=== PATIENT | female | born 1955 | race Caucasian/White ===

== ENCOUNTER → 2016-10-14 | Outpatient (CLI) | payer OTHER ==
[~2016-10-14] MED LIST: CEPH500C PO
== END | disposition home or self-care (01) ==
LOC: C.CPL 16:28
PROVIDERS: ATTEND Orthopaedic Surgery
DX: Z01.810 Encounter for preprocedural cardiovascular examination (principal)

== ENCOUNTER 2017-08-16 11:05 | Emergency (ER) | payer OTHER ==
[~2017-08-16] VITALS: Ht 162.6 cm; Wt 86.9 kg
[2017-08-16 11:09] VITALS: Ht 162.6 cm; Wt 86.9 kg
[2017-08-16] MEDS ORDERED: ASPIRIN 81 MG CHEW PO STA (11:14)
[2017-08-16 11:23] VITALS: O2SAT 95
--- NOTE | 2017-08-16 11:33 | EMERGENCY ROOM VISIT NOTE ---
History Report prepared by Kendal: Teresa Cody Under the Supervision of: Dr. Zhang Ram D.O. First contact with patient: 11:12 Chief Complaint: SHORTNESS OF BREATH Stated Complaint: EKG SIGNS OF A HEART ATTACK-DR. ESPINOSA SENT TO ER History of Present Illness The patient is a 62 year old female who presents to the Emergency Room with complaints of constant shortness of breath for the past week. Pt stated that she had CP 7 days ago with difficulty swallowing. She describes her pain as feeling like "someone was sitting on my chest." She went to bed and woke up the next morning still experiencing pain. Her pain resolved by dinnertime. Since then she has been experiencing shortness of breath that is worsened with exertion. She went to see her PCP today for these symptoms. She had an ECG in the office that was concerning and required for further follow-up. Her PCP, Dr. Espinosa, sent her to the ED for further evaluation. She was not given any medications [employer]. Patient denies any current chest pain. She also denies nausea, vomiting, abdominal pain, and any pain or swelling in her legs. She has been having normal BMs. Pt denies PMHx of CT. She has never had a stress test or previous cardiac catheterization. Pt has FHx of CT (father at 70 y/o), but no family members have sudden cardiac . Source of History: patient Onset: 1 week ago Position: chest (respiratory) Quality: other (shortness of breath) Timing: constant Modifying Factors (Worsening): exertion Associated Symptoms: No nausea, No vomiting, No abdominal pain Review of Systems See HPI for pertinent positives & negatives. A total of 10 systems reviewed and were otherwise negative. Past Medical & Surgical Medical Problems: (1) Contusion of foot (2) Diverticulitis Family History Heart disease Social History Smoking Status: Never Smoker Smokeless Tobacco Use: No Alcohol Use: none Current/Historical Medications No Active Prescriptions or Reported Meds Allergies Coded Allergies: BEE STING (Unverified Allergy, Mild, ANAPHLYAXIS, 08/16/17) Peppermint Oil (Unverified Allergy, Unknown, 08/16/17) Physical Exam Vital Signs Date Time Temp Pulse Resp B/P (MAP) Pulse Ox O2 Delivery O2 Flow Rate FiO2 08/16/17 14:35 36.5 62 18 127/83 99 08/16/17 14:27 62 18 127/83 99 Room Air 08/16/17 12:54 62 18 130/83 99 Room Air 08/16/17 12:40 65 22 95 08/16/17 12:35 65 19 97 08/16/17 12:31 146/58 08/16/17 12:28 63 18 129/54 96 Room Air 08/16/17 12:05 69 16 96 08/16/17 12:01 129/54 08/16/17 11:51 64 18 129/45 97 Room Air 08/16/17 11:48 129/45 08/16/17 11:35 70 13 97 08/16/17 11:29 68 08/16/17 11:23 95 Room Air 08/16/17 11:23 95 Room Air 08/16/17 11:23 95 Room Air 08/16/17 11:09 36.5 70 18 166/77 94 Room Air Physical Exam GENERAL: Patient is awake, alert, and in no acute distress. Patient is resting comfortably and showing no signs of anxiety EYES: The conjunctivae are clear. The pupils are round and reactive. EARS, NOSE, MOUTH AND THROAT: The nose is without any evidence of any deformity. Mucous membranes are moist tongue is midline NECK: The neck is nontender and supple. RESPIRATORY: Normal respiratory effort is noted there is no evidence of wheezing rhonchi or rales CARDIOVASCULAR: Regular rate and rhythm noted there no murmurs rubs or gallops normal S1 normal S2 GASTROINTESTINAL: The abdomen is soft. Bowel sounds are present in all quadrants. Abdomen is nontender MUSCULOSKELETAL/EXTREMITIES: There is no evidence of gross deformity full range of motion is noted in the hips and shoulders SKIN: There is no obvious evidence of any rash. There are no petechiae, pallor or cyanosis noted. NEUROLOGIC: Patient is awake alert and oriented x3 Medical Decision & Procedures ER Provider Diagnostic Interpretation: Radiology results as stated below per my review and radiologist interpretation: CHEST ONE VIEW PORTABLE CLINICAL HISTORY: Respiratory distress COMPARISON STUDY: 01/15/2013 FINDINGS: The cardiac and mediastinal contours are normal. There is no evidence of focal pulmonary consolidation. There is no evidence of failure. No pleural effusions are visualized.[ IMPRESSION: No active disease in the chest. Electronically signed by: Kenan Ji M.D. 08/16/2017 11:48 AM Dictated Date/Time: 08/16/2017 11:48 AM Laboratory Results 08/16/17 11:28 Red Blood Count 4.53, Mean Corpuscular Volume 92.9, Mean Corpuscular Hemoglobin 31.1, Mean Corpuscular Hemoglobin Concent 33.5, Mean Platelet Volume 9.8, Neutrophils (%) (Auto) 65.8, Lymphocytes (%) (Auto) 27.4, Monocytes (%) (Auto) 5.2, Eosinophils (%) (Auto) 1.2, Basophils (%) (Auto) 0.2, Neutrophils # (Auto) 5.43, Lymphocytes # (Auto) 2.27, Monocytes # (Auto) 0.43, Eosinophils # (Auto) 0.10, Basophils # (Auto) 0.02 08/16/17 11:28 Test 08/16/17 11:28 08/16/17 11:33 08/16/17 11:50 White Blood Count 8.27 K/uL (4.8-10.8) Red Blood Count 4.53 M/uL (4.2-5.4) Hemoglobin 14.1 g/dL (12.0-16.0) Hematocrit 42.1 % (37-47) Mean Corpuscular Volume 92.9 fL (80-100) Mean Corpuscular Hemoglobin 31.1 pg (25-34) Mean Corpuscular Hemoglobin Concent 33.5 g/dl (32-36) Platelet Count 261 K/uL (130-400) Mean Platelet Volume 9.8 fL (7.4-10.4) Neutrophils (%) (Auto) 65.8 % Lymphocytes (%) (Auto) 27.4 % Monocytes (%) (Auto) 5.2 % Eosinophils (%) (Auto) 1.2 % Basophils (%) (Auto) 0.2 % Neutrophils # (Auto) 5.43 K/uL (1.4-6.5) Lymphocytes # (Auto) 2.27 K/uL (1.2-3.4) Monocytes # (Auto) 0.43 K/uL (0.11-0.59) Eosinophils # (Auto) 0.10 K/uL (0-0.5) Basophils # (Auto) 0.02 K/uL (0-0.2) RDW Standard Deviation 44.6 fL (36.4-46.3) RDW Coefficient of Variation 13.1 % (11.5-14.5) Immature Granulocyte % (Auto) 0.2 % Immature Granulocyte # (Auto) 0.02 K/uL (0.00-0.02) Prothrombin Time 10.3 SECONDS (9.0-12.0) Prothromb Time International Ratio 1.0 (0.9-1.1) Activated Partial Thromboplast Time 26.3 SECONDS (21.0-31.0) Partial Thromboplastin Ratio 1.0 Anion Gap 7.0 mmol/L (3-11) Est Creatinine Clear Calc Drug Dose 56.2 ml/min Estimated GFR () 62.8 Estimated GFR (Non- 54.2 BUN/Creatinine Ratio 9.9 (10-20) Calcium Level 9.1 mg/dl (8.5-10.1) Total Bilirubin 0.5 mg/dl (0.2-1) Aspartate Amino Transf (AST/SGOT) 43 U/L (15-37) Alanine Aminotransferase (ALT/SGPT) 52 U/L (12-78) Alkaline Phosphatase 83 U/L (45-117) Total Creatine Kinase 91 U/L (26-192) Creatine Kinase MB 1.3 ng/ml (0.5-3.6) Creatine Kinase MB Ratio 1.4 (0-3.0) Troponin I < 0.015 ng/ml (0-0.045) Total Protein 7.8 gm/dl (6.4-8.2) Albumin 3.8 gm/dl (3.4-5.0) Globulin 4.0 gm/dl (2.5-4.0) Albumin/Globulin Ratio 1.0 (0.9-2) Bedside Troponin I < 0.030 ng/ml (0-0.045) Urine Color YELLOW Urine Appearance CLEAR (CLEAR) Urine pH 5.5 (4.5-7.5) Urine Specific [place] 1.025 (1.000-1.030) Urine Protein NEG (NEG) Urine Glucose (UA) NEG (NEG) Urine Ketones NEG (NEG) Urine Occult Blood NEG (NEG) Urine Nitrite NEG (NEG) Urine Bilirubin NEG (NEG) Urine Urobilinogen NEG (NEG) Urine Leukocyte Esterase NEG (NEG) Laboratory results per my review. Medications Administered Medications (Trade) Dose Ordered Sig/Theresa Route Start Time Stop Time Status Last Admin Dose Admin Aspirin (Aspirin Chew) 324 mg NOW STAT PO 08/16/17 11:14 08/16/17 11:15 DC 08/16/17 11:29 324 MG ECG Indication: SOB/dyspnea Rate (beats per minute): 65 Rhythm: normal sinus Findings: T-wave inversion (lateral and apical), other (no PVCs) Comparison ECG Date: 10/14/16 Change: no significant change ED Course 1112: The patient was evaluated in room C5. A complete history and physical examination were performed. 1114: Aspirin 324 mg PO 1246: I spoke with Dr. Alvarez of cardiology regarding the patient's case. He will take the patient for a stress test today. 1249: I updated the patient and she is in agreement with the treatment plan. 1423: I spoke with Dr. Alvarez again. The patient's stress test was negative. He felt that she could be discharged with out patient followup. 1426: I reassessed the patient at this time. She is feeling better and resting comfortably. I discussed the results and treatment plan with the patient. I answered all pertaining questions that she had. She expressed understanding and verbalized agreement. The patient will be discharged home. Medical Decision Differential diagnosis: Etiologies such as cardiac ischemia, aortic dissection, pulmonary embolism, pneumonia, pneumothorax, musculoskeletal, infections, pericarditis, myocarditis , esophageal rupture, gastrointestinal, as well as others were entertained. Nursing notes reviewed. The patient's EKG which was sent from her primary care physician's office was also reviewed. The patient is a 62-year-old female who presented to emergency department for an evaluation of chest pain. The patient had an episode of chest pain. Days ago which resolved spontaneously. She follow-up with her primary care physician today and was sent to the emergency department for an abnormal EKG. The patient' s EKG from the office as well as today in the emergency department appears very similar to a previous EKG that was in our system. The patient did not have an elevation in her cardiac biomarkers. The patient did not have any chest pain or discomfort at this time. I discussed her case with the on-call [facility] sports teacher. The patient had a stress test while she was in the emergency Department which did not reveal any signs of ischemia. I discussed the patient' s laboratory and radiographic studies with her. I discussed the limitations of the emergency department workup for chest pain including a stress test. She was encouraged to follow-up with her primary care physician as soon as possible and rest. Otherwise she was encouraged to return to the emergency department immediately if symptoms change worsen or the need arises. Medication Reconcilliation Current Medication List: was personally reviewed by me Blood Pressure Screening Patient's blood pressure: Normal blood pressure Consults Time Called: 1243 Consulting Physician: Dr. Alvarez Returned Call: [address] Alvarez of cardiology regarding the patient's case. He will take the patient for a stress test today. Additional Consults: Time Called: 1423 Consulted Physician: Dr. Alvarez Returned Call: 1423 Additional Comments: I spoke with Dr. Alvarez again. The patient's stress test was negative. He felt that she could be discharged with out patient followup. Impression Primary Impression: Atypical chest pain Scribe Attestation The scribe's documentation has been prepared under my direction and personally reviewed by me in its entirety. I confirm that the note above accurately reflects all work, treatment, procedures, and medical decision making performed by me. Departure Information Dispostion Home / Self-Care Prescriptions No Active Prescriptions or Reported Meds Referrals Kenneth Espinosa III, M.D. (PCP) Forms HOME CARE DOCUMENTATION FORM, IMPORTANT VISIT INFORMATION, Work Instructions Patient Instructions ED Chest Pain Atypical Unkn Cause, My [facility] Additional Instructions Call your family to schedule a follow-up appointment. Rest and avoid any strenuous activity. Return to the emergency department immediately if symptoms change worsen or the need arises.
[2017-08-16 11:38] LABS: BASO % 0.2 %; BASO ABS # 0.02 K/uL (0-0.2); COMPLETE YES; EOS % 1.2 %; HEMATOCRIT 42.1 % (37-47); IG% 0.2 %; LYMPH % 27.4 %; LYMPH ABS # 2.27 K/uL (1.2-3.4); MEAN CELL VOLUME 92.9 fL (80-100); MEAN CORPUSCULAR HEMOGLOBIN 31.1 pg (25-34); MEAN CORPUSCULAR HGB CONC 33.5 g/dl (32-36); MEAN PLATELET VOLUME 9.8 fL (7.4-10.4); MONO % 5.2 %; NEUT % 65.8 %; PLATELET COUNT 261 K/uL (130-400); RED BLOOD COUNT 4.53 M/uL (4.2-5.4); WHITE BLOOD COUNT 8.27 K/uL (4.8-10.8)
--- NOTE | 2017-08-16 11:49 | DIAGNOSTIC IMAGING REPORT ---
CHEST ONE VIEW PORTABLE CLINICAL HISTORY: Respiratory distress COMPARISON STUDY: 01/15/2013 FINDINGS: The cardiac and mediastinal contours are normal. There is no evidence of focal pulmonary consolidation. There is no evidence of failure. No pleural effusions are visualized.[ IMPRESSION: No active disease in the chest. Electronically signed by: Kenan Ji M.D. 08/16/2017 11:48 AM Dictated Date/Time: 08/16/2017 11:48 AM
[2017-08-16 11:50] LABS: PROTHROMBIN TIME (PATIENT) 10.3 SECONDS (9.0-12.0)
[2017-08-16 11:56] LABS: ALT/SGPT 52 U/L (12-78); BLOOD UREA NITROGEN 11 mg/dl (7-18); BUN/CREATININE RATIO 9.9 (10-20); CALCIUM 9.1 mg/dl (8.5-10.1); CARBON DIOXIDE 29 mmol/L (21-32); CHLORIDE 103 mmol/L (98-107); CREATININE 1.08 mg/dl (0.60-1.20); GLUCOSE 105 mg/dl (70-99); SODIUM 139 mmol/L (136-145)
[2017-08-16 12:00] LABS: MANUAL MICROSCOPIC REQUIRED? NO; URINE APPEARANCE CLEAR (CLEAR); URINE BILIRUBIN NEG (NEG); URINE COLOR YELLOW; URINE NITRITE NEG (NEG); URINE PH 5.5 (4.5-7.5); URINE SPECIFIC GRAVITY 1.025 (1.000-1.030); UROBILINOGEN NEG (NEG)
[2017-08-16 12:02] LABS: ALKALINE PHOSPHATASE 83 U/L (45-117); AST/SGOT 43 U/L (15-37); CKMB/CK RATIO 1.4 (0-3.0)
[2017-08-16 12:04] LABS: REVIEW REQ? NO
[2017-08-16 14:35] VITALS: BP 127/83; PULSE 62; TEMP 36.5; O2SAT 99
--- NOTE | 2017-08-16 14:44 | EXERCISE STRESS ECHO ---
*NOTICE TO RECEIVING REPUBLICAN AGENCY This information is strictly Confidential and protected under [place] law. [place] law prohibits you from making any further disclosure of this information unless further disclosure is expressly permitted by the written consent of the person to whom it pertains or is authorized by law. A general authorization for the release of medical or other information is not sufficient for this purpose. Hospital accepts no responsibility if the information is made available to any other person, INCLUDING THE PATIENT. Interpretation Summary * Name: LIT RAWLS Study Date: 08/16/2017 12:52 PM BP: 150/77 mmHg * Patient [facility]: [facility] HR: 59 * : 1955 (M/d/yyyy) Gender: Female Height: 64 in * Age: 62 yrs Ethnicity: [place] Weight: 191 lb * Ordering Physician: Zhang Ram * Referring Physician: Kenneth Castano * Performed By: Yodit Bruce RDCS * * Reason For Study: CHEST PAIN * BSA: 1.9 m2 * STRESS STUDY: Normal exercise stress echocardiogram. No echocardiographic or ECG evidence of myocardial ischemia having achieved heart rate adequate for diagnostic purposes. * -- Conclusions -- * STRESS STUDY: Normal exercise stress echocardiogram. No echocardiographic or ECG evidence of myocardial ischemia having achieved heart rate adequate for diagnostic purposes. Procedure Details * ECHOEX, CPT #39220 * A contrast injection of Definity was performed to improve assessment of LV function. * Contrast was injected into an intravenous site in the right arm. * One vial of Definity ultrasound contrast was diluted in normal saline to a total volume of 10 ml. A total of '4' ml of solution was administered during imaging. * Lot # [id number] of Definity utilized for procedure. * The attending nurse who injected the contrast agent was JOSÉ ANTONIO BARTLETT RN. * Expiration date SEP 12. Left Ventricle * The left ventricle is normal in size. * There is normal left ventricular wall thickness. * Ejection Fraction = 65-70%. * Resting wall motion: Normal. Stress wall motion: Appropriate increase in Left ventricular systolic function and decrease in cavity size. No stress induced segmental wall motion abnormalities. Right Ventricle * The right ventricle is normal size. * The right ventricular systolic function is normal. Atria * The left atrial size is normal. * Right atrial size is normal. * The interatrial septum is intact with no evidence for an atrial septal defect. Mitral Valve * The mitral valve is grossly normal. * Significant mitral regurgitation is absent. Tricuspid Valve * The tricuspid valve is not well visualized, but is grossly normal. * Significant tricuspid regurgitation is absent. Aortic Valve * The aortic valve is trileaflet. * No hemodynamically significant valvular aortic stenosis. * There is no significant aortic regurgitation. Pulmonic Valve * The pulmonic valve is not well visualized. Great Vessels * The aortic root and proximal ascending aorta are normal sized. Pericardium * There is no pericardial effusion. Stress Parameters * Normal baseline electrocardiogram. * The stress ECG response was normal * Stress ECG: No ST changes. No arrhythmias. * The stress portion of this study was personally supervised by the undersigned interpreting physician. * Rest heart rate was '59' BPM. * Rest blood pressure was '150/77' * Maximum heart rate achieved was 144 bpm. * Maximum heart rate was 92 % of maximum age-predicted heart rate. * Maximum blood pressure was '179/47' * Total exercise time was '4:11' * Maximum exercise MET level achieved was '6.00' METS * Maximum treadmill speed was '2.50' miles per hour. * Maximum treadmill elevation was '12'% grade. * Exercise was terminated due to 'ACHIEVING TARGET HR' Right Ventricle * The right ventricular wall motion is normal. MMode 2D Measurements and Calculations IVSd 0.95 cm IVSs 1.5 cm LVIDd 4.1 cm LVIDs 2.8 cm LVPWd 1.3 cm LVPWs 1.8 cm IVS/LVPW 0.72 FS 33.0 % EDV(Teich) 74.3 ml ESV(Teich) 28.3 ml EF(Teich) 62.0 % EDV(cubed) 69.1 ml ESV(cubed) 20.8 ml EF(cubed) 69.9 % % IVS thick 55.6 % % LVPW thick 34.7 % LV mass(C)d 157.7 grams LV mass(C)dI 82.2 grams/m\S\2 LV mass(C)s 162.6 grams LV mass(C)sI 84.8 grams/m\S\2 SV(Teich) 46.1 ml SI(Teich) 24.0 ml/m\S\2 SV(cubed) 48.3 ml SI(cubed) 25.2 ml/m\S\2 Ao root diam 2.4 cm Ao root area 4.4 cm\S\2 LA dimension 3.6 cm LA/Ao 1.5 LVAd ap4 23.1 cm\S\2 LVLd ap4 8.0 cm EDV(MOD-sp4) 56.9 ml EDV(sp4-el) 56.5 ml LVAs ap4 11.4 cm\S\2 LVLs ap4 6.4 cm ESV(MOD-sp4) 19.1 ml ESV(sp4-el) 17.1 ml EF(MOD-sp4) 66.4 % EF(sp4-el) 69.7 % LVAd ap2 18.1 cm\S\2 LVLd ap2 7.2 cm EDV(MOD-sp2) 37.1 ml EDV(sp2-el) 38.4 ml LVAs ap2 10.1 cm\S\2 LVLs ap2 6.5 cm ESV(MOD-sp2) 14.2 ml ESV(sp2-el) 13.4 ml EF(MOD-sp2) 61.6 % EF(sp2-el) 65.1 % LVLd %diff -10.61 % EDV(MOD-bp) 47.4 ml LVLs %diff 1.5 % ESV(MOD-bp) 16.5 ml EF(MOD-bp) 65.2 % SV(MOD-sp4) 37.8 ml SI(MOD-sp4) 19.7 ml/m\S\2 SV(MOD-sp2) 22.9 ml SI(MOD-sp2) 11.9 ml/m\S\2 SV(MOD-bp) 30.9 ml SI(MOD-bp) 16.1 ml/m\S\2 SV(sp4-el) 39.4 ml SI(sp4-el) 20.5 ml/m\S\2 SV(sp2-el) 25.0 ml SI(sp2-el) 13.0 ml/m\S\2 Doppler Measurements and Calculations MV E max chris 63.7 cm/sec MV A max chris 70.5 cm/sec MV E/A 0.90 MV dec time 0.21 sec Ao V2 max 119.8 cm/sec Ao max PG 5.7 mmHg Ao max PG (full) 2.7 mmHg LV V1 max PG 3.0 mmHg LV V1 max 86.7 cm/sec
== END 2017-08-16 14:37 | disposition home or self-care (01) ==
LOC: C.EDB 11:07 → C.EDC 14:37
DX: R07.89 Other chest pain (principal); K57.92 Diverticulitis of intestine, part unspecified, without perforation or abscess without bleeding; Z87.828 Personal history of other (healed) physical injury and trauma; Z91.018 Allergy to other foods; Z91.030 Bee allergy status; Z82.49 Family history of ischemic heart disease and other diseases of the circulatory system

== ENCOUNTER 2017-09-15 11:45 | Emergency (ER) | payer OTHER ==
[~2017-09-15] VITALS: Ht 157.5 cm; Wt 87.2 kg
[2017-09-15 11:50] VITALS: Ht 157.5 cm; Wt 87.2 kg
[2017-09-15] MEDS ORDERED: SODIUM CHLORIDE 0.9% 500ML 500 ML IV STA (12:09)
[2017-09-15] MEDS ORDERED: OPTIRAY 320 IV PRN (12:15)
[2017-09-15 12:55] LABS: BASO % 0.2 %; BASO ABS # 0.02 K/uL (0-0.2); COMPLETE YES; EOS % 0.7 %; HEMATOCRIT 38.9 % (37-47); IG% 0.2 %; LYMPH % 19.5 %; LYMPH ABS # 2.35 K/uL (1.2-3.4); MEAN CELL VOLUME 92.8 fL (80-100); MEAN CORPUSCULAR HEMOGLOBIN 31.3 pg (25-34); MEAN CORPUSCULAR HGB CONC 33.7 g/dl (32-36); MEAN PLATELET VOLUME 9.8 fL (7.4-10.4); MONO % 5.1 %; NEUT % 74.3 %; PLATELET COUNT 239 K/uL (130-400); RED BLOOD COUNT 4.19 M/uL (4.2-5.4); WHITE BLOOD COUNT 12.05 K/uL (4.8-10.8)
[2017-09-15 12:58] LABS: URINE APPEARANCE CLEAR (CLEAR); URINE BILIRUBIN NEG (NEG); URINE COLOR YELLOW; URINE EPITHELIAL CELL AUTO >30 /lpf (0-5); URINE NITRITE NEG (NEG); URINE SPECIFIC GRAVITY 1.019 (1.000-1.030); UROBILINOGEN NEG (NEG); ZZUR CULT IF INDIC CLEAN CATCH NO
[2017-09-15 13:03] LABS: MANUAL MICROSCOPIC REQUIRED? NO; REVIEW REQ? NO
[2017-09-15 13:14] LABS: BUN/CREATININE RATIO 15.3 (10-20); CALCIUM 8.6 mg/dl (8.5-10.1); CREATININE 0.95 mg/dl (0.60-1.20); POTASSIUM 3.7 mmol/L (3.5-5.1)
[2017-09-15] MEDS ORDERED: ONDANSETRON INJ 2 MG/ML 2 ML VIAL IV STA (13:51)
[2017-09-15] MEDS ORDERED: MoRPHine SULFATE 4 MG/ML 1 ML CARP\\VIAL IV STA (13:51)
--- NOTE | 2017-09-15 14:10 | DIAGNOSTIC IMAGING REPORT ---
CT ABD/PELVIS IV CONTRAST ONLY CLINICAL HISTORY: Left lower quadrant abdominal pain COMPARISON STUDY: January 2007 TECHNIQUE: Following the IV administration of 93 mL of Optiray-320, CT scan of the abdomen and pelvis was performed from the lung bases to the proximal femurs. Images are reviewed in the axial, sagittal, and coronal planes. IV contrast was administered without complication. A dose lowering technique was utilized adhering to the principles of ALARA. CT DOSE: 700.20 mGy.cm FINDINGS: Lower chest: There is mild bibasilar dependent atelectasis. Liver: There is hepatic steatosis. No focal masses are visualized. Gallbladder: Unremarkable. Spleen: The spleen is lobulated and mildly enlarged measuring 13.4 cm. Pancreas: Unremarkable. Adrenal glands: Unremarkable. Kidneys: There is symmetric renal cortical enhancement. The kidneys are normal in size without hydronephrosis. Bowel: There are no transition zones indicate bowel obstruction. There is a focal area of colonic wall thickening with infiltration of the pericolonic fat at the mid descending colonic level. The findings are indicative of acute diverticulitis. There is no evidence of acute appendicitis. Peritoneum: There is no intraperitoneal free air or abdominal ascites. Vasculature: There is no evidence of abdominal aortic aneurysm. 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 Adenopathy: None. Pelvic viscera: The uterus appears surgically absent. Skeletal structures: No destructive osseous lesions are seen. IMPRESSION: 1. Acute diverticulitis of the mid descending colon. No evidence of peridiverticular abscess 2. Mild splenomegaly Electronically signed by: Kenan Ji M.D. 09/15/2017 2:08 PM Dictated Date/Time: 09/15/2017 2:04 PM
[2017-09-15] MEDS ORDERED: METRONIDAZOLE 500MG / 100ML NSS IV STA (14:39)
[2017-09-15] MEDS ORDERED: CIPROFLOXACIN 500 MG TAB PO STA (14:39)
[2017-09-15] MEDS ORDERED: METR500T PO (14:43)
[2017-09-15] MEDS ORDERED: CIPR-255 PO (14:43)
[2017-09-15] MEDS ORDERED: OXYC1TAB3 PO (14:45)
[2017-09-15 15:22] VITALS: BP 127/62; PULSE 75; TEMP 37; O2SAT 94
--- NOTE | 2017-09-15 16:12 | EMERGENCY ROOM VISIT NOTE ---
History Report prepared by Scribe: Daina Espinoza Under the Supervision of: Dr. Kendell Alegre D.O. First contact with patient: 12:04 Chief Complaint: FLANK PAIN Stated Complaint: PAIN ON L SIDE History of Present Illness The patient is a 62 year old female who presents to the Emergency Room with complaints of persistent left sided flank pain since last night. She rates her discomfort as a 7/10. She denies any nausea, vomiting, diarrhea, melena or hematochezia. Holding pressure on her flank area helps to relieve her pain. She still has both her appendix and gallbladder. Her last BM was yesterday and normal. The patient denies any headache, change in vision, fevers, cough, chest pain, shortness of breath, pain with urination. She admits to a history of diverticulitis but states the pain she is experiencing now does not feel similar. Source of History: patient Onset: last night Position: back (left sided flank) Symptom Intensity: 7/10 Timing: other (persistent) Modifying Factors (Relieving): other (pressure) Associated Symptoms: No fevers, No headache, No cough, No chest pain, No SOB , No nausea, No vomiting, No melena, No hematochezia, No diarrhea, No urinary symptoms Review of Systems See HPI for pertinent positives & negatives. A total of 10 systems reviewed and were otherwise negative. Past Medical & Surgical Medical Problems: (1) Contusion of foot (2) Diverticulitis Family History Heart disease Social History Smoking Status: Never Smoker Alcohol Use: none Drug Use: none Marital Status: Housing Status: lives with family Occupation Status: retired Current/Historical Medications Scheduled Ciprofloxacin Hcl (Cipro), 500 MG PO BID Metronidazole (Flagyl), 500 MG PO TID Scheduled PRN Oxycodone Immediate Rel Tab (Roxicodone Ir), 5 MG PO Q6H PRN for Pain Allergies Coded Allergies: BEE STING (Unverified Allergy, Mild, ANAPHLYAXIS, 09/15/17) Peppermint Oil (Unverified Allergy, Unknown, 09/15/17) Physical Exam Vital Signs Date Time Temp Pulse Resp B/P (MAP) Pulse Ox O2 Delivery O2 Flow Rate FiO2 09/15/17 15:22 37.0 75 16 127/62 94 Room Air 09/15/17 14:33 81 18 115/45 95 Room Air 09/15/17 13:48 78 18 139/64 98 Room Air 09/15/17 11:50 36.8 89 20 147/68 94 Room Air Physical Exam GENERAL: Sitting up in bed, alert, holding left flank, in minimal distress EYE EXAM: normal conjunctiva. OROPHARYNX: no exudate, no erythema, lips, buccal mucosa, and tongue normal and mucous membranes are moist NECK: supple, no nuchal rigidity, no adenopathy, non-tender LUNGS: Clear to auscultation. Normal chest wall mechanics HEART: no murmurs, S1 normal and S2 normal ABDOMEN: abdomen soft, tender to palpation in LLQ, normo-active bowel sounds, no masses, no rebound or guarding. BACK: Back is symmetrical on inspection and there is no deformity, no midline tenderness, no CVA tenderness. SKIN: no rashes and no bruising UPPER EXTREMITIES: upper extremities are grossly normal. LOWER EXTREMITIES: No pitting edema. NEURO EXAM: Normal sensorium, cranial nerves II-XII grossly intact, normal speech, no gross weakness of arms, no gross weakness of legs. Gross sensation intact. Medical Decision & Procedures ER Provider Diagnostic Interpretation: Radiology results as stated below per my review and the radiologist's interpretation: CT ABD/PELVIS IV CONTRAST ONLY CLINICAL HISTORY: Left lower quadrant abdominal pain COMPARISON STUDY: January 2007 TECHNIQUE: Following the IV administration of 93 mL of Optiray-320, CT scan of the abdomen and pelvis was performed from the lung bases to the proximal femurs. Images are reviewed in the axial, sagittal, and coronal planes. IV contrast was administered without complication. A dose lowering technique was utilized adhering to the principles of ALARA. CT DOSE: 700.20 mGy.cm FINDINGS: Lower chest: There is mild bibasilar dependent atelectasis. Liver: There is hepatic steatosis. No focal masses are visualized. Gallbladder: Unremarkable. Spleen: The spleen is lobulated and mildly enlarged measuring 13.4 cm. Pancreas: Unremarkable. Adrenal glands: Unremarkable. Kidneys: There is symmetric renal cortical enhancement. The kidneys are normal in size without hydronephrosis. Bowel: There are no transition zones indicate bowel obstruction. There is a focal area of colonic wall thickening with infiltration of the pericolonic fat at the mid descending colonic level. The findings are indicative of acute diverticulitis. There is no evidence of acute appendicitis. Peritoneum: There is no intraperitoneal free air or abdominal ascites. Vasculature: There is no evidence of abdominal aortic aneurysm. 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 Adenopathy: None. Pelvic viscera: The uterus appears surgically absent. Skeletal structures: No destructive osseous lesions are seen. IMPRESSION: 1. Acute diverticulitis of the mid descending colon. No evidence of peridiverticular abscess 2. Mild splenomegaly Electronically signed by: Kenan Ji M.D. 09/15/2017 2:08 PM Laboratory Results 09/15/17 12:35 Red Blood Count 4.19, Mean Corpuscular Volume 92.8, Mean Corpuscular Hemoglobin 31.3, Mean Corpuscular Hemoglobin Concent 33.7, Mean Platelet Volume 9.8, Neutrophils (%) (Auto) 74.3, Lymphocytes (%) (Auto) 19.5, Monocytes (%) (Auto) 5.1, Eosinophils (%) (Auto) 0.7, Basophils (%) (Auto) 0.2, Neutrophils # (Auto) 8.94, Lymphocytes # (Auto) 2.35, Monocytes # (Auto) 0.62, Eosinophils # (Auto) 0.09, Basophils # (Auto) 0.02 09/15/17 12:35 Test 09/15/17 12:35 White Blood Count 12.05 K/uL (4.8-10.8) Red Blood Count 4.19 M/uL (4.2-5.4) Hemoglobin 13.1 g/dL (12.0-16.0) Hematocrit 38.9 % (37-47) Mean Corpuscular Volume 92.8 fL (80-100) Mean Corpuscular Hemoglobin 31.3 pg (25-34) Mean Corpuscular Hemoglobin Concent 33.7 g/dl (32-36) Platelet Count 239 K/uL (130-400) Mean Platelet Volume 9.8 fL (7.4-10.4) Neutrophils (%) (Auto) 74.3 % Lymphocytes (%) (Auto) 19.5 % Monocytes (%) (Auto) 5.1 % Eosinophils (%) (Auto) 0.7 % Basophils (%) (Auto) 0.2 % Neutrophils # (Auto) 8.94 K/uL (1.4-6.5) Lymphocytes # (Auto) 2.35 K/uL (1.2-3.4) Monocytes # (Auto) 0.62 K/uL (0.11-0.59) Eosinophils # (Auto) 0.09 K/uL (0-0.5) Basophils # (Auto) 0.02 K/uL (0-0.2) RDW Standard Deviation 45.0 fL (36.4-46.3) RDW Coefficient of Variation 13.4 % (11.5-14.5) Immature Granulocyte % (Auto) 0.2 % Immature Granulocyte # (Auto) 0.03 K/uL (0.00-0.02) Urine Color YELLOW Urine Appearance CLEAR (CLEAR) Urine pH 5.0 (4.5-7.5) Urine Specific Neche 1.019 (1.000-1.030) Urine Protein NEG (NEG) Urine Glucose (UA) NEG (NEG) Urine Ketones NEG (NEG) Urine Occult Blood NEG (NEG) Urine Nitrite NEG (NEG) Urine Bilirubin NEG (NEG) Urine Urobilinogen NEG (NEG) Urine Leukocyte Esterase NEG (NEG) Urine WBC (Auto) 1-5 /hpf (0-5) Urine RBC (Auto) 0-4 /hpf (0-4) Urine Hyaline Casts (Auto) 1-5 /lpf (0-5) Urine Epithelial Cells (Auto) >30 /lpf (0-5) Urine Bacteria (Auto) NEG (NEG) Anion Gap 7.0 mmol/L (3-11) Est Creatinine Clear Calc Drug Dose 61.3 ml/min Estimated GFR () 73.4 Estimated GFR (Non- 63.3 BUN/Creatinine Ratio 15.3 (10-20) Calcium Level 8.6 mg/dl (8.5-10.1) Total Bilirubin 0.8 mg/dl (0.2-1) Direct Bilirubin 0.1 mg/dl (0-0.2) Aspartate Amino Transf (AST/SGOT) 51 U/L (15-37) Alanine Aminotransferase (ALT/SGPT) 45 U/L (12-78) Alkaline Phosphatase 76 U/L (45-117) Total Protein 7.3 gm/dl (6.4-8.2) Albumin 3.5 gm/dl (3.4-5.0) Lipase 198 U/L (73-393) Laboratory results per my review. Medications Administered Medications (Trade) Dose Ordered Sig/Theresa Route Start Time Stop Time Status Last Admin Dose Admin Sodium Chloride 500 ml @ 999 mls/hr Q31M STAT IV 09/15/17 12:09 09/15/17 12:39 DC 09/15/17 12:09 999 MLS/HR Ondansetron HCl (Zofran Inj) 4 mg NOW STAT IV 09/15/17 13:51 09/15/17 13:52 DC 09/15/17 13:59 4 MG Morphine Sulfate (MoRPHine SULFATE INJ) 4 mg NOW STAT IV 09/15/17 13:51 09/15/17 13:52 DC 09/15/17 14:00 4 MG Metronidazole (Flagyl / Nss) 500 mg NOW STAT IV 09/15/17 14:39 09/15/17 14:40 DC 09/15/17 14:56 500 MG Ciprofloxacin (Cipro Tab) 500 mg NOW STAT PO 09/15/17 14:39 09/15/17 14:40 DC 09/15/17 14:56 500 MG ED Course ED COURSE: Vital signs were reviewed and showed the patient is hypertensive. The patients medical record was reviewed The above diagnostic studies were performed and reviewed. ED treatments and interventions as stated above. 1205: The patient was evaluated in room B2. A complete history and physical examination was performed. 1209: NSS 500 ml @ 999 mls/hr IV. 1351: Morphine Sulfate 4 mg IV, Zofran 4 mg IV. 1435: Upon reevaluation, the patient is resting comfortably and feeling well. I discussed my findings with the patient and she understands and agrees with the treatment plan. 1439: Cipro 500 mg PO, Flagyl 500 mg IV. Based on the patients age, coexisting illnesses, exam and lab findings the decision to treat as an outpatient was made. The patient remained stable while under my care. The patient appeared well at the time of discharge. Medical Decision Differential diagnoses includes but is not limited to gastritis, peptic ulcer disease, GERD, gallbladder disease, pancreatitis, small bowel obstruction, acute coronary syndrome, pericarditis, ischemic bowel, irritable bowel disease, irritable bowel syndrome, appendicitis, diverticulitis, malignancy, hernia, urinary tract infection, torsion, /ectopic , perforation, trauma, infectious. Patient is a 62-year-old female who presents to ER for left flank pain. On exam she is tender to palpation in the left lower quadrant. History of diverticulitis. CBC shows a mild leukocytosis. BMP all LFTs, bilirubin and lipase is unremarkable. UA was negative. Vitals were stable. Patient was given IV morphine. CT shows acute diverticulitis without perforation or abscess. Patient was given Flagyl IV and Cipro orally. Following this she was discharged with OxyIR following review of PDMP to follow-up with PCP. Discussed with Pt concerning signs and symptoms to watch out for. Pt was instructed to follow up with their PCP and discussed with the patient their option to return to the ED at anytime for persistent or worsening symptoms. The appropriate anticipatory guidance and out-patient management, including indications for return to the emergency department, were explained at length to the patient and understood. [place] Drug Monitoring Program Search Results: patient reviewed within database, no issues identified Medication Reconcilliation Current Medication List: was personally reviewed by me Blood Pressure Screening Patient's blood pressure: Elevated blood pressure Blood pressure disposition: Elevated BP felt to be situational Impression Primary Impression: Diverticulitis Scribe Attestation The scribe's documentation has been prepared under my direction and personally reviewed by me in its entirety. I confirm that the note above accurately reflects all work, treatment, procedures, and medical decision making performed by me. Departure Information Dispostion Home / Self-Care Prescriptions Oxycodone Immediate Rel Tab (ROXICODONE IR) 5 Mg Tab 5 MG PO Q6H Y for Pain, #10 TAB Prov: Kendell Alegre, DO 09/15/17 Ciprofloxacin Hcl (CIPRO) 500 Mg Tab 500 MG PO BID, #20 TAB Prov: Kendell Alegre, DO 09/15/17 Metronidazole (FLAGYL) 500 Mg Tab 500 MG PO TID, #10 TAB Prov: Kendell Alegre, DO 09/15/17 Referrals Kenneth Castano III, M.D. (PCP) Patient Instructions Diverticulitis Spike, [facility] Additional Instructions Please follow up with your primary care doctor or if you are a student, [facility] with in the next 24 hours. Any worsening of your symptoms, please return to the ED immediately. This includes any fevers greater than 100.4, worsening pain, chest pain, shortness breath, persistent nausea, vomiting, unable to eat or drink, or any other concerning signs or symptoms from your standpoint. You were given medications during this visit that will inhibit your ability to drive, operate machinery and work. Please do NOT drive, operate machinery or work for the next 12hrs. You were also given a prescription for a narcotic. While taking this medication you should also not drive, operate machinery and or work. Please take antibiotics as prescribed.
[2017-09-17] MEDS ORDERED: OXYC1TAB3 PO (02:14)
== END 2017-09-15 15:29 | disposition home or self-care (01) ==
LOC: C.EDB 11:46
DX: K57.92 Diverticulitis of intestine, part unspecified, without perforation or abscess without bleeding (principal); Z82.49 Family history of ischemic heart disease and other diseases of the circulatory system

== ENCOUNTER 2017-09-17 00:39 | Observation (INO) | payer OTHER ==
[~2017-09-17] VITALS: Ht 157.5 cm; Wt 84.0 kg
[~2017-09-17 00:39] MED LIST changes: -CEPH500C PO; +CIPR-255 PO; +METR500T PO; +OXYC-737 PO
[2017-09-17] MEDS ORDERED: MoRPHine SULFATE 4 MG/ML 1 ML CARP\\VIAL IV STA (01:01)
[2017-09-17] MEDS ORDERED: METRONIDAZOLE 500MG / 100ML NSS IV STA (01:01)
[2017-09-17] MEDS ORDERED: CIPROFLOXACIN 400MG / 200ML D5W IV STA (01:01)
[2017-09-17] MEDS ORDERED: SODIUM CHLORIDE 0.9% 500ML 500 ML IV STA (01:01)
[2017-09-17] MEDS ORDERED: ONDANSETRON INJ 2 MG/ML 2 ML VIAL IV STA ×2 (01:01→02:39)
[2017-09-17 01:17] LABS: BASO % 0.3 %; BASO ABS # 0.03 K/uL (0-0.2); EOS % 1.8 %; EOS ABS # 0.17 K/uL (0-0.5); HEMATOCRIT 38.8 % (37-47); IG# 0.02 K/uL (0.00-0.02); LYMPH % 24.5 %; LYMPH ABS # 2.29 K/uL (1.2-3.4); MEAN CORPUSCULAR HEMOGLOBIN 31.2 pg (25-34); MEAN CORPUSCULAR HGB CONC 33.5 g/dl (32-36); MEAN PLATELET VOLUME 9.7 fL (7.4-10.4); MONO % 6.2 %; MONO ABS # 0.58 K/uL (0.11-0.59); NEUT ABS # 6.27 K/uL (1.4-6.5); PLATELET COUNT 255 K/uL (130-400); RED CELL DISTRIBUTION WIDTH CV 13.2 % (11.5-14.5); RED CELL DISTRIBUTION WIDTH SD 44.7 fL (36.4-46.3); WHITE BLOOD COUNT 9.36 K/uL (4.8-10.8)
[2017-09-17 01:40] LABS: ALBUMIN 3.1 gm/dl (3.4-5.0); ALT/SGPT 50 U/L (12-78); AST/SGOT 70 U/L (15-37); BLOOD UREA NITROGEN 18 mg/dl (7-18); CALCIUM 8.5 mg/dl (8.5-10.1); CARBON DIOXIDE 27 mmol/L (21-32); CREATININE 1.12 mg/dl (0.60-1.20); GLUCOSE 118 mg/dl (70-99); LIPASE 192 U/L (73-393); POTASSIUM 3.8 mmol/L (3.5-5.1); SODIUM 138 mmol/L (136-145)
[2017-09-17 01:42] LABS: ALKALINE PHOSPHATASE 79 U/L (45-117); TOTAL PROTEIN 7.1 gm/dl (6.4-8.2)
[2017-09-17] MEDS ORDERED: CIPR-255 PO (02:12)
[2017-09-17] MEDS ORDERED: OXYC-90 PO (02:14)
[2017-09-17] MEDS ORDERED: METR-163 PO (02:15)
--- NOTE | 2017-09-17 03:37 | History and Physical ---
History & Physical Date & Time of Service: Sep 17, 2017 at 03:37 . Chief Complaint: nausea, vomiting, abdominal pain . Primary Care Physician: Kenneth Castano III, M.D. History of Present Illness Source: patient, clinic records, hospital records 62 YO female followed by Dr. Castano. Enjoys relatively good health except for few problems as noted below. History of diverticulosis demonstrated on colonoscopy in 2012. Presented to ED 09/15/[address] demonstrated acute diverticulitis of the mid descending colon. Discharged to home on oral ciprofloxacin and metronidazole. Returned to ED tonight with nausea and vomiting. No hematemesis. Abdominal pain somewhat worse, now involving low mid abdomen as well as left- side. Rates pain as moderately severe. No fever. No diarrhea or hematochezia. Feels bloated. . Past Medical/Surgical History Chronic and Resolved Medical Problems: (1) Diverticulosis of colon Status: Chronic (2) Iron disorder Permanent Comment: elevated Fe & ferritin; genetic testing for hemochromatosis negative 08/09/17 Status: Chronic (3) Normal stress echocardiography Permanent Comment: 08/16/17 Status: Resolved Surgical Problems: (1) Status post hysterectomy Status: Chronic (2) Status post tonsillectomy Status: Chronic Family History FATHER Heart disease MOTHER Diabetes mellitus SISTER Breast cancer Social History Smoking Status: Never Smoker Alcohol Use: none Drug Use: none Occupational Status: retired Multi-Drug Resistant Organisms History of MDRO: No Allergies Coded Allergies: BEE STING (Unverified Allergy, Mild, ANAPHLYAXIS, 09/15/17) Peppermint Oil (Unverified Allergy, Unknown, 09/15/17) Home Medications Scheduled Ciprofloxacin Hcl (Cipro), 500 MG PO BID Metronidazole (Flagyl), 500 MG PO TID Scheduled PRN Oxycodone Ir (Roxicodone Ir), 5 MG PO Q6H PRN for Pain Review of Systems Constitutional: + weight loss, No fever Eyes: No worsening of vision, No diplopia ENT: No nasal symptoms, No sore throat Respiratory: No cough, No shortness of breath Cardiovascular: No chest pain, No edema, No palpitations Abdomen: + problem reported (per HPI) Musculoskeletal: No joint pain Genitourinary - Female: No dysuria, No hematuria Endocrine: No excessive thirst, No excessive urination Hematologic / Lymphatic: No abnormal bleeding/bruising Integumentary: + rash (psoriasis), No new/changing skin lesions Physical Exam Vital Signs Date Time Temp Pulse Resp B/P (MAP) Pulse Ox O2 Delivery O2 Flow Rate FiO2 09/17/17 02:44 64 13 94 09/17/17 02:31 114/49 09/17/17 02:29 66 14 94 09/17/17 02:14 69 15 91 09/17/17 02:01 121/55 09/17/17 01:59 67 12 91 09/17/17 01:44 68 12 89 09/17/17 01:39 70 12 94 09/17/17 01:31 124/46 09/17/17 01:24 69 23 94 09/17/17 01:14 130/61 09/17/17 01:09 70 14 94 Room Air 09/17/17 00:58 73 09/17/17 00:48 36.3 75 20 137/62 92 Room Air General Appearance: + mild distress Head: normocephalic, atraumatic Eyes: normal inspection, PERRL, EOMI, sclerae normal ENT: hearing grossly normal, pharynx normal Neck: supple, no adenopathy, thyroid normal, no JVD, trachea midline Respiratory/Chest: lungs clear Cardiovascular: regular rate, rhythm, no edema, no gallop, no JVD, no murmur Abdomen/GI: + pertinent finding (quiet bowel sounds, moderately distended, soft , moderate left-sided and suprapubic tenderness without rebound or guarding; no palpable masses) Extremities/Musculoskelatal: normal inspection, no calf tenderness, normal capillary refill, no pedal edema 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 (PERRL, EOMI, no facial palsy), no motor/sensory deficits (grossly intact), alert, normal mood/affect, oriented x 3 Skin: normal color, warm/dry Lymphatic: no adenopathy (cervical) Diagnostics Laboratory Results Results Past 24 Hours Test 09/17/17 01:05 Range/Units White Blood Count 9.36 4.8-10.8 K/uL Red Blood Count 4.17 4.2-5.4 M/uL Hemoglobin 13.0 12.0-16.0 g/dL Hematocrit 38.8 37-47 % Mean Corpuscular Volume 93.0 80-100 fL Mean Corpuscular Hemoglobin 31.2 25-34 pg Mean Corpuscular Hemoglobin Concent 33.5 32-36 g/dl Platelet Count 255 130-400 K/uL Mean Platelet Volume 9.7 7.4-10.4 fL Neutrophils (%) (Auto) 67.0 % Lymphocytes (%) (Auto) 24.5 % Monocytes (%) (Auto) 6.2 % Eosinophils (%) (Auto) 1.8 % Basophils (%) (Auto) 0.3 % Neutrophils # (Auto) 6.27 1.4-6.5 K/uL Lymphocytes # (Auto) 2.29 1.2-3.4 K/uL Monocytes # (Auto) 0.58 0.11-0.59 K/uL Eosinophils # (Auto) 0.17 0-0.5 K/uL Basophils # (Auto) 0.03 0-0.2 K/uL RDW Standard Deviation 44.7 36.4-46.3 fL RDW Coefficient of Variation 13.2 11.5-14.5 % Immature Granulocyte % (Auto) 0.2 % Immature Granulocyte # (Auto) 0.02 0.00-0.02 K/uL Sodium Level 138 136-145 mmol/L Potassium Level 3.8 3.5-5.1 mmol/L Chloride Level 103 98-107 mmol/L Carbon Dioxide Level 27 21-32 mmol/L Anion Gap 8.0 3-11 mmol/L Blood Urea Nitrogen 18 7-18 mg/dl Creatinine 1.12 0.60-1.20 mg/dl Est Creatinine Clear Calc Drug Dose 51.0 ml/min Estimated GFR () 60.1 Estimated GFR (Non- 51.9 BUN/Creatinine Ratio 15.9 10-20 Random Glucose 118 70-99 mg/dl Calcium Level 8.5 8.5-10.1 mg/dl Total Bilirubin 0.4 0.2-1 mg/dl Direct Bilirubin < 0.1 0-0.2 mg/dl Aspartate Amino Transf (AST/SGOT) 70 15-37 U/L Alanine Aminotransferase (ALT/SGPT) 50 12-78 U/L Alkaline Phosphatase 79 45-117 U/L Total Protein 7.1 6.4-8.2 gm/dl Albumin 3.1 3.4-5.0 gm/dl Lipase 192 73-393 U/L Diagnostic Radiology ABDOMEN AND PELVIS CT WITH IV CONTRAST FINDINGS: The lung bases are clear. Hepatic steatosis. Small diverticulum at the second portion of the duodenum. The spleen, adrenal glands, kidneys, and pancreas enhance normally. The gallbladder is mildly distended, unchanged. Focal thickening within a descending colon diverticulum best seen on image 45 with mild pericolonic fat stranding. Findings are consistent with acute diverticulitis. No perforation or abscess identified at this time. The bladder is unremarkable. Hysterectomy. No evidence for bowel obstruction. No retroperitoneal lymphadenopathy. IMPRESSION: Slight improvement in the diverticulitis of the descending colon. No perforation or abscess. Electronically signed by: Bladimir Beckett M.D. 09/17/2017 6:52 AM Dictated Date/Time: 09/17/2017 6:48 AM . Impression Assessment and Plan ACUTE DIVERTICULITIS Initially diagnosed 09/15 and prescribed oral therapy with ciprofloxacin and metronidazole. Returns to ED with nausea, vomiting, worsening pain. Afebrile. WBC improved. CT improved. Suspect that N/V secondary to metronidazole. Bowl rest. IV fluids. Change antibiotic therapy to ampicillin / sulbactam with transition to oral therapy with amoxicillin / clavulanic acid when GI symptoms improve. VTE PROPHYLAXIS Low-moderate risk. SQ enoxaparin. Ambulate. DISPOSITION Observation status on Med-Surg Unit. Expected discharge to home. Family Medicine follow-up with Dr. Castano. . VTE Prophylaxis Given or contraindicated: Unfractionated heparin SQ
[2017-09-17] MEDS ORDERED: ONDANSETRON INJ 2 MG/ML 2 ML VIAL IV PRN (03:45)
[2017-09-17] MEDS ORDERED: ACETAMINOPHEN IV 100 ML IV PRN (03:45)
--- NOTE | 2017-09-17 03:45 | EMERGENCY ROOM VISIT NOTE ---
History First contact with patient: 00:54 Chief Complaint: VOMITING Stated Complaint: VOMITING;DOC SENT TO ER Nursing Triage Summary: Pt dx with diverticulities, was seen in ED 09/15, put on abx. Pt had emesis about 1/2 hour ago, associated nausea. Also has sharp LLQ abd pain. History of Present Illness The patient is a 62 year old female who presents to the Emergency Room with complaints of nausea, vomiting, left lower quadrant pain for the past few days is diagnosis of diverticulitis 2 days ago placed on antibiotics. Patient states she has been getting progressively more sick tonight with nausea and vomiting and is unable to keep her antibiotics down. Pain currently 5 out of 10. Palpation makes it worse and nothing makes it better. It does not radiate. Patient denies chest pain, dyspnea, fever, chills, back pain, diarrhea. Review of Systems See HPI for pertinent positives & negatives. A total of 10 systems reviewed and were otherwise negative. Past Medical/Surgical History Medical Problems: (1) Contusion of foot (2) Diverticulitis Family History Heart disease Social History Smoking Status: Never Smoker Alcohol Use: none Drug Use: none Marital Status: Housing Status: lives with family Occupation Status: retired Current/Historical Medications Scheduled Ciprofloxacin Hcl (Cipro), 500 MG PO BID Metronidazole (Flagyl), 500 MG PO TID Scheduled PRN Oxycodone Ir (Roxicodone Ir), 5 MG PO Q6H PRN for Pain Physical Exam Vital Signs Date Time Temp Pulse Resp B/P (MAP) Pulse Ox O2 Delivery O2 Flow Rate FiO2 09/17/17 02:44 64 13 94 09/17/17 02:31 114/49 09/17/17 02:29 66 14 94 09/17/17 02:14 69 15 91 09/17/17 02:01 121/55 09/17/17 01:59 67 12 91 09/17/17 01:44 68 12 89 09/17/17 01:39 70 12 94 09/17/17 01:31 124/46 09/17/17 01:24 69 23 94 09/17/17 01:14 130/61 09/17/17 01:09 70 14 94 Room Air 09/17/17 00:58 73 09/17/17 00:48 36.3 75 20 137/62 92 Room Air Physical Exam VITALS: Vitals are noted on the nurse's note and reviewed by myself. Vital signs stable. GENERAL: Pleasant female, in no acute distress, nondiaphoretic, well-developed well-nourished. SKIN: Capillary reflex less than 2 seconds. HEENT: Normocephalic. PERRLA. EOMI. Nares patent. Mucous membranes moist. Neck is supple without nuchal rigidity. HEART: Regular rate and rhythm without murmurs gallops or rubs. LUNGS: Clear to auscultation bilaterally without wheezes, rales or rhonchi. No retractions or accessory muscle use. ABDOMEN: Positive bowel sounds x 4. Normal tympanic percussion. Soft, tender to palpation left lower quadrant, no CVA tenderness, without masses or organomegaly. Segovia sign negative. No guarding or rebound tenderness. MUSCULOSKELETAL: No gross musculoskeletal defects. NEURO: Patient was alert and oriented to person place and time. Normal sensation to light and sharp touch. No focal neurological deficits. Medical Decision & Procedures Laboratory Results 09/17/17 01:05 Red Blood Count 4.17, Mean Corpuscular Volume 93.0, Mean Corpuscular Hemoglobin 31.2, Mean Corpuscular Hemoglobin Concent 33.5, Mean Platelet Volume 9.7, Neutrophils (%) (Auto) 67.0, Lymphocytes (%) (Auto) 24.5, Monocytes (%) (Auto) 6.2, Eosinophils (%) (Auto) 1.8, Basophils (%) (Auto) 0.3, Neutrophils # (Auto) 6.27, Lymphocytes # (Auto) 2.29, Monocytes # (Auto) 0.58, Eosinophils # (Auto) 0.17, Basophils # (Auto) 0.03 09/17/17 01:05 Test 09/17/17 01:05 White Blood Count 9.36 K/uL (4.8-10.8) Red Blood Count 4.17 M/uL (4.2-5.4) Hemoglobin 13.0 g/dL (12.0-16.0) Hematocrit 38.8 % (37-47) Mean Corpuscular Volume 93.0 fL (80-100) Mean Corpuscular Hemoglobin 31.2 pg (25-34) Mean Corpuscular Hemoglobin Concent 33.5 g/dl (32-36) Platelet Count 255 K/uL (130-400) Mean Platelet Volume 9.7 fL (7.4-10.4) Neutrophils (%) (Auto) 67.0 % Lymphocytes (%) (Auto) 24.5 % Monocytes (%) (Auto) 6.2 % Eosinophils (%) (Auto) 1.8 % Basophils (%) (Auto) 0.3 % Neutrophils # (Auto) 6.27 K/uL (1.4-6.5) Lymphocytes # (Auto) 2.29 K/uL (1.2-3.4) Monocytes # (Auto) 0.58 K/uL (0.11-0.59) Eosinophils # (Auto) 0.17 K/uL (0-0.5) Basophils # (Auto) 0.03 K/uL (0-0.2) RDW Standard Deviation 44.7 fL (36.4-46.3) RDW Coefficient of Variation 13.2 % (11.5-14.5) Immature Granulocyte % (Auto) 0.2 % Immature Granulocyte # (Auto) 0.02 K/uL (0.00-0.02) Anion Gap 8.0 mmol/L (3-11) Est Creatinine Clear Calc Drug Dose 51.0 ml/min Estimated GFR () 60.1 Estimated GFR (Non- 51.9 BUN/Creatinine Ratio 15.9 (10-20) Calcium Level 8.5 mg/dl (8.5-10.1) Total Bilirubin 0.4 mg/dl (0.2-1) Direct Bilirubin < 0.1 mg/dl (0-0.2) Aspartate Amino Transf (AST/SGOT) 70 U/L (15-37) Alanine Aminotransferase (ALT/SGPT) 50 U/L (12-78) Alkaline Phosphatase 79 U/L (45-117) Total Protein 7.1 gm/dl (6.4-8.2) Albumin 3.1 gm/dl (3.4-5.0) Lipase 192 U/L (73-393) Medications Administered Medications (Trade) Dose Ordered Sig/Theresa Route Start Time Stop Time Status Last Admin Dose Admin Metronidazole (Flagyl / Nss) 500 mg NOW STAT IV 09/17/17 01:01 09/17/17 01:03 DC 09/17/17 01:23 500 MG Ciprofloxacin/ Dextrose (Cipro / D5W) 400 mg NOW STAT IV 09/17/17 01:01 09/17/17 01:03 DC 09/17/17 01:52 400 MG Sodium Chloride 500 ml @ 999 mls/hr Q31M STAT IV 09/17/17 01:01 09/17/17 01:31 DC 09/17/17 01:22 999 MLS/HR Morphine Sulfate (MoRPHine SULFATE INJ) 4 mg NOW STAT IV 09/17/17 01:01 09/17/17 01:03 DC 09/17/17 01:23 4 MG Ondansetron HCl (Zofran Inj) 4 mg NOW STAT IV 09/17/17 01:01 09/17/17 01:03 DC 09/17/17 01:22 4 MG Ondansetron HCl (Zofran Inj) 4 mg NOW STAT IV 09/17/17 02:39 09/17/17 02:40 DC 09/17/17 02:39 4 MG ED Course Prior records/ancillary studies reviewed. Triage Nursing notes reviewed. Additional history obtained from family The patient's history was concerning for abdominal pain. Differential diagnosis: Etiologies such as appendicitis, diverticulitis, PUD, biliary pathology, UTI, pancreatitis, obstruction, mesenteric ischemia, aortic pathology, infections, inflammatory bowel disease, renal colic, as well as others were entertained. Physical examination findings: As above. ER treatment provided: Flagyl, Cipro, IV fluids, Zofran. On reassessment the patient felt better. Diagnostics interpreted by me: The labs revealed no leukocytosis. Stable H&H Imaging studies: CT ABD/PELVIS IV CONTRAST ONLY CLINICAL HISTORY: Left lower quadrant abdominal pain COMPARISON STUDY: January 2007 TECHNIQUE: Following the IV administration of 93 mL of Optiray-320, CT scan of the abdomen and pelvis was performed from the lung bases to the proximal femurs. Images are reviewed in the axial, sagittal, and coronal planes. IV contrast was administered without complication. A dose lowering technique was utilized adhering to the principles of ALARA. CT DOSE: 700.20 mGy.cm FINDINGS: Lower chest: There is mild bibasilar dependent atelectasis. Liver: There is hepatic steatosis. No focal masses are visualized. Gallbladder: Unremarkable. Spleen: The spleen is lobulated and mildly enlarged measuring 13.4 cm. Pancreas: Unremarkable. Adrenal glands: Unremarkable. Kidneys: There is symmetric renal cortical enhancement. The kidneys are normal in size without hydronephrosis. Bowel: There are no transition zones indicate bowel obstruction. There is a focal area of colonic wall thickening with infiltration of the pericolonic fat at the mid descending colonic level. The findings are indicative of acute diverticulitis. There is no evidence of acute appendicitis. Peritoneum: There is no intraperitoneal free air or abdominal ascites. Vasculature: There is no evidence of abdominal aortic aneurysm. 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 Adenopathy: None. Pelvic viscera: The uterus appears surgically absent. Skeletal structures: No destructive osseous lesions are seen. IMPRESSION: 1. Acute diverticulitis of the mid descending colon. No evidence of peridiverticular abscess 2. Mild splenomegaly Electronically signed by: Kenan Ji M.D. Consultation: A consultation was placed with the hospitalist, Dr. Julien. The case was discussed and diagnostics were reviewed. The patient was evaluated in the ER for further treatment. Exam and history seem consistent diverticulitis who failed outpatient. Patient has been vomiting and feels more nauseous. She states the pain is about the same. No fevers. Patient was informed to go the ER she starts vomiting with family care doctor. Patient's white count is improved. She does not have acute abdomen on exam. By the evaluation outlined above emergent etiologies such as appendicitis, PUD , biliary pathology, UTI, pancreatitis, obstruction, mesenteric ischemia, aortic pathology, inflammatory bowel disease, renal colic, as well as others were deemed relatively unlikely. The pt informed about the findings as listed above. All questions were answered and pleased with the treatment. Case reviewed with my attending Medical Decision As above Medication Reconcilliation Current Medication List: was personally reviewed by me Blood Pressure Screening Patient's blood pressure: Normal blood pressure Impression Primary Impression: Diverticulitis Departure Information Dispostion Being Evaluated By Hospitalist Condition FAIR Referrals Kenneth Castano III, M.D. (PCP) Patient Instructions My [facility]
[2017-09-17] MEDS ORDERED: OPTIRAY 320 IV PRN (04:30)
[2017-09-17 04:50] VITALS: BP 118/73; PULSE 73; TEMP 36.7; O2SAT 91; Ht 157.5 cm; Wt 84.0 kg
--- NOTE | 2017-09-17 05:25 | NUR ---
D5/LR @150ML/HR STARTED AT THIS TIME PER ORDERS.
[2017-09-17] MEDS ORDERED: IV FLUIDS COMPLETED PRN (05:30)
[2017-09-17] MEDS: D5W AND LACTATED RINGERS 1,000 ML IV SCH ×3 (05:39→20:41)
[2017-09-17] MEDS: AMPICILLIN/SULBACTAM SOD INJ 3,000 MG in SODIUM CHLORIDE 0.9% 100ML 100 ML IV SCH ×4 (06:14→23:56)
--- NOTE | 2017-09-17 06:16 | NUR ---
OBS: abx started at this time, no new needs identified.
[2017-09-17 06:46] LABS: INR 0.9 (0.9-1.1); PTT PATIENT 29.9 SECONDS (21.0-31.0)
[2017-09-17 06:52] LABS: CREATININE 1.08 mg/dl (0.60-1.20); POTASSIUM 4.2 mmol/L (3.5-5.1)
--- NOTE | 2017-09-17 06:53 | DIAGNOSTIC IMAGING REPORT ---
ABDOMEN AND PELVIS CT WITH IV CONTRAST CT DOSE: 734.44 mGy.cm HISTORY: Left lower quadrant abdominal pain. diverticulitis; no oral contrast due to N/V TECHNIQUE: Multiaxial CT images of the abdomen and pelvis were performed following the use of intravenous contrast. A dose lowering technique was utilized adhering to the principles of ALARA. COMPARISON STUDY: Abdomen and pelvis CT 09/15/2017. FINDINGS: The lung bases are clear. Hepatic steatosis. Small diverticulum at the second portion of the duodenum. The spleen, adrenal glands, kidneys, and pancreas enhance normally. The gallbladder is mildly distended, unchanged. Focal thickening within a descending colon diverticulum best seen on image 45 with mild pericolonic fat stranding. Findings are consistent with acute diverticulitis. No perforation or abscess identified at this time. The bladder is unremarkable. Hysterectomy. No evidence for bowel obstruction. No retroperitoneal lymphadenopathy. IMPRESSION: Slight improvement in the diverticulitis of the descending colon. No perforation or abscess. Electronically signed by: Bladimir Beckett M.D. 09/17/2017 6:52 AM Dictated Date/Time: 09/17/2017 6:48 AM
[2017-09-17 07:34] VITALS: BP 118/57; PULSE 62; TEMP 36.7; O2SAT 92
[2017-09-17 07:45] VITALS: O2SAT 92
[2017-09-17] MEDS: ENOXAPARIN 40 MG/0.4 ML SYR SQ SCH (08:51)
--- NOTE | 2017-09-17 09:33 | NUR ---
OBS & The patient has demonstrated progress toward goals and readiness for discharge as demonstrated by:A/O x4. Lungs clear on RA. Triflow 1749. IVF infusing into Left wrist intact and patent. Hyper bowel sounds x4 quadrants, denies flatus. C/O tenderness in the LLQ, abd slightly distended but states it is much better then what it was yesterday. C/O nausea, refusing zofran at this time states that she just thinks she needs sleep. + radial/+pedal pulses. OOB with min assist to void in the BR, voiding an phoebe colored urine. Denies any N/T. No edema noted. Decreased appetite noted only bites of breakfast. Denies pain. Will cont to monitor. Discharge uncertain at this time
--- NOTE | 2017-09-17 10:24 | Progress Note ---
Subjective Date of Service: Sep 17, 2017. Subjective Pt evaluation today including: conversation w/ patient, physical exam, lab review, review of studies, review of inpatient medication list Saw/examined the patient in room 382 still feels nauseous with breakfast - she tried some jello and clear liquids Denies abdominal pain; no fevers/chills Problem List Medical Problems: (1) Diverticulitis Status: Chronic Review of Systems Constitutional: No fever, No chills Respiratory: No shortness of breath Cardiac: No chest pain Abdomen: + nausea, + vomiting, No pain, No diarrhea, No constipation, No GI bleeding Heme: No abnormal bleeding/bruising Medications Current Inpatient Medications Medications (Trade) Dose Ordered Sig/Theresa Route Start Time Stop Time Status Last Admin Dose Admin Enoxaparin Sodium (Lovenox Inj) 40 mg DAILY SQ 09/17/17 09:00 10/17/17 08:59 Ondansetron HCl (Zofran Inj) 4 mg Q6H PRN IV 09/17/17 03:45 10/17/17 03:44 Dextrose/Lactated Ringer's 1,000 ml @ 150 mls/hr Q6H40M IV 09/17/17 05:45 10/17/17 05:44 09/17/17 05:39 150 MLS/HR Acetaminophen 100 ml @ 400 mls/hr Q8H PRN IV 09/17/17 03:45 10/17/17 03:44 Ampicillin Sodium/ Sulbactam Sodium 3000 mg/Sodium Chloride 108 ml @ 200 mls/hr Q6H IV 09/17/17 06:00 09/27/17 05:59 09/17/17 06:14 200 MLS/HR Ioversol (Optiray 320) 100 ml UD PRN IV 09/17/17 04:30 09/21/17 04:29 Miscellaneous (Iv Fluids Completed) 1 ea PRN PRN N/A 09/17/17 05:30 09/17/18 05:29 Objective Vital Signs Date Time Temp Pulse Resp B/P (MAP) Pulse Ox O2 Delivery O2 Flow Rate FiO2 09/17/17 07:45 92 Room Air 09/17/17 07:34 36.7 62 16 118/57 (77) 92 Room Air 09/17/17 04:50 36.7 73 18 118/73 91 Room Air 09/17/17 04:24 67 13 89 09/17/17 04:09 68 12 96 09/17/17 04:01 140/70 09/17/17 03:54 70 19 97 09/17/17 03:39 69 13 94 09/17/17 03:34 68 14 93 09/17/17 03:31 129/65 09/17/17 03:19 69 15 93 09/17/17 03:04 69 13 94 09/17/17 03:01 121/61 09/17/17 02:49 67 15 96 09/17/17 02:44 64 13 94 09/17/17 02:31 114/49 09/17/17 02:29 66 14 94 09/17/17 02:14 69 15 91 09/17/17 02:01 121/55 09/17/17 01:59 67 12 91 09/17/17 01:44 68 12 89 09/17/17 01:39 70 12 94 09/17/17 01:31 124/46 09/17/17 01:24 69 23 94 09/17/17 01:14 130/61 09/17/17 01:09 70 14 94 Room Air 09/17/17 00:58 73 09/17/17 00:48 36.3 75 20 137/62 92 Room Air Physical Exam General Appearance: no apparent distress Respiratory/Chest: no respiratory distress, no accessory muscle use Cardiovascular: regular rate, rhythm Abdomen: normal bowel sounds, non tender, soft, no organomegaly Extremities: normal inspection, no pedal edema Laboratory Results Last 24 Hours Test 09/17/17 01:05 09/17/17 06:01 White Blood Count 9.36 K/uL Red Blood Count 4.17 M/uL Hemoglobin 13.0 g/dL Hematocrit 38.8 % Mean Corpuscular Volume 93.0 fL Mean Corpuscular Hemoglobin 31.2 pg Mean Corpuscular Hemoglobin Concent 33.5 g/dl Platelet Count 255 K/uL Mean Platelet Volume 9.7 fL Neutrophils (%) (Auto) 67.0 % Lymphocytes (%) (Auto) 24.5 % Monocytes (%) (Auto) 6.2 % Eosinophils (%) (Auto) 1.8 % Basophils (%) (Auto) 0.3 % Neutrophils # (Auto) 6.27 K/uL Lymphocytes # (Auto) 2.29 K/uL Monocytes # (Auto) 0.58 K/uL Eosinophils # (Auto) 0.17 K/uL Basophils # (Auto) 0.03 K/uL RDW Standard Deviation 44.7 fL RDW Coefficient of Variation 13.2 % Immature Granulocyte % (Auto) 0.2 % Immature Granulocyte # (Auto) 0.02 K/uL Prothrombin Time 9.6 SECONDS Prothromb Time International Ratio 0.9 Activated Partial Thromboplast Time 29.9 SECONDS Partial Thromboplastin Ratio 1.2 Sodium Level 138 mmol/L 135 mmol/L Potassium Level 3.8 mmol/L 4.2 mmol/L Chloride Level 103 mmol/L 102 mmol/L Carbon Dioxide Level 27 mmol/L 27 mmol/L Anion Gap 8.0 mmol/L 6.0 mmol/L Blood Urea Nitrogen 18 mg/dl 16 mg/dl Creatinine 1.12 mg/dl 1.08 mg/dl Est Creatinine Clear Calc Drug Dose 51.0 ml/min 52.9 ml/min Estimated GFR () 60.1 62.8 Estimated GFR (Non- 51.9 54.2 BUN/Creatinine Ratio 15.9 14.8 Random Glucose 118 mg/dl 154 mg/dl Calcium Level 8.5 mg/dl 8.0 mg/dl Total Bilirubin 0.4 mg/dl Direct Bilirubin < 0.1 mg/dl Aspartate Amino Transf (AST/SGOT) 70 U/L Alanine Aminotransferase (ALT/SGPT) 50 U/L Alkaline Phosphatase 79 U/L Total Protein 7.1 gm/dl Albumin 3.1 gm/dl Lipase 192 U/L Assessment and Plan This is a 62 year old female with a PMH of diverticulosis and a Shatzki's ring - presented to the ER on 09/15 with acute diverticulitis - returns with nausea/ vomiting/decreased PO intake Acute Diverticulitis clinically appears improved still has nausea abdominal pain improved no fevers/chills, WBC normalized for now, we can continue clears, IVFs and Unasyn monitor overnight and d/c on Augmentin when she has improved PO intake DVT ppx Lovenox FULL CODE
--- NOTE | 2017-09-17 12:00 | NUR ---
OBS NOTE: Resting in bed at this time with eyes open watching TV. Assessment remains unchanged. IVF infusing into left wrist intact and patent. Tolerating a clear liquid diet. Denies any nausea or pain at this time. OOB with min assist to void in the BR. Will cont to monitor. Discharge uncertain at this time.
[2017-09-17 15:26] VITALS: BP 110/72; PULSE 65; TEMP 36.8; O2SAT 95
--- NOTE | 2017-09-17 16:00 | NUR ---
OBS: A&Ox4, clear on room air, denies pain at this time. IV fluids infusing per order. Pulses palpable, no edema observed. BSx4 quadrants, denies gas, reports a lack of appetite. Voiding in the toilet adequately. OOB x1 assist. Call dong within reach, hourly rounding maintained.
[2017-09-17] MEDS ORDERED: NURSING VERBAL MED ORDER ONE (19:00)
[2017-09-17] MEDS ORDERED: POLYETHYLENE (MIRALAX) 17 GM PACK PO SCH (19:15)
--- NOTE | 2017-09-17 20:00 | NUR ---
OBS: A&Ox4, clear on room air, denies pain at this time. IV fluids infusing per order. Pulses palpable, no edema observed. BSx4 quadrants, passing gas, reports a lack of appetite. She reported not having a BM in a few days. I gave her a dose of Miralax, and relayed that she may not be passing stool if she is not eating any of her meals. Voiding in the toilet adequately. OOB x1 assist. Call dong within reach, hourly rounding maintained.
[2017-09-17 23:14] VITALS: BP 118/49; PULSE 64; TEMP 37; O2SAT 93
--- NOTE | 2017-09-18 00:46 | NUR ---
obs: assessment performed; denies any pain or nausea, iv fluids infusing. no new needs identified.
[2017-09-18] MEDS: D5W AND LACTATED RINGERS 1,000 ML IV SCH ×4 (02:01→21:38)
[2017-09-18 05:41] LABS: HEMATOCRIT 36.7 % (37-47); MEAN CELL VOLUME 95.1 fL (80-100); MEAN CORPUSCULAR HEMOGLOBIN 31.1 pg (25-34); MEAN CORPUSCULAR HGB CONC 32.7 g/dl (32-36); MEAN PLATELET VOLUME 9.6 fL (7.4-10.4); PLATELET COUNT 205 K/uL (130-400); RED CELL DISTRIBUTION WIDTH CV 13.3 % (11.5-14.5); WHITE BLOOD COUNT 6.27 K/uL (4.8-10.8)
[2017-09-18] MEDS: AMPICILLIN/SULBACTAM SOD INJ 3,000 MG in SODIUM CHLORIDE 0.9% 100ML 100 ML IV SCH ×4 (05:53→23:15)
[2017-09-18 06:19] LABS: CALCIUM 8.1 mg/dl (8.5-10.1); CREATININE 1.12 mg/dl (0.60-1.20); POTASSIUM 3.8 mmol/L (3.5-5.1)
--- NOTE | 2017-09-18 06:21 | NUR ---
obs: pain well controlled, no new needs identified.
[2017-09-18 07:09] VITALS: BP 121/73; PULSE 61; TEMP 36.8; O2SAT 96
--- NOTE | 2017-09-18 08:00 | NUR ---
OBS/ID: Pt was admitted for diverticulitis. Pt is alert and oriented x 4. Roomair and tolerating well. Tolerating clear liquid breakfast without any difficulty or nausea. OOB independently. IV fluids as per ordered. No d/c plans at present time. WIll monitor.
[2017-09-18] MEDS: ENOXAPARIN 40 MG/0.4 ML SYR SQ SCH (08:47)
--- NOTE | 2017-09-18 09:34 | Progress Note ---
Subjective Date of Service: Sep 18, 2017. Subjective Pt evaluation today including: conversation w/ patient, physical exam, lab review, review of studies, review of inpatient medication list Saw/examined the patient in room 382 Nausea improving Abdominal pain improving Problem List Medical Problems: (1) Diverticulitis Status: Acute Review of Systems Constitutional: No fever, No chills Respiratory: No shortness of breath Cardiac: No chest pain Abdomen: + nausea, + constipation, No pain, No vomiting, No diarrhea, No GI bleeding Medications Current Inpatient Medications Medications (Trade) Dose Ordered Sig/Theresa Route Start Time Stop Time Status Last Admin Dose Admin Enoxaparin Sodium (Lovenox Inj) 40 mg DAILY SQ 09/17/17 09:00 10/17/17 08:59 Ondansetron HCl (Zofran Inj) 4 mg Q6H PRN IV 09/17/17 03:45 10/17/17 03:44 Dextrose/Lactated Ringer's 1,000 ml @ 150 mls/hr Q6H40M IV 09/17/17 05:45 10/17/17 05:44 09/18/17 08:46 150 MLS/HR Acetaminophen 100 ml @ 400 mls/hr Q8H PRN IV 09/17/17 03:45 10/17/17 03:44 Ampicillin Sodium/ Sulbactam Sodium 3000 mg/Sodium Chloride 108 ml @ 200 mls/hr Q6H IV 09/17/17 06:00 09/27/17 05:59 09/18/17 05:53 200 MLS/HR Ioversol (Optiray 320) 100 ml UD PRN IV 09/17/17 04:30 09/21/17 04:29 Miscellaneous (Iv Fluids Completed) 1 ea PRN PRN N/A 09/17/17 05:30 09/17/18 05:29 Objective Vital Signs Date Time Temp Pulse Resp B/P (MAP) Pulse Ox O2 Delivery O2 Flow Rate FiO2 09/18/17 08:00 Room Air 09/18/17 07:09 36.8 61 16 121/73 (89) 96 Room Air 09/17/17 23:50 Room Air 09/17/17 23:14 37.0 64 16 118/49 (72) 93 Room Air 09/17/17 15:35 Room Air 09/17/17 15:26 36.8 65 18 110/72 (85) 95 Room Air Physical Exam General Appearance: no apparent distress Respiratory/Chest: no respiratory distress, no accessory muscle use Abdomen: normal bowel sounds, non tender, soft Laboratory Results Last 24 Hours Test 09/17/17 10:30 09/18/17 05:24 Urine Color YELLOW Urine Appearance CLEAR Urine pH 7.5 Urine Specific Conner 1.032 Urine Protein NEG Urine Glucose (UA) NEG Urine Ketones NEG Urine Occult Blood NEG Urine Nitrite NEG Urine Bilirubin NEG Urine Urobilinogen NEG Urine Leukocyte Esterase NEG White Blood Count 6.27 K/uL Red Blood Count 3.86 M/uL Hemoglobin 12.0 g/dL Hematocrit 36.7 % Mean Corpuscular Volume 95.1 fL Mean Corpuscular Hemoglobin 31.1 pg Mean Corpuscular Hemoglobin Concent 32.7 g/dl RDW Standard Deviation 46.0 fL RDW Coefficient of Variation 13.3 % Platelet Count 205 K/uL Mean Platelet Volume 9.6 fL Sodium Level 141 mmol/L Potassium Level 3.8 mmol/L Chloride Level 106 mmol/L Carbon Dioxide Level 31 mmol/L Anion Gap 4.0 mmol/L Blood Urea Nitrogen 7 mg/dl Creatinine 1.12 mg/dl Est Creatinine Clear Calc Drug Dose 51.0 ml/min Estimated GFR () 60.1 Estimated GFR (Non- 51.9 BUN/Creatinine Ratio 6.3 Random Glucose 133 mg/dl Calcium Level 8.1 mg/dl Magnesium Level 2.1 mg/dl Assessment and Plan This is a 62 year old female with a PMH of diverticulosis and a Shatzki's ring - presented to the ER on 09/15 with acute diverticulitis - returns with nausea/ vomiting/decreased PO intake Acute Diverticulitis 09/18 she tolerated some of her clears last evening nausea improving, but still present will advance diet slowly as tolerated continue IVFs and Unasyn Zofran PRN 09/17 clinically appears improved still has nausea abdominal pain improved no fevers/chills, WBC normalized for now, we can continue clears, IVFs and Unasyn monitor overnight and d/c on Augmentin when she has improved PO intake DVT ppx Lovenox FULL CODE
--- NOTE | 2017-09-18 12:00 | NUR ---
OBS: Pt resting in bed. Increased diet for lunch - regular tray. Denies pain or nausea. Independent in the room. No d/c date at present time.
--- NOTE | 2017-09-18 12:48 | NUR ---
RD screened pt for diagnosis of diverticulitis. Contacted pt to review Low Fiber MNT for 2-3 weeks following discharge and then High Fiber long-term following Low Fiber diet. Also provided pt with a list of the fiber content of foods. She denied any further questions at this time, provided contact information for additional questions.
[2017-09-18 14:58] VITALS: BP 132/68; PULSE 73; TEMP 36.7; O2SAT 95
--- NOTE | 2017-09-18 16:00 | NUR ---
OBS note: Pt alert and oriented x4. OOB independently. Voiding in the bathroom without difficulty. Loose stool. IVF infusing as per MD order. No nausea. Tolerating a regular diet. Denies pain. Pt will continue to be monitored and assessed this shift.
--- NOTE | 2017-09-18 20:00 | NUR ---
OBS note: Pt alert and oriented x4. OOB independently. Voiding in the bathroom without difficulty.IVF infusing as per MD order, Intermittent IV antibiotics . No nausea. Tolerated a regular diet for dinner. Denies pain. Pt will continue to be monitored and assessed throughout the shift. Possible discharge to home tomorrow.
[2017-09-18 23:30] VITALS: BP 119/70; PULSE 55; TEMP 36.7; O2SAT 96
--- NOTE | 2017-09-19 00:03 | NUR ---
OBS Note: patient resting in bed. alert and oriented x4. no complaints of pain at this time. IVF infusing as ordered. lungs clear on RA, denies cough, shortness of breath or chest pain. positive bowel sounds, passing flatus, denies nausea/vomiting. tolerating regular diet. pulses palpable, denies numbness/tingling. oob with min assist to void. discharge home. call dong in reach. will continue to monitor.
--- NOTE | 2017-09-19 03:50 | NUR ---
OBS Note: patient resting in bed. assessment unchanged. call dong in reach. will continue to monitor.
[2017-09-19] MEDS: D5W AND LACTATED RINGERS 1,000 ML IV SCH (04:09)
[2017-09-19] MEDS: AMPICILLIN/SULBACTAM SOD INJ 3,000 MG in SODIUM CHLORIDE 0.9% 100ML 100 ML IV SCH (05:32)
[2017-09-19 06:43] LABS: CREATININE 1.11 mg/dl (0.60-1.20); POTASSIUM 3.8 mmol/L (3.5-5.1)
[2017-09-19 07:46] VITALS: BP 96/57; PULSE 57; TEMP 36.5; O2SAT 96
[2017-09-19] MEDS: ENOXAPARIN 40 MG/0.4 ML SYR SQ SCH (08:07)
--- NOTE | 2017-09-19 08:46 | Progress Note ---
Subjective Date of Service: Sep 19, 2017. Subjective Pt evaluation today including: conversation w/ patient, physical exam, lab review, review of studies, review of inpatient medication list Saw/examined the patient in room 382 She's doing well, tolerating a regular diet now No nausea/vomiting, no abdominal pain, denies fevers/chills Problem List Medical Problems: (1) Diverticulitis Status: Acute Review of Systems Constitutional: No fever, No chills Abdomen: No pain, No nausea, No vomiting, No diarrhea, No constipation, No GI bleeding Medications Current Inpatient Medications Medications (Trade) Dose Ordered Sig/Theresa Route Start Time Stop Time Status Last Admin Dose Admin Enoxaparin Sodium (Lovenox Inj) 40 mg DAILY SQ 09/17/17 09:00 10/17/17 08:59 Ondansetron HCl (Zofran Inj) 4 mg Q6H PRN IV 09/17/17 03:45 10/17/17 03:44 Dextrose/Lactated Ringer's 1,000 ml @ 150 mls/hr Q6H40M IV 09/17/17 05:45 10/17/17 05:44 09/19/17 04:09 150 MLS/HR Acetaminophen 100 ml @ 400 mls/hr Q8H PRN IV 09/17/17 03:45 10/17/17 03:44 Ampicillin Sodium/ Sulbactam Sodium 3000 mg/Sodium Chloride 108 ml @ 200 mls/hr Q6H IV 09/17/17 06:00 09/27/17 05:59 09/19/17 05:32 200 MLS/HR Ioversol (Optiray 320) 100 ml UD PRN IV 09/17/17 04:30 09/21/17 04:29 Miscellaneous (Iv Fluids Completed) 1 ea PRN PRN N/A 09/17/17 05:30 09/17/18 05:29 Objective Vital Signs Date Time Temp Pulse Resp B/P (MAP) Pulse Ox O2 Delivery O2 Flow Rate FiO2 09/19/17 07:46 36.5 57 19 96/57 (70) 96 Room Air 09/19/17 07:15 Room Air 09/18/17 23:30 36.7 55 16 119/70 (86) 96 Room Air 09/18/17 23:15 Room Air 09/18/17 16:07 Room Air 09/18/17 14:58 36.7 73 16 132/68 (89) 95 Room Air Physical Exam General Appearance: no apparent distress Abdomen: normal bowel sounds, non tender, soft Laboratory Results Last 24 Hours Test 09/19/17 05:40 Sodium Level 140 mmol/L Potassium Level 3.8 mmol/L Chloride Level 107 mmol/L Carbon Dioxide Level 28 mmol/L Anion Gap 5.0 mmol/L Blood Urea Nitrogen 9 mg/dl Creatinine 1.11 mg/dl Est Creatinine Clear Calc Drug Dose 51.5 ml/min Estimated GFR () 60.8 Estimated GFR (Non- 52.4 BUN/Creatinine Ratio 8.1 Random Glucose 125 mg/dl Calcium Level 8.0 mg/dl Assessment and Plan This is a 62 year old female with a PMH of diverticulosis and a Shatzki's ring - presented to the ER on 09/15 with acute diverticulitis - returns with nausea/ vomiting/decreased PO intake Acute Diverticulitis 09/19 doing well, tolerating regular diet will d/c today with Augmentin to total 10 days outpatient PCP f/u September 20 at 10:45AM with Dr. Castano 09/18 she tolerated some of her clears last evening nausea improving, but still present will advance diet slowly as tolerated continue IVFs and Unasyn Zofran PRN 09/17 clinically appears improved still has nausea abdominal pain improved no fevers/chills, WBC normalized for now, we can continue clears, IVFs and Unasyn monitor overnight and d/c on Augmentin when she has improved PO intake DVT ppx Lovenox FULL CODE
[2017-09-19] MEDS ORDERED: AMOX875T PO (08:47)
--- NOTE | 2017-09-19 08:50 | Discharge Instructions ---
Discharge Instructions Date of Service Sep 19, 2017. Admission Reason for Admission: Diverticulitis Discharge Discharge Diagnosis / Problem: Acute Diverticulitis, Nausea/vomiting Discharge Goals Goal(s): Decrease discomfort, Improve function, Diagnostic testing, Therapeutic intervention Activity Recommendations Activity Limitations: resume your previous activity . Instructions / Follow-Up Instructions / Follow-Up Please follow-up with Dr. Castano on September 20 at 10:45AM * Stop taking Cipro and Flagyl - you will now be started on Augmentin ( antibiotic) twice a day for 7 days Current Hospital Diet Patient's current hospital diet: Regular Diet Discharge Diet Recommended Diet: Low Fiber Diet Pending Studies Studies pending at discharge: no Medical Emergencies . Who to Call and When: Medical Emergencies: If at any time you feel your situation is an emergency, please call 911 immediately. . Non-Emergent Contact Non-Emergency issues call your: Primary Care Provider . . "Provider Documentation" section prepared by Rachelle Valdes. . VTE Core Measure Inpt VTE Proph given/why not?: Unfractionated heparin SQ
--- NOTE | 2017-09-19 08:52 | Discharge Summary ---
Discharge Summary Date of Service Sep 19, 2017. Discharge Summary Admission Date: Sep 17, 2017 at 03:41 Discharge Date: Sep 19, 2017 Discharge Disposition: Home Principal Diagnosis: Acute Descending Colon Diverticulitis Medication Reconciliation New Medications: Amoxicillin & Pot Clavulanate (Augmentin 875-125 mg) 1 Tab Tab 1 TAB PO BID for 7 Days, #14 TAB Continued Medications: Oxycodone Ir (Roxicodone Ir) 5 Mg Tab 5 MG PO Q6H PRN for Pain, TAB Discontinued Medications: Ciprofloxacin Hcl (Cipro) 500 Mg Tab 500 MG PO BID for 10 Days, #20 TAB BEGIN 09/15/17 X 10 DAYS. Metronidazole (Flagyl) 500 Mg Tab 500 MG PO TID for 3 Days, #10 TAB BEGIN 09/15/17 X 3 DAYS Admission Information HPI (per Admitting provider): 62 YO female followed by Dr. Castano. Enjoys relatively good health except for few problems as noted below. History of diverticulosis demonstrated on colonoscopy in 2012. Presented to ED 09/15/[address] demonstrated acute diverticulitis of the mid descending colon. Discharged to home on oral ciprofloxacin and metronidazole. Returned to ED tonight with nausea and vomiting. No hematemesis. Abdominal pain somewhat worse, now involving low mid abdomen as well as left- side. Rates pain as moderately severe. No fever. No diarrhea or hematochezia. Feels bloated. . Physical Exam (per Admitting): General Appearance: + mild distress Head: normocephalic, atraumatic Eyes: normal inspection, PERRL, EOMI, sclerae normal ENT: hearing grossly normal, pharynx normal Neck: supple, no adenopathy, thyroid normal, no JVD, trachea midline Respiratory/Chest: lungs clear Cardiovascular: regular rate, rhythm, no edema, no gallop, no JVD, no murmur Abdomen/GI: + pertinent finding (quiet bowel sounds, moderately distended, soft, moderate left-sided and suprapubic tenderness without rebound or guarding ; no palpable masses) Extremities/Musculoskelatal: normal inspection, no calf tenderness, normal capillary refill, no pedal edema 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 Castano 09/18 she tolerated some of her clears last evening nausea improving, but still present will advance diet slowly as tolerated continue IVFs and Unasyn Zofran PRN 09/17 clinically appears improved still has nausea abdominal pain improved no fevers/chills, WBC normalized for now, we can continue clears, IVFs and Unasyn monitor overnight and d/c on Augmentin when she has improved PO intake DVT ppx Lovenox FULL CODE Total time spent on discharge = 20 minutes This includes examination of the patient, discharge planning, medication reconciliation, and communication with other providers. Discharge Instructions Please follow-up with Dr. Castano on September 20 at 10:45AM * Stop taking Cipro and Flagyl - you will now be started on Augmentin ( antibiotic) twice a day for 7 days
[2017-09-19 08:57] VITALS: BP 96/57; PULSE 57; TEMP 36.5; O2SAT 96
== END 2017-09-19 10:06 | disposition home or self-care (01) ==
LOC: C.EDB 00:41 → C.MSN 03:41 → ENRESERV 04:28
PROVIDERS: ADMIT Hospitalist; ATTEND Family Medicine
DX: K57.32 Diverticulitis of large intestine without perforation or abscess without bleeding (principal); K22.2 Esophageal obstruction; Z90.710 Acquired absence of both cervix and uterus; Z82.49 Family history of ischemic heart disease and other diseases of the circulatory system; Z83.3 Family history of diabetes mellitus

== ENCOUNTER 2018-12-04 07:30 | Inpatient (IN) ==
[2018-12-04] MEDS ORDERED: KETOROLAC TROMETHAMINE 15 MG/ML VIAL IV STA (07:47)
[2018-12-04] MEDS ORDERED: ONDANSETRON INJ 2 MG/ML 2 ML VIAL IV STA (07:49)
[2018-12-04] MEDS ORDERED: SODIUM CHLORIDE 0.9% 500 ML IV SCH (08:00)
--- NOTE | 2018-12-04 08:09 | Emergency Department Note ---
Entered by Chaya Levy acting as a scribe for Abel Grijalva DO History of Present Illness General Chief complaint: Abdominal Pain Stated complaint: SICK TO THE STOMACH AND PAIN Time Seen by Provider: 12/04/18 07:42 Source: patient History of Present Illness Provider complaint: abdominal pain Onset (ago): day(s) (last night) Location: abdomen (mid) Severity: similar to prior episodes Pain Consistency: + constant Quality: + sharp Associated symptoms: + other (shivering, headache, lightheadedness, nausea) The patient is a 63 year old female who presents to the Emergency Room with complaints of constant abdominal pain beginning last night. She describes her pain as sharp and notes it is mostly in the mid-abdominal area. The patient states she has been shivering and has a headache. She reports lightheadedness and nausea. The patient notes she had similar pain in the left side of her abdomen in the past, when she had diverticulitis. Home Medications Home Medications Medication Instructions Recorded Confirmed Type No Known Home Medications 08/21/18 12/04/18 History Allergies Allergy/AdvReac Type Severity Reaction Status Date / Time bee venom protein (honey bee) Allergy Mild ANAPHLYAXIS Verified 12/04/18 09:13 peppermint Allergy Unknown Unknown Verified 12/04/18 09:13 Past Med/Surg History Medical History Diverticulitis (Resolved) Diverticulosis of colon (Chronic) Iron disorder (Chronic) "elevated Fe & ferritin; genetic testing for hemochromatosis negative " Psoriasis (Chronic) Surgical History Status post hysterectomy (Resolved) Status post tonsillectomy (Resolved) Family History Father Alzheimer disease Mother Diabetes mellitus, type 2 Other Family history non-contributory Social History Preferred Language: Occitan Beliefs That Will Affect Care: None marital status: / Current Living Situation: Family Current Living Situation Comment: Lives with step son Feels Safe at Home: Yes Smoking Status: Never smoker Hx Alcohol Use: No Hx Substance Use: No Review of Systems See HPI for pertinent positives & negatives. and A total of 10 systems reviewed and were otherwise negative Physical Exam Vital Signs Vital Signs - 24 hr 12/04/18 07:36 12/04/18 09:27 Temperature 37.6 C H Temperature Source Oral Sepsis Recent Fever Within 48 Hours No Sepsis Action Taken by Nursing No Action Required Pulse Rate 103 H Pulse Rate [Finger] 88 Pulse Rhythm [Finger] Regular Pulse Strength [Finger] Normal Respiratory Rate 20 16 Respiratory Effort / Characteristics Non-Labored Spontaneous Non-Labored Spontaneous Respiratory Depth Normal Normal Respiratory Pattern Regular Blood Pressure 102/66 Blood Pressure [Left Arm] 119/54 L Blood Pressure Mean 78 Blood Pressure Mean [Left Arm] 75 Blood Pressure Position Sitting Blood Pressure Position [Left Arm] Lying Pulse Oximetry 98 Oxygen Delivery Method Room Air Room Air CONSTITUTIONAL/VITAL SIGNS: Reviewed / noted above. GENERAL: Non-toxic in appearance. INTEGUMENTARY: Warm, dry, and [place]. HEAD: Normocephalic. EYES: without scleral icterus or trauma. ENT/OROPHARYNX: clear and moist. LYMPHADENOPATHY/NECK: Is supple without lymphadenopathy or meningismus. RESPIRATORY: Lungs clear and equal. CARDIOVASCULAR: Regular rate and rhythm. GI/ABDOMEN: Soft. Diffuse tenderness of lower abdomen. No organomegaly or pulsatile mass. No rebound or guarding. Normal bowel sounds. EXTREMITIES: Warm and well perfused. BACK: No CVA tenderness. NEUROLOGICAL: Intact without focal deficits. PSYCHIATRIC: normal affect. MUSCULOSKELETAL: Normally developed with good muscle tone. Course 0743: Past medical records reviewed. The patient was evaluated in room C3, and a complete history and physical examination were performed. 0956: Upon reevaluation, the patient is resting. I discussed test results. They verbalized agreement with the treatment plan. 0958: Discussed the case with Dr. Broussard, general surgery. He does not rec ommend surgical intervention at this time. 1009: I reviewed the patient's case with L[facility] Woodson [facility]-C[facility] She will evaluate the patient for further management. Consultations Consultation #1: Dr. Broussard, general surgery Time: 09:58 Consultation #2: L[facility] Wood[facility]-C, [facility] Time: 10:09 Administered Medications Piperacillin Sod/Tazobactam Sod (Zosyn) 4.5 gm in 120 mls @ 240 mls/hr IV NOW ONE Stop: 12/04/18 10:16 Last Admin: 12/04/18 10:03 Dose: 240 mls/hr Documented by: [id number] Ioversol (Optiray 320 100ml) 94 ml IV ONCE PRN PRN Reason: Interaction Checking Stop: 12/08/18 08:45 Last Admin: 12/04/18 08:46 Dose: 94 ml Documented by: [id number] Discontinued Medications Sodium Chloride (Nss) 500 mls @ 999 mls/hr IV .Q31M PAT Stop: 12/04/18 08:30 Last Infusion: 12/04/18 08:32 Dose: 0 mls/hr Documented by: [id number] Admin: 12/04/18 08:01 Dose: 999 mls/hr Documented by: [id number] Ketorolac Tromethamine (Toradol) 15 mg IV NOW STA Stop: 12/04/18 07:48 Last Admin: 12/04/18 08:01 Dose: 15 mg Documented by: [id number] Ondansetron HCl (Zofran) 4 mg IV NOW STA Stop: 12/04/18 07:50 Last Admin: 12/04/18 08:01 Dose: 4 mg Documented by: [id number] Medical Decision Making Differential Diagnosis Differential considered: pancreatitis, hepatitis, or acute cholecystitis, AAA, UTI, pyelonephritis, kidney stones, appendicitis, diverticulitis, shingles, bowel obstruction mesenteric ischemia, intussusception,hernia, ovarian torsion, ruptured ovarian cyst, ectopic , . Medical Records Attestation: I reviewed the patient's medical records. Home Medications Current Medication List: was personally reviewed by me Laboratory Data Attestation: I reviewed the patient's lab results. Result diagrams: 12/04/18 08:00 12/04/18 08:00 Lab Results 12/04/18 12/04/18 12/04/18 Range/Units 08:00 08:00 09:30 WBC 18.34 H (4.8-10.8) K/uL RBC 4.52 (4.2-5.4) M/uL Hgb 13.7 (12.0-16.0) g/dL Hct 40.8 (37-47) % MCV 90.3 (80-100) fL MCH 30.3 (25-34) pg MCHC 33.6 (32-36) g/dL RDW Std Deviation 46.0 (36.4-46.3) fL RDW Coeff of Destiny 13.9 (11.5-14.5) % Plt Count 237 (130-400) K/uL MPV 10.2 (7.4-10.4) fL Immature Gran % (Auto) 0.3 % Neut % (Auto) 85.7 % Lymph % (Auto) 6.9 % [place] % (Auto) 6.8 % Eos % (Auto) 0.2 % Baso % (Auto) 0.1 % Immature Gran # (Auto) 0.05 H (0.00-0.02) K/uL Neut # (Auto) 15.73 H (1.4-6.5) K/uL Lymph # (Auto) 1.27 (1.2-3.4) K/uL [place] # (Auto) 1.24 H (0.11-0.59) K/uL Eos # (Auto) 0.04 (0-0.5) K/uL Baso # (Auto) 0.01 (0-0.2) K/uL Sodium 138 (136-145) mmol/L Potassium 3.7 (3.5-5.1) mmol/L Chloride 104 (98-107) mmol/L Carbon Dioxide 25 (21-32) mmol/L Anion Gap 9.0 (3-11) BUN 14 (7-18) mg/dl Creatinine 1.03 (0.6-1.2) mg/dl Est Cr Clr Drug Dosing 55.7 ml/min Est GFR ( Amer) 66.1 Est GFR (Non-Af Amer) 57.0 BUN/Creatinine Ratio 13.5 (10-20) Glucose 147 H (70-99) mg/dl Calcium 8.7 (8.5-10.1) mg/dl Total Bilirubin 0.7 (0.2-1) mg/dl AST 22 (15-37) U/L ALT 25 (12-78) U/L Alkaline Phosphatase 85 (45-117) U/L Total Protein 7.4 (6.4-8.2) gm/dl Albumin 3.3 L (3.4-5.0) gm/dl Globulin 4.1 H (2.5-4.0) gm/dl Albumin/Globulin Ratio 0.8 L (0.9-2) Lipase 126 (73-393) U/L Specimen Hemolysis Urine Color Yellow Urine Appearance Clear (Clear) Urine pH 5.5 (4.5-7.5) Ur Specific [place] 1.010 (1.000-1.030) Urine Protein Negative (Negative) Urine Glucose (UA) Negative (Negative) Urine Ketones Negative (Negative) Urine Blood Negative (Negative) Urine Nitrite Negative (Negative) Urine Bilirubin Negative (Negative) Urine Urobilinogen Negative (Negative) Ur Leukocyte Esterase Negative (Negative) Imaging Data Radiologist's Impression: Radiology results as stated below per my review and the radiologist's interpretation: CT abd pelvis IV con only CLINICAL HISTORY: Left lower quadrant abdominal pain COMPARISON STUDY: January 2007 TECHNIQUE: The patient was scanned in a dynamic helical fashion during intravenous administration of 94 cc of Optiray 320. A dose lowering technique was utilized adhering to the principles of ALARA. CT DOSE: 1154.34 mGycm FINDINGS: Lower chest: There are mild dependent atelectatic changes. Liver: The contrast-enhanced liver is normal in size, contour, and attenuation. There is no intrahepatic biliary ductal dilatation. The hepatic veins and portal veins are patent. Gallbladder: Unremarkable. Spleen: The spleen remains lobulated and mildly enlarged measuring 13 cm. Pancreas: Unremarkable. Adrenal glands: Unremarkable. Kidneys: There is symmetric renal cortical enhancement. The kidneys are normal in size without hydronephrosis. Bowel: There are no transition zones indicate bowel obstruction. There is no evidence of acute appendicitis. There is sigmoid wall thickening. There is mild infiltration of the perisigmoid fat. There is a 5.3 cm perisigmoid air-fluid collection likely representing a peridiverticular abscess. Peritoneum: There is no intraperitoneal free air or abdominal ascites. There is a tiny fat-containing umbilical hernia Vasculature: The abdominal aorta is normal in course and caliber. Adenopathy: None. Pelvic viscera: The uterus appears surgically absent Skeletal structures: No destructive osseous lesions are seen. IMPRESSION: 1. No evidence of bowel obstruction. No evidence of free air 2. Sigmoid diverticulitis with a 5.3 cm peridiverticular abscess 3. Mild splenomegaly similar to the preceding study Electronically signed by: Kenan Ji M.D. 12/04/2018 8:58 AM Blood Pressure Blood Pressure Findings: Normal blood pressure Blood Pressure Disposition: did not require urgent referral MDM Narrative This is a 63-year-old female who presents to the ED with a chief complaint of lower abdominal pain. She states that the majority of the pain is in the suprapubic area. She states that she initially was not feeling well on Tuesday but felt fine on Tuesday. Starting last night, she developed some sharp lower abdominal cramps as well as some chills. She states that she had some nausea, a little lightheadedness and headache. Currently her discomfort is primarily in the suprapubic area. On her exam she has tenderness in the entire lower abdomen but nothing above the umbilicus. She did not want narcotic pain medication as this causes her constipation. The patient is afebrile. White blood cell count was 18.3. Complete metabolic panel was unremarkable. A CT scan reveals acute sigmoid diverticulitis with a 5.3 cm peridiverticular abscess. Urine did not show infection. The patient was treated with IV Zosyn. I spoke with Dr. Luis Alfredo son who recommended medical admission and medical management at this point. I spoke with the hospitalist, who will see the patient for further inpatient evaluation and treatment. She was also treated with IV Toradol, IV fluids and IV Zofran. Impression & Plan Diverticulitis of large intestine with abscess : Diverticulitis of large intestine with abscess Qualifiers: Diverticulitis bleeding: without bleeding Qualified Code(s): K57.20 - Divert iculitis of large intestine with perforation and abscess without bleeding The scribe's documentation has been prepared under my direction and personally reviewed by me in its entirety. I confirm that the note above accurately reflects all work, treatment, procedures, and medical decision making performed by me.
[2018-12-04 08:10] LABS: Basophils # (auto) 0.01 K/uL (0-0.2); Basophils % (auto) 0.1 %; Eosinophils # (auto) 0.04 K/uL (0-0.5); Eosinophils % (auto) 0.2 %; Hematocrit (blood only) 40.8 % (37-47); Hemoglobin 13.7 g/dL (12.0-16.0); Immature Granulocytes # (auto) 0.05 K/uL (0.00-0.02); Immature Granulocytes % (auto) 0.3 %; Lymphocytes # (auto) 1.27 K/uL (1.2-3.4); Lymphocytes % (auto) 6.9 %; Mean Corpuscular Hgb Conc 33.6 g/dL (32-36); Mean Corpuscular Volume 90.3 fL (80-100); Mean Platelet Volume 10.2 fL (7.4-10.4); Monocytes # (auto) 1.24 K/uL (0.11-0.59); Monocytes % (auto) 6.8 %; Neutrophils # (auto) 15.73 K/uL (1.4-6.5); Neutrophils % (auto) 85.7 %; Platelet Count 237 K/uL (130-400); RDW Coefficient of Variation 13.9 % (11.5-14.5); Red Blood Count 4.52 M/uL (4.2-5.4); White Blood Count 18.34 K/uL (4.8-10.8)
[2018-12-04 08:29] LABS: Albumin Level 3.3 gm/dl (3.4-5.0); BUN Creatinine Ratio 13.5 (10-20); Calcium 8.7 mg/dl (8.5-10.1); Creatinine Clr Calc Pharmacy 55.7 ml/min; Est GFR (African American) 66.1; Potassium 3.7 mmol/L (3.5-5.1)
[2018-12-04 08:35] LABS: Albumin Globulin Ratio 0.8 (0.9-2); Bilirubin,Total 0.7 mg/dl (0.2-1); Globulin 4.1 gm/dl (2.5-4.0); Total Protein 7.4 gm/dl (6.4-8.2)
[2018-12-04] MEDS ORDERED: IOVERSOL 100ml IV PRN (08:46)
--- NOTE | 2018-12-04 09:00 | CT Scan Report ---
CT abd pelvis IV con only CLINICAL HISTORY: Left lower quadrant abdominal pain COMPARISON STUDY: January 2007 TECHNIQUE: The patient was scanned in a dynamic helical fashion during intravenous administration of 94 cc of Optiray 320. A dose lowering technique was utilized adhering to the principles of ALARA. CT DOSE: 1154.34 mGycm FINDINGS: Lower chest: There are mild dependent atelectatic changes. Liver: The contrast-enhanced liver is normal in size, contour, and attenuation. There is no intrahepa tic biliary ductal dilatation. The hepatic veins and portal veins are patent. Gallbladder: Unremarkable. Spleen: The spleen remains lobulated and mildly enlarged measuring 13 cm. Pancreas: Unremarkable. Adrenal glands: Unremarkable. Kidneys: There is symmetric renal cortical enhancement. The kidneys are normal in size without hydron ephrosis. Bowel: There are no transition zones indicate bowel obstruction. There is no evidence of acute append icitis. There is sigmoid wall thickening. There is mild infiltration of the perisigmoid fat. There is a 5.3 cm perisigmoid air-fluid collection likely representing a peridiverticular abscess. Peritoneum: There is no intraperitoneal free air or abdominal ascites. There is a tiny fat-containing umbilical hernia Vasculature: The abdominal aorta is normal in course and caliber. Adenopathy: None. Pelvic viscera: The uterus appears surgically absent Skeletal structures: No destructive osseous lesions are seen. IMPRESSION: 1. No evidence of bowel obstruction. No evidence of free air 2. Sigmoid diverticulitis with a 5.3 cm peridiverticular abscess 3. Mild splenomegaly similar to the preceding study Electronically signed by: Kenan iJ M.D. 12/04/2018 8:58 AM
[2018-12-04] MEDS ORDERED: PIPERACILLIN/TAZOBACTAM 4.5 GM/120 ML BAG IV ONE (09:47)
[2018-12-04] MEDS ORDERED: PIPERACILL/TAZOBAC CONSULT ACTIVE PRN (09:47)
[2018-12-04 09:53] LABS: Appearance Urine Clear (Clear); Bilirubin Urine Negative (Negative); Blood Urine Negative (Negative); Color Urine Yellow; Glucose Urine UA Negative (Negative); Ketones Urine Negative (Negative); Leukocyte Esterase Urine Negative (Negative); Nitrite Urine Negative (Negative); Protein Urine Negative (Negative); Urobilinogen Urine Negative (Negative); pH Urine 5.5 (4.5-7.5)
--- NOTE | 2018-12-04 11:05 | History & Physical Report ---
Date of Service December 04, 2018 Assessment & Plan (1) Diverticulitis of large intestine with abscess: Per ED, case reviewed with surgeon conditioner tender who recommended medical management. Leukocytosis secondary to this diagnosis. - Consult surgery to follow - Blood cultures x2, lactate, procalcitonin - Continue Zosyn started in ED - Bowel rest - NPO except sips/ice chips - IVF therapy - Labs in AM - Morphine prn for pain, Zofran prn for nausea - Check stool for C. diff since patient had diarrhea yesterday - If acute worsening of symptoms, may need to consider transfer for IR drainage of abscess Case reviewed with attending physician, Dr. Ambrose. Plan of care discussed and as outlined above. Janki Woodson PA-c Present on Admission?: Yes History of Present Illness Primary Care Provider: PCP - Kenneth Castano 63 y/o female with a PMH of diverticulosis, GERD and Schatzki ring who presented to the ED today with lower abdominal pain. Pt reports she woke up two days ago with generalized abdominal pain, nausea, vomiting and lightheadedness. Tried to drink a cup of tea but vomited. Rested most of the day and felt better by evening - was able to tolerate hot tea with crackers with peanut butter. Yesterday, woke up soaked in sweat but then went back to bed and woke up feeling fine. Was in usual state of health yesterday and ate normal diet. Woke up early this morning with lower abdominal pain (worse in LLQ), nausea, rigors, NAYAK and lightheadedness so came to ED for evaluation. Has not taken anything for pain. Did not eat anything this morning. Yesterday, she had a small amount of diarrhea but no BM today. No melena or hematochezia. Baseline bowel pattern is formed BM daily in AM without straining. No documented fevers. Last colonoscopy 03/07/13 - diverticulosis in sigmoid and descending colon but o/w normal. EGD done at same time revealed moderate Schatzki ring that was dilated and cut. There is a question of diverticulitis on her chart from 1999 but pt reports she has never had pain like this before. She did have a questionable diverticular bleed two years ago. Allergies Allergy/AdvReac Type Severity Reaction Status Date / Time bee venom protein (honey bee) Allergy Mild ANAPHLYAXIS Verified 12/04/18 09:13 peppermint Allergy Unknown Unknown Verified 12/04/18 09:13 Home Medications Home Medications Medication Instructions Recorded Confirmed Type No Known Home Medications 08/21/18 12/04/18 History Past Med/Surg History Medical History Diverticulitis of large intestine with abscess (Acute) Diverticulitis (Resolved) Diverticulosis of colon (Chronic) Iron disorder (Chronic) "elevated Fe & ferritin; genetic testing for hemochromatosis negative 08/09/17" Psoriasis (Chronic) Surgical History Status post hysterectomy (Resolved) Status post tonsillectomy (Resolved) Status post right shoulder hemiarthroplasty 07/2018 due to fracture Biceps tenodesis done at same time Family History Father Alzheimer disease Mother Diabetes mellitus, type 2 Other Family history non-contributory Social History Communication Ability: Effective Nuclear Medicine Technician Required: No Beliefs That Will Affect Care: None marital status: / Current Living Situation: Family Current Living Situation Comment: lives with son Other Information That Helps Us Care for You: No Feels Safe at Home: Yes Smoking Status: Never smoker Hx Alcohol Use: No Hx Substance Use: No Review of Systems All systems reviewed & are unremarkable except as noted in HPI & below Constitutional: + chills, + sweats, + fatigue and + anorexia; no fever, no malaise and no weight loss Eyes: no diplopia, not seeing flashes and no worsening vision Ear, Nose, Mouth, Throat: no nasal congestion, no nasal discharge, no sinus pain/pressure, no sore throat and no dysphagia Respiratory: no cough, no dyspnea, no hemoptysis and no wheezing Cardiovascular: no chest pain, no dyspnea on exertion, no palpitations, no syncope and no edema Gastrointestinal: as per Subjective / HPI Genitourinary (Female): + dysuria (x1 this morning); no difficulty urinating, no urinary frequency, no urinary urgency, no decreased urination and no hematuria Musculoskeletal: + joint pain (chronic right shoulder since fracture and subsequent surgery in Jul 2018); no back pain, no myalgia and no muscle weakness Integumentary: no rash, no non-healing lesions and no skin ulcer Neurologic: no falls, no localized weakness, no numbness, no paresthesia and no syncope Endocrine: no polydipsia, no polyphagia and no polyuria Hematologic / Lymphatic: no easy bleeding and no unexplained weight loss Physical Exam Vital Signs (Past 24 Hours): Last Vital Signs Temp 37.6 C H 12/04/18 07:36 Pulse 88 12/04/18 09:27 Resp 16 12/04/18 09:27 BP 119/54 L 12/04/18 09:27 Pulse Ox 98 12/04/18 09:27 Constitutional: WD/WN, vitals as above Eyes: PERRL, conjunctivae normal, anicteric sclerae ENMT: external ear and nose normal, oropharynx normal Neck: trachea midline Respiratory: no respiratory distress and no labored breathing Auscultation: lungs clear to auscultation bilaterally; no rales, no rhonchi and no wheezes Cardiovascular: Rate/Rhythm: regular rate and regular rhythm Heart Sounds: no gallop, no murmur and no cardiac rub Vessels: no JVD and no carotid bruit Extremities: normal capillary refill; no calf tenderness and no edema Gastrointestinal (Abdomen): Inspection/Auscultation: normal bowel sounds; abdomen not distended Percussion/Palpation: + abdomen tender (to percussion and palpation in LLQ ), + guarding (voluntary guarding in LLQ), abdomen soft and + tympanic to percussion Moderate LLQ tenderness to light palpation, mild tenderness in LUQ and suprapubic area to light palpation. Musculoskeletal: no cyanosis or clubbing, extremities motor strength 5/5 Skin: no rashes, warm and dry normal turgor Neurologic: moves all extremities Cranial Nerves: tongue midline and able to elevate shoulders bilaterally Psychiatric: A+Ox3, euthymic affect Results & Data Laboratory Results Laboratory Results - last 24 hr 12/04/18 12/04/18 12/04/18 08:00 08:00 09:30 WBC 18.34 H RBC 4.52 Hgb 13.7 Hct 40.8 MCV 90.3 MCH 30.3 MCHC 33.6 RDW Std Deviation 46.0 RDW Coeff of Destiny 13.9 Plt Count 237 MPV 10.2 Immature Gran % (Auto) 0.3 Neut % (Auto) 85.7 Lymph % (Auto) 6.9 [place] % (Auto) 6.8 Eos % (Auto) 0.2 Baso % (Auto) 0.1 Immature Gran # (Auto) 0.05 H Neut # (Auto) 15.73 H Lymph # (Auto) 1.27 [place] # (Auto) 1.24 H Eos # (Auto) 0.04 Baso # (Auto) 0.01 Sodium 138 Potassium 3.7 Chloride 104 Carbon Dioxide 25 Anion Gap 9.0 BUN 14 Creatinine 1.03 Est Cr Clr Drug Dosing 55.7 Est GFR ( Amer) 66.1 Est GFR (Non-Af Amer) 57.0 BUN/Creatinine Ratio 13.5 Glucose 147 H Calcium 8.7 Total Bilirubin 0.7 AST 22 ALT 25 Alkaline Phosphatase 85 Total Protein 7.4 Albumin 3.3 L Globulin 4.1 H Albumin/Globulin Ratio 0.8 L Lipase 126 Specimen Hemolysis Urine Color Yellow Urine Appearance Clear Urine pH 5.5 Ur Specific [place] 1.010 Urine Protein Negative Urine Glucose (UA) Negative Urine Ketones Negative Urine Blood Negative Urine Nitrite Negative Urine Bilirubin Negative Urine Urobilinogen Negative Ur Leukocyte Esterase Negative Diagnostic Findings CT Abdomen/Pelvis 12/04/18 - IMPRESSION: 1. No evidence of bowel obstruction. No evidence of free air 2. Sigmoid diverticulitis with a 5.3 cm peridiverticular abscess 3. Mild splenomegaly similar to the preceding study Medications Administered Ioversol (Optiray 320 100ml) 94 ml IV ONCE PRN PRN Reason: Interaction Checking Stop: 12/08/18 08:45 Last Admin: 12/04/18 08:46 Dose: 94 ml Documented by: [id number] Discontinued Medications Sodium Chloride (Nss) 500 mls @ 999 mls/hr IV .Q31M PAT Stop: 12/04/18 08:30 Last Infusion: 12/04/18 08:32 Dose: 0 mls/hr Documented by: [id number] Admin: 12/04/18 08:01 Dose: 999 mls/hr Documented by: [id number] Piperacillin Sod/Tazobactam Sod (Zosyn) 4.5 gm in 120 mls @ 240 mls/hr IV NOW ONE Stop: 12/04/18 10:16 Last Infusion: 12/04/18 10:33 Dose: 0 mls/hr Documented by: [id number] Admin: 12/04/18 10:03 Dose: 240 mls/hr Documented by: [id number] Ketorolac Tromethamine (Toradol) 15 mg IV NOW STA Stop: 12/04/18 07:48 Last Admin: 12/04/18 08:01 Dose: 15 mg Documented by: [id number] Ondansetron HCl (Zofran) 4 mg IV NOW STA Stop: 12/04/18 07:50 Last Admin: 12/04/18 08:01 Dose: 4 mg Documented by: [id number] Supervising Physician Co-Signing Physician Notes I saw this patient with the physician machine assistant, I participated in the history, physical, review of systems, and physical exam. I reviewed the medications with the patient and the physician machine assistant and helped reconcile the medications. I helped take a detailed family and social history as well. I formulated the assessment and plan personally with the physician machine assistant and went over it wit h the patient. ROS-No Headache, No Visual Changes,+Nausea, +Vomiting, No Fever, No Chills, No Neck Pain or Stiffness, No Chest Pain, No Palpitations, No SOB, No APONTE, No Cough , No Sputum, No Wheezing, +Abdominal Pain, No Diarrhea, No Hematemesis, No Hemoptysis, No Unexpected Weight Loss, No Flank pain, No Melena, No Hematochezia, No Frequency, No Urgency, No Burning, No Hematuria, No Rashes, No Diaphoresis. Appetite is Normal Physical Exam Gen-AAO x 3, NAD, Afebrile, Obese Head-NCAT, EOMI, PERRLA, Anicteric Sclera, No Posterior Pharyngeal Erythema Neck-Supple, No JVD, No Thyromegaly, No Masses, No LAD, No Bruits Lungs-Clear to Auscultation Bilaterally, No Rales, No Rhonchi, No Wheezing, No Crepitus Chest-No S4, +S1, +S2, No S3, No Murmurs, No Rubs, No Gallops, No Ectopy Abdomen-Soft, Bowel Sounds Present, Left Side Tender, Non Distended, No Hepatomegaly, No Splenomegaly, No Palpable Masses, No Rebound, No Rigidity, No Guarding Musculoskeletal-Full Range of Motion Bilaterally, No CVAT Extremities-No Cyanosis, No Clubbing, No Edema Nuero-Cranial Nerves II-XII grossly intact, Motor WNL, DTRs WNL, Strength WNL, Non Focal Psych-Normal Mood (1) Diverticulitis of large intestine with abscess Diverticulitis bleeding: without bleeding Qualified Code(s): K57.20 - Diverticulitis of large intestine with perforation and abscess without bleeding
[2018-12-04] MEDS ORDERED: MoRPHine SULFATE 2 MG/ML CARP IV PRN (12:00)
[2018-12-04] MEDS ORDERED: ONDANSETRON INJ 2 MG/ML 2 ML VIAL IV PRN (12:00)
[2018-12-04] MEDS: D5W AND NSS 1,000 ML IV SCH ×2 (12:41→20:40)
--- NOTE | 2018-12-04 13:37 | Surgery Consultation ---
Date of Consultation December 04, 2018 Assessment & Plan (1) Diverticulitis of large intestine with abscess: 63 year-old female who presented to emergency room with complaint of abdominal pain that started Tuesday morning with associated nausea, anorexia, and sweats. Prior history of diverticulitis 2 years ago with rectal bleeding. Never had this type of pain before. CT scan showing signs of complicated sigmoid diverticulitis with 5.3 cm peridiverticular abscess. No evidence of pneumoperitoneum. labs show leukocytosis of 18K. lactic acid 1.5. Abdomen is soft, no peritonitis, tender in the LLQ and suprapubic. Plan: Abscess barely meeting criteria for drainage via IR approach. Would recommend to continue conservative management with IV fluids, strict NPO, IV braod spectrum Abx, IV morphine prn pain, IV Zofran prn nausea. Discussed with patient that if she does not clinically approve may require drainage via IR approach which would require transfer. Continue medical management Repeat am labs will follow along Dr. Broussard has seen and examined patient, agrees with above. Supervising Physician Co-Signing Physician Notes I interviewed and examined this patient and reviewed her laboratories and radiologic studies and I agree with the above note. She has acute diverticulitis with a possible perforation that is walled off with an abscess. I agree with conservative measures but keeping her n.p.o. with broad-spectrum antibiotics for now. If this area of abscess seems to be increasing instead of decreasing and she is not improving from a symptom standpoint I would recommend interventional radiology for drainage and placement of a catheter. History of Present Illness Reason for Consultation: Diverticulitis with abscess Requesting Physician: Marilyn Ambrose Attending Physician: Marilyn Ambrose MD History of Present Illness Jazmine is a pleasant 63 year-old female who presented to emergency department with complaint of abdominal pain, nausea, anorexia, and sweats that began Tuesday. States she woke up Tuesday with pain and some nausea. Was not able to keep anything down until Tuesday night. States Tuesday she felt much better was able to eat two meals without any pain or nausea/vomiting. States she then had sweats Tuesday night and when she woke up she again felt abdominal pain in the lower abdomen and left side with dizziness and nausea. Never had this type of pain before but did have an episode of diverticulitis a few years ago in which she had rectal bleeding. States that cleared up and never had any further troubles. Denies of any fever, chills, chest pain, shortness of breath, diarrhea, constipation, blood in stools, black/tarry stools. Er work-up included labs which showed leukocytosis of 18K. CT scan of abdomen and pelvis showing sigmoid diverticulitis with peridiverticular abscess measuring 5.3 cm. Allergies Allergy/AdvReac Type Severity Reaction Status Date / Time bee venom protein (honey bee) Allergy Mild ANAPHLYAXIS Verified 12/04/18 09:13 peppermint Allergy Unknown Unknown Verified 12/04/18 09:13 Home Medications Home Medications Medication Instructions Recorded Confirmed Type No Known Home Medications 08/21/18 12/04/18 History Patient History Medical History Diverticulitis of large intestine with abscess (Acute) Diverticulitis (Resolved) Diverticulosis of colon (Chronic) Iron disorder (Chronic) "elevated Fe & ferritin; genetic testing for hemochromatosis negative 08/09/17" Psoriasis (Chronic) Surgical History Status post hysterectomy (Resolved) Status post tonsillectomy (Resolved) Status post right shoulder hemiarthroplasty 07/2018 due to fracture Biceps tenodesis done at same time Family History Father Alzheimer disease Mother Diabetes mellitus, type 2 Other Family history non-contributory Social History Communication Ability: Effective Sisal Operator Required: No Beliefs That Will Affect Care: None marital status: / Current Living Situation: Family Current Living Situation Comment: lives with son Other Information That Helps Us Care for You: No Feels Safe at Home: Yes Smoking Status: Never smoker Hx Alcohol Use: No Hx Substance Use: No Review of Systems Constitutional: as per Subjective / HPI Physical Exam Vital Signs (Past 24 Hours): Last Vital Signs Temp 36.4 C L 12/04/18 12:00 Pulse 77 12/04/18 12:00 Resp 16 12/04/18 12:00 BP 109/70 12/04/18 12:00 Pulse Ox 91 12/04/18 12:00 Constitutional: WD/WN, vitals as above well nourished and + obese; no acute distress Respiratory: normal respiratory effort, lungs clear to auscultation Cardiovascular: RRR, no murmur, no edema Gastrointestinal (Abdomen): Inspection/Auscultation: abdomen normal to inspection and normal bowel sounds; abdomen not distended Percussion/Palpation: + abdomen tender (LLQ and suprapubic), + guarding (LLQ and suprapubic) and abdomen soft; abdomen not rigid Skin: no rashes, warm and dry Psychiatric: A+Ox3, euthymic affect Results & Data Laboratory Results 12/04/18 12/04/18 12/04/18 Range/Units 11:23 11:23 09:30 WBC (4.8-10.8) K/uL RBC (4.2-5.4) M/uL Hgb (12.0-16.0) g/dL Hct (37-47) % MCV (80-100) fL MCH (25-34) pg MCHC (32-36) g/dL RDW Std Deviation (36.4-46.3) fL RDW Coeff of Destiny (11.5-14.5) % Plt Count (130-400) K/uL MPV (7.4-10.4) fL Immature Gran % (Auto) % Neut % (Auto) % Lymph % (Auto) % [place] % (Auto) % Eos % (Auto) % Baso % (Auto) % Immature Gran # (Auto) (0.00-0.02) K/uL Neut # (Auto) (1.4-6.5) K/uL Lymph # (Auto) (1.2-3.4) K/uL [place] # (Auto) (0.11-0.59) K/uL Eos # (Auto) (0-0.5) K/uL Baso # (Auto) (0-0.2) K/uL Sodium (136-145) mmol/L Potassium (3.5-5.1) mmol/L Chloride (98-107) mmol/L Carbon Dioxide (21-32) mmol/L Anion Gap (3-11) BUN (7-18) mg/dl Creatinine (0.6-1.2) mg/dl Est Cr Clr Drug Dosing ml/min Est GFR ( Amer) Est GFR (Non-Af Amer) BUN/Creatinine Ratio (10-20) Glucose (70-99) mg/dl Lactate 1.5 (0.4-2.0) mmol/L Calcium (8.5-10.1) mg/dl Total Bilirubin (0.2-1) mg/dl AST (15-37) U/L ALT (12-78) U/L Alkaline Phosphatase (45-117) U/L Total Protein (6.4-8.2) gm/dl Albumin (3.4-5.0) gm/dl Globulin (2.5-4.0) gm/dl Albumin/Globulin Ratio (0.9-2) Lipase (73-393) U/L Procalcitonin 0.51 H (0-0.5) ng/ml Specimen Hemolysis Urine Color Yellow Urine Appearance Clear (Clear) Urine pH 5.5 (4.5-7.5) Ur Specific [place] 1.010 (1.000-1.030) Urine Protein Negative (Negative) Urine Glucose (UA) Negative (Negative) Urine Ketones Negative (Negative) Urine Blood Negative (Negative) Urine Nitrite Negative (Negative) Urine Bilirubin Negative (Negative) Urine Urobilinogen Negative (Negative) Ur Leukocyte Esterase Negative (Negative) 12/04/18 12/04/18 Range/Units 08:00 08:00 WBC 18.34 H (4.8-10.8) K/uL RBC 4.52 (4.2-5.4) M/uL Hgb 13.7 (12.0-16.0) g/dL Hct 40.8 (37-47) % MCV 90.3 (80-100) fL MCH 30.3 (25-34) pg MCHC 33.6 (32-36) g/dL RDW Std Deviation 46.0 (36.4-46.3) fL RDW Coeff of Destiny 13.9 (11.5-14.5) % Plt Count 237 (130-400) K/uL MPV 10.2 (7.4-10.4) fL Immature Gran % (Auto) 0.3 % Neut % (Auto) 85.7 % Lymph % (Auto) 6.9 % [place] % (Auto) 6.8 % Eos % (Auto) 0.2 % Baso % (Auto) 0.1 % Immature Gran # (Auto) 0.05 H (0.00-0.02) K/uL Neut # (Auto) 15.73 H (1.4-6.5) K/uL Lymph # (Auto) 1.27 (1.2-3.4) K/uL [place] # (Auto) 1.24 H (0.11-0.59) K/uL Eos # (Auto) 0.04 (0-0.5) K/uL Baso # (Auto) 0.01 (0-0.2) K/uL Sodium 138 (136-145) mmol/L Potassium 3.7 (3.5-5.1) mmol/L Chloride 104 (98-107) mmol/L Carbon Dioxide 25 (21-32) mmol/L Anion Gap 9.0 (3-11) BUN 14 (7-18) mg/dl Creatinine 1.03 (0.6-1.2) mg/dl Est Cr Clr Drug Dosing 55.7 ml/min Est GFR ( Amer) 66.1 Est GFR (Non-Af Amer) 57.0 BUN/Creatinine Ratio 13.5 (10-20) Glucose 147 H (70-99) mg/dl Lactate (0.4-2.0) mmol/L Calcium 8.7 (8.5-10.1) mg/dl Total Bilirubin 0.7 (0.2-1) mg/dl AST 22 (15-37) U/L ALT 25 (12-78) U/L Alkaline Phosphatase 85 (45-117) U/L Total Protein 7.4 (6.4-8.2) gm/dl Albumin 3.3 L (3.4-5.0) gm/dl Globulin 4.1 H (2.5-4.0) gm/dl Albumin/Globulin Ratio 0.8 L (0.9-2) Lipase 126 (73-393) U/L Procalcitonin (0-0.5) ng/ml Specimen Hemolysis Urine Color Urine Appearance (Clear) Urine pH (4.5-7.5) Ur Specific [place] (1.000-1.030) Urine Protein (Negative) Urine Glucose (UA) (Negative) Urine Ketones (Negative) Urine Blood (Negative) Urine Nitrite (Negative) Urine Bilirubin (Negative) Urine Urobilinogen (Negative) Ur Leukocyte Esterase (Negative) Diagnostic Findings CT abd pelvis IV con only CLINICAL HISTORY: Left lower quadrant abdominal pain COMPARISON STUDY: January 2007 TECHNIQUE: The patient was scanned in a dynamic helical fashion during intravenous administration of 94 cc of Optiray 320. A dose lowering technique was utilized adhering to the principles of ALARA. CT DOSE: 1154.34 mGycm FINDINGS: Lower chest: There are mild dependent atelectatic changes. Liver: The contrast-enhanced liver is normal in size, contour, and attenuation. There is no intrahepatic biliary ductal dilatation. The hepatic veins and portal veins are patent. Gallbladder: Unremarkable. Spleen: The spleen remains lobulated and mildly enlarged measuring 13 cm. Pancreas: Unremarkable. Adrenal glands: Unremarkable. Kidneys: There is symmetric renal cortical enhancement. The kidneys are normal in size without hydronephrosis. Bowel: There are no transition zones indicate bowel obstruction. There is no evidence of acute appendicitis. There is sigmoid wall thickening. There is mild infiltration of the perisigmoid fat. There is a 5.3 cm perisigmoid air-fluid collection likely representing a peridiverticular abscess. Peritoneum: There is no intraperitoneal free air or abdominal ascites. There is a tiny fat-containing umbilical hernia Vasculature: The abdominal aorta is normal in course and caliber. Adenopathy: None. Pelvic viscera: The uterus appears surgically absent Skeletal structures: No destructive osseous lesions are seen. IMPRESSION: 1. No evidence of bowel obstruction. No evidence of free air 2. Sigmoid diverticulitis with a 5.3 cm peridiverticular abscess 3. Mild splenomegaly similar to the preceding study (1) Diverticulitis of large intestine with abscess Diverticulitis bleeding: without bleeding Qualified Code(s): K57.20 - Diverticulitis of large intestine with perforation and abscess without bleeding
[2018-12-04] MEDS: PIPERACILLIN/TAZOBACTAM 3.375 GM in DEXTROSE 5% 100 ML IV SCH ×2 (16:38→23:39)
[2018-12-04] MEDS: KETOROLAC TROMETHAMINE 15 MG/ML VIAL IV PRN (16:48)
[2018-12-05] MEDS: D5W AND NSS 1,000 ML IV SCH ×3 (04:33→21:17)
[2018-12-05] MEDS: KETOROLAC TROMETHAMINE 15 MG/ML VIAL IV PRN (04:56)
[2018-12-05 08:06] LABS: Basophils # (auto) 0.01 K/uL (0-0.2); Basophils % (auto) 0.1 %; Eosinophils # (auto) 0.09 K/uL (0-0.5); Eosinophils % (auto) 1.2 %; Hematocrit (blood only) 35.1 % (37-47); Hemoglobin 11.5 g/dL (12.0-16.0); Immature Granulocytes # (auto) 0.02 K/uL (0.00-0.02); Immature Granulocytes % (auto) 0.3 %; Lymphocytes # (auto) 1.83 K/uL (1.2-3.4); Lymphocytes % (auto) 23.5 %; Mean Corpuscular Hgb Conc 32.8 g/dL (32-36); Mean Corpuscular Volume 91.9 fL (80-100); Mean Platelet Volume 10.5 fL (7.4-10.4); Monocytes # (auto) 0.41 K/uL (0.11-0.59); Monocytes % (auto) 5.3 %; Neutrophils # (auto) 5.44 K/uL (1.4-6.5); Neutrophils % (auto) 69.6 %; Platelet Count 204 K/uL (130-400); RDW Coefficient of Variation 13.9 % (11.5-14.5); RDW Standard Deviation 46.5 fL (36.4-46.3); Red Blood Count 3.82 M/uL (4.2-5.4)
[2018-12-05 08:28] LABS: BUN Creatinine Ratio 11.7 (10-20); Calcium 7.4 mg/dl (8.5-10.1); Creatinine Clr Calc Pharmacy 60.7 ml/min; Est GFR (African American) 73.8; Est GFR (Non-African American) 63.7; Potassium 3.6 mmol/L (3.5-5.1)
[2018-12-05] MEDS: PIPERACILLIN/TAZOBACTAM 3.375 GM in DEXTROSE 5% 100 ML IV SCH ×3 (09:16→23:33)
--- NOTE | 2018-12-05 10:01 | Surgery Progress Note ---
Date of Service December 05, 2018 Assessment & Plan (1) Diverticulitis of large intestine with abscess: complicated diverticulitis with peridiverticular abscess -vitals stable, afebrile - leukocytosis resolved - pain still present, no significant change - abdomen soft, no peritonitis, tender in LLQ and suprapubic (exam improved compared to yesterday but pain still present on palpation. Plan: Continue conservative treatment, no acute surgical intervention required at this time. Given episode of pain with flatus would continue NPO, IV fluids, IV Abx, IV pain management prn, IV Zofran prn nausea Encourage OOB to chair and ambulate Continue medical management Dr. Broussard has seen and examined pt, agrees with above Subjective passed gas this morning and had sudden abdominal pain and shivering, feeling much better now only required Morphine two times yesterday, had some this morning no n/v no fevers overnight no rectal bleeding or bowel movements abdominal pain about the same as yesterday Physical Exam Vital Signs (Past 24 Hours): Last Vital Signs Temp 36.5 C 12/05/18 08:00 Pulse 63 12/05/18 08:00 Resp 16 12/05/18 08:00 BP 105/44 L 12/05/18 08:00 Pulse Ox 95 12/05/18 08:00 Constitutional: WD/WN, vitals as above no acute distress and not ill appearing Respiratory: normal respiratory effort; no respiratory distress Gastrointestinal (Abdomen): Inspection/Auscultation: abdomen normal to inspection; abdomen not distended Percussion/Palpation: + abdomen tender (LLQ and suprapubic, improved compared to yesterday exam), + guarding and abdomen soft; abdomen not rigid Skin: no rashes, warm and dry Psychiatric: A+Ox3, euthymic affect Results & Data Laboratory Results 12/05/18 12/05/18 12/05/18 Range/Units 07:18 07:18 04:49 WBC 7.80 D (4.8-10.8) K/uL RBC 3.82 L (4.2-5.4) M/uL Hgb 11.5 L (12.0-16.0) g/dL Hct 35.1 L (37-47) % MCV 91.9 (80-100) fL MCH 30.1 (25-34) pg MCHC 32.8 (32-36) g/dL RDW Std Deviation 46.5 H (36.4-46.3) fL RDW Coeff of Destiny 13.9 (11.5-14.5) % Plt Count 204 (130-400) K/uL MPV 10.5 H (7.4-10.4) fL Immature Gran % (Auto) 0.3 % Neut % (Auto) 69.6 % Lymph % (Auto) 23.5 % [place] % (Auto) 5.3 % Eos % (Auto) 1.2 % Baso % (Auto) 0.1 % Immature Gran # (Auto) 0.02 (0.00-0.02) K/uL Neut # (Auto) 5.44 (1.4-6.5) K/uL Lymph # (Auto) 1.83 (1.2-3.4) K/uL [place] # (Auto) 0.41 (0.11-0.59) K/uL Eos # (Auto) 0.09 (0-0.5) K/uL Baso # (Auto) 0.01 (0-0.2) K/uL Sodium 145 D (136-145) mmol/L Potassium 3.6 (3.5-5.1) mmol/L Chloride 112 H (98-107) mmol/L Carbon Dioxide 25 (21-32) mmol/L Anion Gap 8.0 (3-11) BUN 11 (7-18) mg/dl Creatinine 0.94 (0.6-1.2) mg/dl Est Cr Clr Drug Dosing 60.7 ml/min Est GFR ( Amer) 73.8 Est GFR (Non-Af Amer) 63.7 BUN/Creatinine Ratio 11.7 (10-20) Glucose 127 H (70-99) mg/dl POC Glucose 128 H (70-99) Calcium 7.4 L (8.5-10.1) mg/dl (1) Diverticulitis of large intestine with abscess Diverticulitis bleeding: without bleeding Qualified Code(s): K57.20 - Diverticulitis of large intestine with perforation and abscess without bleeding
--- NOTE | 2018-12-05 13:23 | Hospitalist Progress Note ---
Date of Service December 05, 2018 Assessment & Plan (1) Diverticulitis of large intestine with abscess: Per ED, case reviewed with surgeon heating and ventilation engineer who recommended medical management. Leukocytosis secondary to this diagnosis. - Surgery on case - Blood cultures x2, lactate, procalcitonin, Leukocytosis resolved - Continue Zosyn - Bowel rest - NPO except sips/ice chips - IVFs - Morphine prn for pain, Zofran prn for nausea - If acute worsening of symptoms, likely won't transfer for IR drainage of abscess, responding well to Zosyn (2) Nausea & vomiting: resolved (3) Leukocytosis: resolved (4) Fracture of right shoulder: Ice, pain control (5) DVT prophylaxis: Add SQ Heparin, likely won't have surgery until Abx course complete Subjective Had a rough night last night, surgery input reviewed ROS-No Headache, No Visual Changes, No Nausea, No Vomiting, No Fever, No Chills, No Neck Pain or Stiffness, No Chest Pain, No Palpitations, No SOB, No APONTE, No Cough, No Sputum, No Wheezing, +Abdominal Pain, No Diarrhea, No Hematemesis, No Hemoptysis, No Unexpected Weight Loss, No Flank pain, No Melena, No Hematochezia, No Frequency, No Urgency, No Burning, No Hematuria, No Rashes, No Diaphoresis. Appetite is Normal Physical Exam Gen-AAO x 3, NAD, Afebrile Head-NCAT, EOMI, PERRLA, Anicteric Sclera, No Posterior Pharyngeal Erythema Neck-Supple, No JVD, No Thyromegaly, No Masses, No LAD, No Bruits Lungs-Clear to Auscultation Bilaterally, No Rales, No Rhonchi, No Wheezing, No Crepitus Chest-No S4, +S1, +S2, No S3, No Murmurs, No Rubs, No Gallops, No Ectopy Abdomen-Soft, Bowel Sounds Present, Tender, Non Distended, No Hepatomegaly, No Splenomegaly, No Palpable Masses, No Rebound, No Rigidity, +Guarding Musculoskeletal-Full Range of Motion Bilaterally, No CVAT Extremities-No Cyanosis, No Clubbing, No Edema Nuero-Cranial Nerves II-XII grossly intact, Motor WNL, DTRs WNL, Strength WNL, Non Focal Psych-Normal Mood Physical Exam Vital Signs (Past 24 Hours): Last Vital Signs Temp 36.5 C 12/05/18 11:17 Pulse 66 12/05/18 11:17 Resp 16 12/05/18 11:17 BP 111/72 12/05/18 11:17 Pulse Ox 97 12/05/18 11:17 Results & Data Laboratory Results reviewed (1) Diverticulitis of large intestine with abscess Diverticulitis bleeding: without bleeding Qualified Code(s): K57.20 - Diverticulitis of large intestine with perforation and abscess without bleeding (2) Fracture of right shoulder Encounter type: initial encounter Fracture type: closed Qualified Code(s): S42.91XA - Fracture of right shoulder girdle, part unspecified, initial encounter for closed fracture
[2018-12-05 17:03] LABS: Prothrombin Time 10.1 Seconds (9.0-12.0)
[2018-12-05] MEDS: HEPARIN SOD 5,000 UNIT/0.5 ML VIAL SQ SCH (21:16)
[2018-12-06] MEDS: D5W AND NSS 1,000 ML IV SCH ×3 (04:06→21:14)
[2018-12-06] MEDS: HEPARIN SOD 5,000 UNIT/0.5 ML VIAL SQ SCH ×3 (06:12→21:16)
[2018-12-06] MEDS: PIPERACILLIN/TAZOBACTAM 3.375 GM in DEXTROSE 5% 100 ML IV SCH ×3 (08:09→23:36)
[2018-12-06 08:51] LABS: Basophils # (auto) 0.01 K/uL (0-0.2); Basophils % (auto) 0.2 %; Eosinophils # (auto) 0.08 K/uL (0-0.5); Eosinophils % (auto) 1.3 %; Hematocrit (blood only) 35.3 % (37-47); Hemoglobin 11.3 g/dL (12.0-16.0); Immature Granulocytes # (auto) 0.01 K/uL (0.00-0.02); Immature Granulocytes % (auto) 0.2 %; Lymphocytes # (auto) 1.79 K/uL (1.2-3.4); Lymphocytes % (auto) 29.2 %; Mean Corpuscular Volume 93.1 fL (80-100); Monocytes # (auto) 0.43 K/uL (0.11-0.59); Neutrophils % (auto) 62.1 %; Platelet Count 196 K/uL (130-400); RDW Standard Deviation 47.9 fL (36.4-46.3); Red Blood Count 3.79 M/uL (4.2-5.4); White Blood Count 6.12 K/uL (4.8-10.8)
[2018-12-06 09:25] LABS: BUN Creatinine Ratio 8.3 (10-20); Calcium 7.5 mg/dl (8.5-10.1); Creatinine Clr Calc Pharmacy 64.8 ml/min; Est GFR (African American) 79.9; Est GFR (Non-African American) 68.9; Potassium 3.7 mmol/L (3.5-5.1)
--- NOTE | 2018-12-06 10:36 | Surgery Progress Note ---
Date of Service December 06, 2018 Assessment & Plan (1) Diverticulitis of large intestine with abscess: complicated diverticulitis with peridiverticular abscess -vitals stable, afebrile - leukocytosis resolved - pain still present, but improving - abdomen soft, no peritonitis, tender in LLQ and suprapubic (exam improved compared to yesterday now on deep palpation) Plan: Continue conservative treatment, no acute surgical intervention required at this time. May have ice chips/sips Continue conservative management: IV fluids, IV Abx, IV pain management prn, IV Zofran prn nausea Encourage OOB to chair and ambulate Continue medical management Dr. Broussard has seen and examined pt, agrees with above Supervising Physician Co-Signing Physician Notes I interviewed and examined this patient and I agree with the above note. Clinically she has improved. Would continue with conservative measures. There is no diffuse peritonitis. There is no evidence for surgical intervention at this time. Subjective feeling better today passing flatus without increasing pain, no bowel movement no n/v abdominal pain still present in the left lower side Physical Exam Vital Signs (Past 24 Hours): Last Vital Signs Temp 36.3 C L 12/06/18 07:51 Pulse 60 12/06/18 07:51 Resp 20 12/06/18 07:51 BP 102/46 L 12/06/18 07:51 Pulse Ox 97 12/06/18 07:51 Constitutional: WD/WN, vitals as above no acute distress and not ill appearing Respiratory: no respiratory distress Gastrointestinal (Abdomen): Inspection/Auscultation: normal bowel sounds; abdomen not distended Percussion/Palpation: + abdomen tender (LLQ and suprapubic but improved, on deep palpation) and abdomen soft; no guarding and abdomen not rigid Skin: no rashes, warm and dry Psychiatric: A+Ox3, euthymic affect Results & Data Laboratory Results 12/06/18 12/06/18 12/05/18 Range/Units 08:34 08:34 16:20 WBC 6.12 (4.8-10.8) K/uL RBC 3.79 L (4.2-5.4) M/uL Hgb 11.3 L (12.0-16.0) g/dL Hct 35.3 L (37-47) % MCV 93.1 (80-100) fL MCH 29.8 (25-34) pg MCHC 32.0 (32-36) g/dL RDW Std Deviation 47.9 H (36.4-46.3) fL RDW Coeff of Destiny 14.0 (11.5-14.5) % Plt Count 196 (130-400) K/uL MPV 10.0 (7.4-10.4) fL Immature Gran % (Auto) 0.2 % Neut % (Auto) 62.1 % Lymph % (Auto) 29.2 % [place] % (Auto) 7.0 % Eos % (Auto) 1.3 % Baso % (Auto) 0.2 % Immature Gran # (Auto) 0.01 (0.00-0.02) K/uL Neut # (Auto) 3.80 (1.4-6.5) K/uL Lymph # (Auto) 1.79 (1.2-3.4) K/uL [place] # (Auto) 0.43 (0.11-0.59) K/uL Eos # (Auto) 0.08 (0-0.5) K/uL Baso # (Auto) 0.01 (0-0.2) K/uL PT 10.1 (9.0-12.0) Seconds INR 1.0 (0.9-1.1) Sodium 145 (136-145) mmol/L Potassium 3.7 (3.5-5.1) mmol/L Chloride 114 H (98-107) mmol/L Carbon Dioxide 25 (21-32) mmol/L Anion Gap 5.0 (3-11) BUN 7 (7-18) mg/dl Creatinine 0.88 (0.6-1.2) mg/dl Est Cr Clr Drug Dosing 64.8 ml/min Est GFR ( Amer) 79.9 Est GFR (Non-Af Amer) 68.9 BUN/Creatinine Ratio 8.3 L (10-20) Glucose 114 H (70-99) mg/dl Calcium 7.5 L (8.5-10.1) mg/dl (1) Diverticulitis of large intestine with abscess Diverticulitis bleeding: without bleeding Qualified Code(s): K57.20 - Diverticulitis of large intestine with perforation and abscess without bleeding
[2018-12-06] MEDS: KETOROLAC TROMETHAMINE 15 MG/ML VIAL IV PRN (20:22)
--- NOTE | 2018-12-06 21:43 | Hospitalist Progress Note ---
Date of Service December 06, 2018 Assessment & Plan (1) Diverticulitis of large intestine with abscess: CT abd/pelvis showed sigmoid diverticulitis with a 5.3 cm peridiverticular abscess Elevated WBC and procalcitonin On IV zosyn Surgery on board, recommended conservative management Continue Bowel rest and NPO except sips/ice chips Continue IVF (2) Nausea & vomiting: resolved (3) Leukocytosis: resolved (4) Fracture of right shoulder: pain control Stable (5) DVT prophylaxis: SCD for now (In case if pt needs to go for procedure) Subjective Pt was seen and examined Lying in bed with no distress Pt said that abdominal pain slightly improves Denies any chest pain, palpitation, dizziness and fever Physical Exam Vital Signs (Past 24 Hours): Last Vital Signs Temp 36.5 C 12/06/18 15:09 Pulse 55 L 12/06/18 15:09 Resp 16 12/06/18 15:09 BP 109/66 12/06/18 15:09 Pulse Ox 97 12/06/18 15:09 Physical Exam: General- No acute distress Head- atraumatic Eyes- PERRL, EOMI, ENT- oropharynx clear Neck- supple, no JVD Lungs- No wheezing Heart- regular rhythm; no murmur Abdomen- +LLQ abdominal tenderness Extremities- no calf tenderness Neuro- alert, oriented x 3; PERRL, EOMI; no facial palsy; no dysarthria Skin- warm & dry (1) Fracture of right shoulder Encounter type: initial encounter Fracture type: closed Qualified Code(s): S42.91XA - Fracture of right shoulder girdle, part unspecified, initial encounter for closed fracture (2) Diverticulitis of large intestine with abscess Diverticulitis bleeding: without bleeding Qualified Code(s): K57.20 - Diverticulitis of large intestine with perforation and abscess without bleeding
[2018-12-07] MEDS: D5W AND NSS 1,000 ML IV SCH ×3 (04:59→21:50)
[2018-12-07] MEDS: HEPARIN SOD 5,000 UNIT/0.5 ML VIAL SQ SCH (05:00)
[2018-12-07] MEDS: PIPERACILLIN/TAZOBACTAM 3.375 GM in DEXTROSE 5% 100 ML IV SCH ×2 (07:10→15:39)
[2018-12-07 09:28] LABS: Basophils # (auto) 0.01 K/uL (0-0.2); Basophils % (auto) 0.2 %; Eosinophils # (auto) 0.06 K/uL (0-0.5); Eosinophils % (auto) 0.9 %; Hematocrit (blood only) 35.7 % (37-47); Hemoglobin 11.8 g/dL (12.0-16.0); Immature Granulocytes # (auto) 0.02 K/uL (0.00-0.02); Immature Granulocytes % (auto) 0.3 %; Lymphocytes # (auto) 1.73 K/uL (1.2-3.4); Lymphocytes % (auto) 26.1 %; Mean Corpuscular Hgb Conc 33.1 g/dL (32-36); Mean Corpuscular Volume 92.2 fL (80-100); Mean Platelet Volume 10.4 fL (7.4-10.4); Monocytes # (auto) 0.36 K/uL (0.11-0.59); Monocytes % (auto) 5.4 %; Neutrophils # (auto) 4.46 K/uL (1.4-6.5); Neutrophils % (auto) 67.1 %; Platelet Count 208 K/uL (130-400); RDW Coefficient of Variation 13.9 % (11.5-14.5); RDW Standard Deviation 46.9 fL (36.4-46.3); Red Blood Count 3.87 M/uL (4.2-5.4); White Blood Count 6.64 K/uL (4.8-10.8)
--- NOTE | 2018-12-07 09:33 | Surgery Progress Note ---
Date of Service December 07, 2018 Assessment & Plan (1) Diverticulitis of large intestine with abscess: complicated diverticulitis with peridiverticular abscess - vitals stable, afebrile - leukocytosis resolved (am labs still pending) - persistent LLQ abdominal pain now LUQ abdominal pain, pain after bowel movement - + rectal bleeding - abdomen soft, no peritonitis, tender in LLQ and LUQ on mild palpation with guarding Plan: Repeat CT scan of abd and pelvis with PO and IV Contrast Hold Heparin May have ice chips/sips Continue conservative management: IV fluids, IV Abx, IV pain management prn, IV Zofran prn nausea Encourage OOB to chair and ambulate Continue medical management Dr. Broussard has seen and examined pt, agrees with above Subjective "not feeling so well" abdominal pain increasing now after bowel movement this morning Rectal bleeding, noticed bright red blood on toilet paper after bowel movement left arm pain (IV infiltrated) no nausea or vomiting no appetite Physical Exam Vital Signs (Past 24 Hours): Last Vital Signs Temp 36.9 C 12/07/18 07:45 Pulse 52 L 12/07/18 07:45 Resp 16 12/07/18 07:45 BP 123/81 12/07/18 07:45 Pulse Ox 96 12/07/18 07:45 Constitutional: WD/WN, vitals as above + acute distress (mild) and + obese; not ill appearing Respiratory: no respiratory distress Gastrointestinal (Abdomen): Inspection/Auscultation: normal bowel sounds; abdomen not distended Percussion/Palpation: + abdomen tender (LLQ and LUQ), + guarding (LLQ and LUQ) and abdomen soft; abdomen not rigid Skin: no rashes, warm and dry Psychiatric: A+Ox3, euthymic affect Results & Data Laboratory Results 12/07/18 12/07/18 12/06/18 Range/Units 08:45 08:45 16:08 WBC 6.64 (4.8-10.8) K/uL RBC 3.87 L (4.2-5.4) M/uL Hgb 11.8 L (12.0-16.0) g/dL Hct 35.7 L (37-47) % MCV 92.2 (80-100) fL MCH 30.5 (25-34) pg MCHC 33.1 (32-36) g/dL RDW Std Deviation 46.9 H (36.4-46.3) fL RDW Coeff of Destiny 13.9 (11.5-14.5) % Plt Count 208 (130-400) K/uL MPV 10.4 (7.4-10.4) fL Immature Gran % (Auto) 0.3 % Neut % (Auto) 67.1 % Lymph % (Auto) 26.1 % [place] % (Auto) 5.4 % Eos % (Auto) 0.9 % Baso % (Auto) 0.2 % Immature Gran # (Auto) 0.02 (0.00-0.02) K/uL Neut # (Auto) 4.46 (1.4-6.5) K/uL Lymph # (Auto) 1.73 (1.2-3.4) K/uL [place] # (Auto) 0.36 (0.11-0.59) K/uL Eos # (Auto) 0.06 (0-0.5) K/uL Baso # (Auto) 0.01 (0-0.2) K/uL Sodium Pending Potassium Pending Chloride Pending Carbon Dioxide Pending Anion Gap Pending BUN Pending Creatinine Pending Est Cr Clr Drug Dosing Pending Est GFR ( Amer) Pending Est GFR (Non-Af Amer) Pending BUN/Creatinine Ratio Pending Glucose Pending Calcium Pending Stl C. diff Tox B Gene Neg Cdiff Tox B Gene (Neg) (1) Diverticulitis of large intestine with abscess Diverticulitis bleeding: without bleeding Qualified Code(s): K57.20 - Diverticulitis of large intestine with perforation and abscess without bleeding
[2018-12-07 09:51] LABS: BUN Creatinine Ratio 5.4 (10-20); Calcium 7.8 mg/dl (8.5-10.1); Est GFR (African American) 75.7; Est GFR (Non-African American) 65.3; Potassium 3.6 mmol/L (3.5-5.1)
[2018-12-07] MEDS ORDERED: IOVERSOL 100ml IV PRN (12:05)
--- NOTE | 2018-12-07 12:19 | CT Scan Report ---
CT abd pelvis oral and IV con CLINICAL HISTORY: diverticulitis with abscess, persistent pain COMPARISON STUDY: 12/04/2018 TECHNIQUE: Patient was scanned in a dynamic helical fashion during intravenous administration of 94 c c of Optiray 320. A dose lowering technique was utilized adhering to the principles of ALARA. CT DOSE: 1160.89 mGy.cm FINDINGS: Lower chest: There is evidence for interstitial edema. There are small bilateral pleural effusions. Liver: There are few subcentimeter hepatic hypodensities which remain similar to the preceding study. There is no significant ductal dilatation. Gallbladder: Unremarkable. Spleen: The spleen remains lobulated and mildly enlarged measuring 13 cm. Pancreas: Unremarkable. Adrenal glands: Unremarkable. Kidneys: There is symmetric renal cortical enhancement. The kidneys are normal in size without hydron ephrosis. Bowel: There are no transition zones indicate bowel obstruction. There is no evidence of acute append icitis. There is improving sigmoid diverticulitis. There is interval decrease in the size of the carlos diverticular abscess which measures 28 mm in long axis. Peritoneum: There is no intraperitoneal free air or abdominal ascites. There is a tiny fat-containing umbilical hernia. Vasculature: The abdominal aorta is normal in course and caliber. Adenopathy: None. Pelvic viscera: The uterus is surgically absent. Skeletal structures: No destructive osseous lesions are seen. IMPRESSION: 1. No evidence of bowel obstruction. No evidence of free air 2. Improving sigmoid diverticulitis with interval decrease in the size of the peridiverticular absces s 3. Interval development of small bilateral pleural effusions and interstitial pulmonary edema Electronically signed by: Kenan Ji M.D. 12/07/2018 12:18 PM
--- NOTE | 2018-12-07 21:31 | Hospitalist Progress Note ---
Date of Service December 07, 2018 Assessment & Plan (1) Diverticulitis of large intestine with abscess: CT abd/pelvis showed sigmoid diverticulitis with a 5.3 cm peridiverticular abscess Elevated WBC and procalcitonin On IV zosyn Surgery on board, recommended conservative management Repeat CT abd/pelvis showed Improving sigmoid diverticulitis with interval decrease in the size of the peridiverticular abscess Continue Bowel rest Will start on clear liquid diet in am Decrease IVF today for now (2) Pulmonary edema: CT abd/pelvis showed Interval development of small bilateral pleural effusions and interstitial pulmonary edema saturated well on RA IVF decreased now Will hold during the optical assistant closely (3) Nausea & vomiting: resolved (4) Leukocytosis: resolved (5) Fracture of right shoulder: pain control Stable (6) DVT prophylaxis: SCD for now (In case if pt needs to go for procedure) Pt ambulates CODE STATUS FULL CODE Disposition Will discharge once medically stable Subjective Pt was seen and examined Lying in bed with no distress Pt said that she feels much better today She said that she has been walking in the hallway Pain significantly improves Denies any chest pain, palpitation and SOB Physical Exam Vital Signs (Past 24 Hours): Last Vital Signs Temp 36.4 C L 12/07/18 15:12 Pulse 64 12/07/18 15:12 Resp 16 12/07/18 15:12 BP 156/84 H 12/07/18 15:44 Pulse Ox 94 12/07/18 15:12 Physical Exam: General- No acute distress Head- atraumatic Eyes- PERRL, EOMI, ENT- oropharynx clear Neck- supple, no JVD Lungs- No wheezing Heart- regular rhythm; no murmur Abdomen- +LLQ abdominal tenderness Extremities- no calf tenderness Neuro- alert, oriented x 3; PERRL, EOMI; no facial palsy; no dysarthria Skin- warm & dry (1) Fracture of right shoulder Encounter type: initial encounter Fracture type: closed Qualified Code(s): S42.91XA - Fracture of right shoulder girdle, part unspecified, initial encounter for closed fracture (2) Diverticulitis of large intestine with abscess Diverticulitis bleeding: without bleeding Qualified Code(s): K57.20 - Diverticulitis of large intestine with perforation and abscess without bleeding
[2018-12-08] MEDS: PIPERACILLIN/TAZOBACTAM 3.375 GM in DEXTROSE 5% 100 ML IV SCH ×4 (01:14→23:14)
[2018-12-08 04:58] LABS: BUN Creatinine Ratio 3.7 (10-20); Calcium 7.5 mg/dl (8.5-10.1); Creatinine Clr Calc Pharmacy 63.3 ml/min; Est GFR (African American) 77.8; Est GFR (Non-African American) 67.1; Potassium 3.2 mmol/L (3.5-5.1)
[2018-12-08] MEDS ORDERED: POTASSIUM CHLORIDE 20 MEQ TABCR PO STA (08:19)
--- NOTE | 2018-12-08 09:11 | Surgery Progress Note ---
Date of Service December 08, 2018 Assessment & Plan (1) Diverticulitis of large intestine with abscess: complicated diverticulitis with peridiverticular abscess - vitals stable, afebrile - leukocytosis resolved - persistent LLQ abdominal pain improving, no peritonitis - Repeat CT scan on 12/07/18 showing decreased size of peridiverticular abscess measuring 2.8 cm (5.3 cm previously) Plan: Advance diet to clear liquids Continue conservative management: IV fluids, IV Abx, IV pain management prn, IV Zofran prn nausea Encourage OOB to chair and ambulate SCDs for DVT prophylaxis, Heparin HELD given rectal bleeding Continue medical management Dr. Leiva covering this weekend Dr. Broussard has seen and examined pt, agrees with above Subjective "had a rough night. IV failed again in her hand and took them an hour to get another IV Site. Little sleep last night" Abdominal pain okay, still present but not increased + liquid bowel movements no nausea or vomiting tolerating chips Physical Exam Vital Signs (Past 24 Hours): Last Vital Signs Temp 36.6 C 12/08/18 07:47 Pulse 62 12/08/18 07:47 Resp 15 12/08/18 07:47 BP 126/64 12/08/18 07:47 Pulse Ox 93 12/08/18 07:47 Constitutional: WD/WN, vitals as above no acute distress Respiratory: no respiratory distress Gastrointestinal (Abdomen): Inspection/Auscultation: abdomen normal to inspection; abdomen not distended Percussion/Palpation: + abdomen tender (LLQ on deep palpation, no guarding or rebound) and abdomen soft; no guarding and abdomen not rigid Skin: no rashes, warm and dry Psychiatric: A+Ox3, euthymic affect Results & Data Laboratory Results 12/08/18 12/07/18 12/07/18 Range/Units 04:25 08:45 08:45 WBC 6.64 (4.8-10.8) K/uL RBC 3.87 L (4.2-5.4) M/uL Hgb 11.8 L (12.0-16.0) g/dL Hct 35.7 L (37-47) % MCV 92.2 (80-100) fL MCH 30.5 (25-34) pg MCHC 33.1 (32-36) g/dL RDW Std Deviation 46.9 H (36.4-46.3) fL RDW Coeff of Destiny 13.9 (11.5-14.5) % Plt Count 208 (130-400) K/uL MPV 10.4 (7.4-10.4) fL Immature Gran % (Auto) 0.3 % Neut % (Auto) 67.1 % Lymph % (Auto) 26.1 % [place] % (Auto) 5.4 % Eos % (Auto) 0.9 % Baso % (Auto) 0.2 % Immature Gran # (Auto) 0.02 (0.00-0.02) K/uL Neut # (Auto) 4.46 (1.4-6.5) K/uL Lymph # (Auto) 1.73 (1.2-3.4) K/uL [place] # (Auto) 0.36 (0.11-0.59) K/uL Eos # (Auto) 0.06 (0-0.5) K/uL Baso # (Auto) 0.01 (0-0.2) K/uL Sodium 143 146 H (136-145) mmol/L Potassium 3.2 L 3.6 (3.5-5.1) mmol/L Chloride 110 H 114 H (98-107) mmol/L Carbon Dioxide 26 25 (21-32) mmol/L Anion Gap 7.0 7.0 (3-11) BUN 3 L 5 L (7-18) mg/dl Creatinine 0.90 0.92 (0.6-1.2) mg/dl Est Cr Clr Drug Dosing 63.3 62.0 ml/min Est GFR ( Amer) 77.8 75.7 Est GFR (Non-Af Amer) 67.1 65.3 BUN/Creatinine Ratio 3.7 L 5.4 L (10-20) Glucose 93 109 H (70-99) mg/dl Calcium 7.5 L 7.8 L (8.5-10.1) mg/dl (1) Diverticulitis of large intestine with abscess Diverticulitis bleeding: without bleeding Qualified Code(s): K57.20 - Diverticulitis of large intestine with perforation and abscess without bleeding
--- NOTE | 2018-12-08 19:40 | Hospitalist Progress Note ---
Date of Service December 08, 2018 Assessment & Plan (1) Diverticulitis of large intestine with abscess: CT abd/pelvis showed sigmoid diverticulitis with a 5.3 cm peridiverticular abscess Elevated WBC and procalcitonin Continue IV zosyn Surgery on board, recommended conservative management Repeat CT abd/pelvis showed Improving sigmoid diverticulitis with interval decrease in the size of the peridiverticular abscess Continue Bowel rest Tolerated clear liquid diet Will start back on gentle IV fluid (2) Pulmonary edema: CT abd/pelvis showed Interval development of small bilateral pleural effusions and interstitial pulmonary edema saturated well on RA IVF was d/c due to pulmonary edema seen on CT Monitor closely (3) Nausea & vomiting: resolved (4) Leukocytosis: resolved (5) Fracture of right shoulder: pain control Stable (6) DVT prophylaxis: SCD for now (In case if pt needs to go for procedure) Pt ambulates CODE STATUS FULL CODE Disposition Will discharge once medically stable Subjective Pt was seen and examined Lying in bed with no distress Pt said that her abdominal pain improves Tolerated clear liquid diet Denies any chest pain, palpitation and SOB Physical Exam Vital Signs (Past 24 Hours): Last Vital Signs Temp 36.8 C 12/08/18 15:38 Pulse 65 12/08/18 15:38 Resp 16 12/08/18 15:38 BP 154/80 H 12/08/18 15:38 Pulse Ox 96 12/08/18 15:38 Physical Exam: General- No acute distress Head- atraumatic Eyes- PERRL, EOMI, ENT- oropharynx clear Neck- supple, no JVD Lungs- No wheezing Heart- regular rhythm; no murmur Abdomen- +mild LLQ abdominal tenderness Extremities- no calf tenderness Neuro- alert, oriented x 3; PERRL, EOMI; no facial palsy; no dysarthria Skin- warm & dry (1) Fracture of right shoulder Encounter type: initial encounter Fracture type: closed Qualified Code(s): S42.91XA - Fracture of right shoulder girdle, part unspecified, initial encounter for closed fracture (2) Diverticulitis of large intestine with abscess Diverticulitis bleeding: without bleeding Qualified Code(s): K57.20 - Diverticulitis of large intestine with perforation and abscess without bleeding
[2018-12-09 07:58] LABS: BUN Creatinine Ratio 4.2 (10-20); Calcium 7.8 mg/dl (8.5-10.1); Creatinine Clr Calc Pharmacy 62.7 ml/min; Est GFR (African American) 76.7; Est GFR (Non-African American) 66.2; Potassium 3.4 mmol/L (3.5-5.1)
[2018-12-09] MEDS: PIPERACILLIN/TAZOBACTAM 3.375 GM in DEXTROSE 5% 100 ML IV SCH ×2 (08:35→15:25)
[2018-12-09] MEDS ORDERED: POTASSIUM CHLORIDE 10 MEQ TABCR PO STA (09:20)
--- NOTE | 2018-12-09 12:19 | Surgery Progress Note ---
Date of Service December 09, 2018 Assessment & Plan (1) Diverticulitis of large intestine with abscess: clinically doing well continue antibiotics will slowly advance diet. Subjective feeling better today. feels like she may have turned the corner. Physical Exam Vital Signs (Past 24 Hours): Last Vital Signs Temp 36.7 C 12/09/18 08:26 Pulse 66 12/09/18 08:26 Resp 18 12/09/18 08:26 BP 139/84 12/09/18 08:26 Pulse Ox 96 12/09/18 08:26 Physical Exam: alert. nad abd: soft. very mild LLQ/suprapubic TTP with deep palpation. no peritoneal signs. (1) Diverticulitis of large intestine with abscess Diverticulitis bleeding: without bleeding Qualified Code(s): K57.20 - Diverticulitis of large intestine with perforation and abscess without bleeding
--- NOTE | 2018-12-09 20:07 | Hospitalist Progress Note ---
Date of Service December 09, 2018 Assessment & Plan (1) Diverticulitis of large intestine with abscess: CT abd/pelvis showed sigmoid diverticulitis with a 5.3 cm peridiverticular abscess Elevated WBC and procalcitonin Continue IV zosyn Surgery on board, recommended conservative management Repeat CT abd/pelvis showed Improving sigmoid diverticulitis with interval decrease in the size of the peridiverticular abscess Continue Bowel rest starting on full liquid diet (2) Pulmonary edema: CT abd/pelvis showed Interval development of small bilateral pleural effusions and interstitial pulmonary edema saturated well on RA IVF was d/c due to pulmonary edema seen on CT Monitor closely (3) Nausea & vomiting: resolved (4) Leukocytosis: resolved (5) Fracture of right shoulder: pain control Stable (6) DVT prophylaxis: SCD for now (In case if pt needs to go for procedure) Pt ambulates CODE STATUS FULL CODE Disposition Will discharge once medically stable Subjective Pt was seen and examined Lying in bed with no distress Denies any new complaints Physical Exam Vital Signs (Past 24 Hours): Last Vital Signs Temp 36.5 C 12/09/18 14:59 Pulse 51 L 12/09/18 14:59 Resp 20 12/09/18 14:59 BP 155/96 H 12/09/18 14:59 Pulse Ox 93 12/09/18 14:59 Physical Exam: General- No acute distress Head- atraumatic Eyes- PERRL, EOMI, ENT- oropharynx clear Neck- supple, no JVD Lungs- No wheezing Heart- regular rhythm; no murmur Abdomen- +mild LLQ abdominal tenderness Extremities- no calf tenderness Neuro- alert, oriented x 3; PERRL, EOMI; no facial palsy; no dysarthria Skin- warm & dry (1) Fracture of right shoulder Encounter type: initial encounter Fracture type: closed Qualified Code(s): S42.91XA - Fracture of right shoulder girdle, part unspecified, initial encounter for closed fracture (2) Diverticulitis of large intestine with abscess Diverticulitis bleeding: without bleeding Qualified Code(s): K57.20 - Diverticulitis of large intestine with perforation and abscess without bleeding
[2018-12-10] MEDS: PIPERACILLIN/TAZOBACTAM 3.375 GM in DEXTROSE 5% 100 ML IV SCH ×4 (01:09→23:55)
--- NOTE | 2018-12-10 14:01 | Surgery Progress Note ---
Date of Service December 10, 2018 Assessment & Plan (1) Diverticulitis of large intestine with abscess: continues to improve clinically awaiting on return of bowel fx would keep on full liquids until bm continue antibiotics Subjective feeling ok/no new complaints. no bm yet. pain controlled. Physical Exam Vital Signs (Past 24 Hours): Last Vital Signs Temp 36.8 C 12/10/18 07:37 Pulse 65 12/10/18 07:37 Resp 18 12/10/18 07:37 BP 132/76 12/10/18 07:37 Pulse Ox 95 12/10/18 07:37 Physical Exam: alert. nad abd: soft. nd. mild LLQ ttp. no g/r/r (1) Diverticulitis of large intestine with abscess Diverticulitis bleeding: without bleeding Qualified Code(s): K57.20 - Diverticulitis of large intestine with perforation and abscess without bleeding
--- NOTE | 2018-12-10 17:38 | Hospitalist Progress Note ---
Date of Service December 10, 2018 Assessment & Plan (1) Diverticulitis of large intestine with abscess: CT abd/pelvis showed sigmoid diverticulitis with a 5.3 cm peridiverticular abscess Elevated WBC and procalcitonin Continue IV zosyn Surgery on board, recommended conservative management Repeat CT abd/pelvis showed Improving sigmoid diverticulitis with interval decrease in the size of the peridiverticular abscess Continue full liquid diet Has not had a BM yet Continue monitor (2) Pulmonary edema: CT abd/pelvis showed Interval development of small bilateral pleural effusions and interstitial pulmonary edema saturated well on RA IVF was d/c due to pulmonary edema seen on CT Monitor closely (3) Nausea & vomiting: resolved (4) Leukocytosis: resolved (5) Fracture of right shoulder: pain control Stable (6) DVT prophylaxis: SCD for now (In case if pt needs to go for procedure) Pt ambulates CODE STATUS FULL CODE Disposition Will discharge once medically stable Subjective Pt was seen and examined Lying in bed with non distress Pt said that she feels much better Tolerated full liquid diet She has not had a BM yet She said that her abdominal pain much better denies any chest pain, palpitation and SOB Physical Exam Vital Signs (Past 24 Hours): Last Vital Signs Temp 36.7 C 12/10/18 15:13 Pulse 76 12/10/18 15:13 Resp 17 12/10/18 15:13 BP 120/76 12/10/18 15:13 Pulse Ox 93 12/10/18 15:13 Physical Exam: General- No acute distress Head- atraumatic Eyes- PERRL, EOMI, ENT- oropharynx clear Neck- supple, no JVD Lungs- No wheezing Heart- regular rhythm; no murmur Abdomen- +mild LLQ abdominal tenderness Extremities- no calf tenderness Neuro- alert, oriented x 3; PERRL, EOMI; no facial palsy; no dysarthria Skin- warm & dry (1) Fracture of right shoulder Encounter type: initial encounter Fracture type: closed Qualified Code(s): S42.91XA - Fracture of right shoulder girdle, part unspecified, initial encounter for closed fracture (2) Diverticulitis of large intestine with abscess Diverticulitis bleeding: without bleeding Qualified Code(s): K57.20 - Diverticulitis of large intestine with perforation and abscess without bleeding
[2018-12-11] MEDS: PIPERACILLIN/TAZOBACTAM 3.375 GM in DEXTROSE 5% 100 ML IV SCH ×2 (08:24→15:35)
[2018-12-11 10:33] LABS: BUN Creatinine Ratio 6.4 (10-20); Calcium 8.5 mg/dl (8.5-10.1); Creatinine Clr Calc Pharmacy 46.7 ml/min; Est GFR (African American) 53.8; Est GFR (Non-African American) 46.5; Potassium 3.9 mmol/L (3.5-5.1)
--- NOTE | 2018-12-11 20:55 | Hospitalist Progress Note ---
Date of Service December 11, 2018 Assessment & Plan (1) Diverticulitis of large intestine with abscess: CT abd/pelvis showed sigmoid diverticulitis with a 5.3 cm peridiverticular abscess Elevated WBC and procalcitonin Continue IV zosyn Surgery on board, recommended conservative management Repeat CT abd/pelvis showed Improving sigmoid diverticulitis with interval decrease in the size of the peridiverticular abscess Continue full liquid diet Has not had a BM yet Will advance to soft diet in am Continue monitor (2) Pulmonary edema: CT abd/pelvis showed Interval development of small bilateral pleural effusions and interstitial pulmonary edema saturated well on RA IVF was d/c due to pulmonary edema seen on CT Monitor closely (3) Nausea & vomiting: resolved (4) Leukocytosis: resolved (5) Fracture of right shoulder: pain control Stable (6) DVT prophylaxis: heparin was d/c due to bleeding from the IV access SCD Pt ambulates CODE STATUS FULL CODE Disposition Will discharge once medically stable Subjective Pt was seen and examined Lying in bed with no distress She said that she does not have any abdominal pain No BM yet Denies any chest pain, palpitation and SOB Physical Exam Vital Signs (Past 24 Hours): Last Vital Signs Temp 36.6 C 12/11/18 15:21 Pulse 69 12/11/18 15:21 Resp 18 12/11/18 15:21 BP 123/81 12/11/18 15:21 Pulse Ox 94 12/11/18 15:21 Physical Exam: General- No acute distress Head- atraumatic Eyes- PERRL, EOMI, ENT- oropharynx clear Neck- supple, no JVD Lungs- No wheezing Heart- regular rhythm; no murmur Abdomen- +BS, No tenderness Extremities- no calf tenderness Neuro- alert, oriented x 3; PERRL, EOMI; no facial palsy; no dysarthria Skin- warm & dry (1) Fracture of right shoulder Encounter type: initial encounter Fracture type: closed Qualified Code(s): S42.91XA - Fracture of right shoulder girdle, part unspecified, initial encounter for closed fracture (2) Diverticulitis of large intestine with abscess Diverticulitis bleeding: without bleeding Qualified Code(s): K57.20 - Diverticulitis of large intestine with perforation and abscess without bleeding
[2018-12-12] MEDS: PIPERACILLIN/TAZOBACTAM 3.375 GM in DEXTROSE 5% 100 ML IV SCH ×3 (01:19→15:30)
[2018-12-12 07:13] LABS: Creatinine Clr Calc Pharmacy 54.8 ml/min; Est GFR (African American) 65.3; Est GFR (Non-African American) 56.3
--- NOTE | 2018-12-12 16:42 | Surgery Progress Note ---
Date of Service December 12, 2018 Assessment & Plan (1) Diverticulitis of large intestine with abscess: complicated diverticulitis with peridiverticular abscess - vitals stable, afebrile - leukocytosis resolved - abdominal pain resolved - Repeat CT scan on 12/07/18 showing decreased size of peridiverticular abscess measuring 2.8 cm (5.3 cm previously) Plan: Okay from surgical standpoint for discharge Recommend total of 14 days of Antibiotics (tomorrow is day 10 of IV abx) She will need follow-up with trimmer sorter for colonoscopy in 6-8 weeks Recommend low fiber diet in meantime Our services signing off, please call with questions or concerns Dr. Broussard has seen and examined pt, agrees with above Subjective no abdominal pain tolerated regular diet today no nausea or vomiting Physical Exam Vital Signs (Past 24 Hours): Last Vital Signs Temp 36.3 C L 12/12/18 06:57 Pulse 70 12/12/18 06:57 Resp 18 12/12/18 06:57 BP 119/75 12/12/18 06:57 Pulse Ox 97 12/12/18 06:57 Constitutional: WD/WN, vitals as above no acute distress and not ill appearing Respiratory: no respiratory distress Gastrointestinal (Abdomen): Inspection/Auscultation: abdomen not distended Percussion/Palpation: abdomen soft; abdomen nontender, no guarding and abdomen not rigid Skin: no rashes, warm and dry Psychiatric: A+Ox3, euthymic affect Results & Data Laboratory Results 12/12/18 Range/Units 06:14 Creatinine 1.04 (0.6-1.2) mg/dl Est Cr Clr Drug Dosing 54.8 ml/min Est GFR ( Amer) 65.3 Est GFR (Non-Af Amer) 56.3 (1) Diverticulitis of large intestine with abscess Diverticulitis bleeding: without bleeding Qualified Code(s): K57.20 - Diverticulitis of large intestine with perforation and abscess without bleeding
--- NOTE | 2018-12-12 19:33 | Hospitalist Progress Note ---
Date of Service December 12, 2018 Assessment & Plan (1) Diverticulitis of large intestine with abscess: CT abd/pelvis showed sigmoid diverticulitis with a 5.3 cm peridiverticular abscess Elevated WBC and procalcitonin Continue IV zosyn Surgery on board, recommended conservative management Repeat CT abd/pelvis showed Improving sigmoid diverticulitis with interval decrease in the size of the peridiverticular abscess Had a small BM today Diet advance to soft Continue monitor (2) Pulmonary edema: CT abd/pelvis showed Interval development of small bilateral pleural effusions and interstitial pulmonary edema saturated well on RA IVF was d/c due to pulmonary edema seen on CT Monitor closely (3) Nausea & vomiting: resolved (4) Leukocytosis: resolved (5) Fracture of right shoulder: pain control Stable (6) DVT prophylaxis: heparin was d/c due to bleeding from the IV access SCD Pt ambulates CODE STATUS FULL CODE Disposition Will discharge once medically stable Subjective Pt was seen and examined Lying in bed with no distress Pt said that she had a small BM today Denies any abdominal pain Physical Exam Vital Signs (Past 24 Hours): Last Vital Signs Temp 36.3 C L 12/12/18 06:57 Pulse 70 12/12/18 06:57 Resp 18 12/12/18 06:57 BP 119/75 12/12/18 06:57 Pulse Ox 97 12/12/18 06:57 Physical Exam: General- No acute distress Head- atraumatic Eyes- PERRL, EOMI, ENT- oropharynx clear Neck- supple, no JVD Lungs- No wheezing Heart- regular rhythm; no murmur Abdomen- +BS, No tenderness Extremities- no calf tenderness Neuro- alert, oriented x 3; PERRL, EOMI; no facial palsy; no dysarthria Skin- warm & dry (1) Fracture of right shoulder Encounter type: initial encounter Fracture type: closed Qualified Code(s): S42.91XA - Fracture of right shoulder girdle, part unspecified, initial encounter for closed fracture (2) Diverticulitis of large intestine with abscess Diverticulitis bleeding: without bleeding Qualified Code(s): K57.20 - Diverticulitis of large intestine with perforation and abscess without bleeding
[2018-12-13] MEDS: PIPERACILLIN/TAZOBACTAM 3.375 GM in DEXTROSE 5% 100 ML IV SCH ×4 (00:08→23:40)
[2018-12-13 07:12] LABS: Calcium 8.4 mg/dl (8.5-10.1); Creatinine Clr Calc Pharmacy 51.8 ml/min; Est GFR (Non-African American) 52.6; Magnesium 2.4 mg/dl (1.8-2.4); Potassium 4.1 mmol/L (3.5-5.1)
--- NOTE | 2018-12-13 20:18 | Hospitalist Progress Note ---
Date of Service December 13, 2018 Assessment & Plan (1) Diverticulitis of large intestine with abscess: Presented with sigmoid diverticulitis complicated by abscess. General Surgery consulted. 14 days course of IV antibiotics recommended. Receiving IV piperacillin / tazobactam with improvement- today is day # 10 / 14. (2) Sepsis: Met criteria for sepsis per current CMS critieria (tachycardia, leukocytosis). Source = diverticultitis. Lactate 1.5. Sys BP's > 90. Improved. (3) DVT prophylaxis: SQ heparin. Ambulating. (4) Discharge planning issues: Anticipated discharge to home. Family Medicine follow-up with Dr. Castano. Subjective Recheck for diverticulitis. Pt seen in her room around 1540. Feels better. No fever, chills. Abdominal pain improved. No nausea, vomiting, diarrhea, hematochezia. Review of Systems No chest pain. No cough or SOB. No urinary symptoms. Ambulating in hallway. Physical Exam Vital Signs (Past 24 Hours): Last Vital Signs Temp 36.5 C 12/13/18 15:01 Pulse 80 12/13/18 15:01 Resp 18 12/13/18 15:01 BP 129/76 12/13/18 15:01 Pulse Ox 94 12/13/18 15:01 Constitutional: no acute distress Respiratory: no respiratory distress Auscultation: lungs clear to auscultation bilaterally Cardiovascular: Rate/Rhythm: regular rate and regular rhythm Heart Sounds: no gallop, no murmur and no cardiac rub Vessels: no JVD Extremities: no calf tenderness and no edema Gastrointestinal (Abdomen): Inspection/Auscultation: normal bowel sounds; abdomen not distended Percussion/Palpation: + abdomen tender (mild LLQ without rebound or guarding) Skin: no rashes, warm and dry Psychiatric: Orientation: alert and oriented x 3 Results & Data Laboratory Results Laboratory Results - last 24 hr 12/13/18 06:15 Sodium 140 Potassium 4.1 Chloride 106 Carbon Dioxide 28 Anion Gap 6.0 BUN 16 D Creatinine 1.10 Est Cr Clr Drug Dosing 51.8 Est GFR ( Amer) 61.0 Est GFR (Non-Af Amer) 52.6 BUN/Creatinine Ratio 15.0 Glucose 108 H Calcium 8.4 L Magnesium 2.4 (1) Diverticulitis of large intestine with abscess Diverticulitis bleeding: without bleeding Qualified Code(s): K57.20 - Diverticulitis of large intestine with perforation and abscess without bleeding
[2018-12-14 06:37] LABS: Hematocrit (blood only) 41.4 % (37-47); Hemoglobin 13.8 g/dL (12.0-16.0); Mean Corpuscular Hgb Conc 33.3 g/dL (32-36); Mean Corpuscular Volume 91.8 fL (80-100); Platelet Count 284 K/uL (130-400); RDW Standard Deviation 46.8 fL (36.4-46.3); Red Blood Count 4.51 M/uL (4.2-5.4); White Blood Count 9.52 K/uL (4.8-10.8)
[2018-12-14 07:07] LABS: BUN Creatinine Ratio 16.6 (10-20); Calcium 8.3 mg/dl (8.5-10.1); Creatinine Clr Calc Pharmacy 51.8 ml/min; Est GFR (Non-African American) 52.6; Potassium 4.3 mmol/L (3.5-5.1)
[2018-12-14] MEDS: PIPERACILLIN/TAZOBACTAM 3.375 GM in DEXTROSE 5% 100 ML IV SCH ×2 (08:44→17:00)
--- NOTE | 2018-12-14 23:02 | Hospitalist Progress Note ---
Date of Service December 14, 2018 Assessment & Plan (1) Diverticulitis of large intestine with abscess: Presented with sigmoid diverticulitis complicated by abscess. General Surgery consulted. 14 days course of IV antibiotics recommended. Receiving IV piperacillin / tazobactam with improvement- today is day # 11 / 14. (2) Sepsis: Met criteria for sepsis per current CMS critieria (tachycardia, leukocytosis). Source = diverticultitis. Lactate 1.5. Sys BP's > 90. Improved. (3) DVT prophylaxis: SQ heparin. Ambulating. (4) Discharge planning issues: Anticipated discharge to home. Family Medicine follow-up with Dr. Castano. Subjective Recheck for diverticulitis. Pt seen in her room around 1720. Doing well. No fever. Only mild LLQ pain. Moved bowels- no diarrhea or hematochezia. No N/V. No chest pain. No cough or SOB. No urinary symptoms. Review of Systems Other (as noted above) Physical Exam Vital Signs (Past 24 Hours): Last Vital Signs Temp 36.9 C 12/14/18 15:09 Pulse 72 12/14/18 15:09 Resp 20 12/14/18 15:09 BP 122/64 12/14/18 15:09 Pulse Ox 93 12/14/18 15:09 Constitutional: no acute distress Respiratory: no respiratory distress Auscultation: lungs clear to auscultation bilaterally Cardiovascular: Rate/Rhythm: regular rate and regular rhythm Heart Sounds: no gallop, no murmur and no cardiac rub Vessels: no JVD Extremities: no calf tenderness and no edema Gastrointestinal (Abdomen): Inspection/Auscultation: normal bowel sounds; abdomen not distended Percussion/Palpation: + abdomen tender (mild LLQ wi thout rebound or guarding) Skin: no rashes, warm and dry Psychiatric: Orientation: alert and oriented x 3 Results & Data Laboratory Results Laboratory Results - last 24 hr 12/14/18 12/14/18 06:14 06:14 WBC 9.52 RBC 4.51 Hgb 13.8 Hct 41.4 MCV 91.8 MCH 30.6 MCHC 33.3 RDW Std Deviation 46.8 H RDW Coeff of Destiny 14.0 Plt Count 284 MPV 10.0 Sodium 138 Potassium 4.3 Chloride 106 Carbon Dioxide 26 Anion Gap 6.0 BUN 18 Creatinine 1.10 Est Cr Clr Drug Dosing 51.8 Est GFR ( Amer) 61.0 Est GFR (Non-Af Amer) 52.6 BUN/Creatinine Ratio 16.6 Glucose 112 H Calcium 8.3 L (1) Diverticulitis of large intestine with abscess Diverticulitis bleeding: without bleeding Qualified Code(s): K57.20 - Diverticulitis of large intestine with perforation and abscess without bleeding
[2018-12-15] MEDS: PIPERACILLIN/TAZOBACTAM 3.375 GM in DEXTROSE 5% 100 ML IV SCH ×3 (00:12→21:22)
--- NOTE | 2018-12-15 08:39 | Surgery Progress Note ---
Date of Service December 15, 2018 Assessment & Plan (1) Diverticulitis of large intestine with abscess: complicated diverticulitis with peridiverticular abscess - vitals stable, afebrile - leukocytosis resolved - abdominal pain resolved - Repeat CT scan on 12/07/18 showing decreased size of peridiverticular abscess measuring 2.8 cm (5.3 cm previously) Plan: Transition to oral abx today (IV site blew) should finish 14 day total course of antibiotics (both IV and oral) today will be 09/08 She will need follow-up with real estate coordinator for colonoscopy in 6-8 weeks Recommend low fiber diet in meantime Subjective had some pain in LLQ after bowel movement earlier today otherwise doing well, little to no abdominal pain throughout day tolerating soft diet without any abdominal pain passing flatus, no fever or chills Physical Exam Vital Signs (Past 24 Hours): Last Vital Signs Temp 36.4 C L 12/15/18 07:54 Pulse 66 12/15/18 07:54 Resp 20 12/15/18 07:54 BP 126/84 12/15/18 07:54 Pulse Ox 95 12/15/18 07:54 Constitutional: WD/WN, vitals as above no acute distress Respiratory: no respiratory distress Gastrointestinal (Abdomen): Inspection/Auscultation: abdomen normal to inspection; abdomen not distended Percussion/Palpation: + abdomen tender (LLQ on deep palpation) and abdomen soft; no guarding and abdomen not rigid Skin: no rashes, warm and dry Psychiatric: A+Ox3, euthymic affect (1) Diverticulitis of large intestine with abscess Diverticulitis bleeding: without bleeding Qualified Code(s): K57.20 - Div erticulitis of large intestine with perforation and abscess without bleeding
[2018-12-15] MEDS ORDERED: AMOXICILLIN/CLAVULANATE 875 MG TAB PO SCH ×3 (09:00→09:45)
[2018-12-15] MEDS ORDERED: ONDANSETRON 4 MG OD TAB PO PRN (12:53)
[2018-12-15] MEDS ORDERED: PIPERACILL/TAZOBAC CONSULT ACTIVE PRN (16:16)
[2018-12-15] MEDS ORDERED: PIPERACILLIN/TAZOBACTAM 3.375 GM in DEXTROSE 5% 100 ML IV ONE (16:45)
--- NOTE | 2018-12-15 22:12 | Hospitalist Progress Note ---
Date of Service December 15, 2018 Assessment & Plan (1) Diverticulitis of large intestine with abscess: Presented with sigmoid diverticulitis complicated by abscess. General Surgery consulted. 14 days course of antibiotics recommended. Did not tolerate oral therapy. Receiving IV piperacillin / tazobactam with improvement- today is day # 11 / 14. (2) Sepsis: Met criteria for sepsis per current CMS critieria (tachycardia, leukocytosis). Source = diverticultitis. Lactate 1.5. Sys BP's > 90. Improved. (3) DVT prophylaxis: SQ heparin. Ambulating. (4) Discharge planning issues: Anticipated discharge to home. Family Medicine follow-up with Dr. Castano. Subjective Recheck for diverticulitis. Pt seen in her room around 2100. Tried to convert to oral antibiotic therapy this morning with amoxicillin / clavulanic acid, but developed severe nausea that lasted for some time. Requested return to IV antibiotics. Better this evening. Nausea resolved. Minimal LLQ tenderness. No diarrhea or hematochezia. No chest pain. No cough or SOB. No urinary symptoms. Physical Exam Vital Signs (Past 24 Hours): Last Vital Signs Temp 36.6 C 12/15/18 15:43 Pulse 78 12/15/18 15:43 Resp 18 12/15/18 15:43 BP 139/71 12/15/18 15:43 Pulse Ox 98 12/15/18 15:43 Constitutional: no acute distress Respiratory: no respiratory distress Auscultation: lungs clear to auscultation bilaterally Cardiovascular: Rate/Rhythm: regular rate and regular rhythm Heart Sounds: no gallop, no murmur and no cardiac rub Vessels: no JVD Extremities: no calf tenderness and no edema Gastrointestinal (Abdomen): Inspection/Auscultation: normal bowel sounds; abdomen not distended Percussion/Palpation: + abdomen tender (mild LLQ without rebound or guarding) Skin: no rashes, warm and dry Psychiatric: Orientation: alert and oriented x 3 (1) Diverticulitis of large intestine with abscess Diverticulitis bleeding: without bleeding Qualified Code(s): K57.20 - Diverticulitis of large intestine with perforation and abscess without bleeding
[2018-12-16] MEDS: PIPERACILLIN/TAZOBACTAM 3.375 GM in DEXTROSE 5% 100 ML IV SCH ×3 (05:57→22:15)
--- NOTE | 2018-12-16 20:24 | Hospitalist Progress Note ---
Date of Service December 16, 2018 Assessment & Plan (1) Diverticulitis of large intestine with abscess: Presented with sigmoid diverticulitis complicated by abscess. General Surgery consulted. 14 days course of antibiotics recommended. Did not tolerate oral therapy. Receiving IV piperacillin / tazobactam with improvement- today is day # 13 / 14. (2) Sepsis: Met criteria for sepsis per current CMS critieria (tachycardia, leukocytosis). Source = diverticultitis. Lactate 1.5. Sys BP's > 90. Improved. (3) DVT prophylaxis: SQ heparin. Ambulating. (4) Discharge planning issues: Anticipated discharge to home. Family Medicine follow-up with Dr. Castano. Subjective Recheck for diverticulitis. Pt seen in her room around 1150. No fever. No further nausea. Less LLQ tenderness. No diarrhea or hematochezia. No chest pain. No cough or SOB. No urinary symptoms. Physical Exam Vital Signs (Past 24 Hours): Last Vital Signs Temp 36.8 C 12/16/18 15:45 Pulse 78 12/16/18 15:45 Resp 18 12/16/18 15:45 BP 128/66 12/16/18 15:45 Pulse Ox 95 12/16/18 15:45 Constitutional: no acute distress Respiratory: no respiratory distress Auscultation: lungs clear to auscultation bilaterally Cardiovascular: Rate/Rhythm: regular rate and regular rhythm Heart Sounds: no gallop, no murmur and no cardiac rub Vessels: no JVD Extremities: no calf tenderness and no edema Gastrointestinal (Abdomen): Inspection/Auscultation: normal bowel sounds; abdomen not distended Percussion/Palpation: + abdomen tender (mild LLQ without rebound or guarding) Skin: no rashes, warm and dry Psychiatric: Orientation: alert and oriented x 3 (1) Diverticulitis of large intestine with abscess Diverticulitis bleeding: without bleeding Qualified Code(s): K57.20 - Diverticulitis of large intestine with perforation and abscess without bleeding
[2018-12-17] MEDS: PIPERACILLIN/TAZOBACTAM 3.375 GM in DEXTROSE 5% 100 ML IV SCH ×2 (05:51→13:34)
[2018-12-17 08:05] LABS: Creatinine Clr Calc Pharmacy 61.3 ml/min; Est GFR (African American) 74.7; Est GFR (Non-African American) 64.5
--- NOTE | 2018-12-17 17:13 | Hospitalist Progress Note ---
Date of Service December 17, 2018 Assessment & Plan (1) Diverticulitis of large intestine with abscess: Presented with sigmoid diverticulitis complicated by abscess. Initial therapy consisted of bowel rest, IV antibiotics, analgesics. General Surgery consulted. 14 days course of antibiotics recommended. Repeat CT performed on 12/07/18 showed that the diverticular abscess decreased in size from 5.3 to 2.8 cm. Did not tolerate trial of oral therapy. Received IV piperacillin / tazobactam with improvement to complete 14 day course of therapy. Outpatient colonoscopy recommended in 6-8 weeks. (2) Sepsis: Met criteria for sepsis per current CMS critieria (tachycardia, leukocytosis). Source = diverticultitis. Blood cultures were obtained and broad-spectrum antibiotics were administered. Lactate 1.5. Sys BP's > 90. Improved. (3) DVT prophylaxis: Received SQ heparin. Ambulating. (4) Discharge planning issues: Discharge to home. Family Medicine follow-up with Dr. Castano. Subjective Recheck for diverticulitis. Pt seen in her room around 1150. No fever. No further nausea. No abdominal pain. No diarrhea or hematochezia. No chest pain. No cough or SOB. No urinary symptoms. Physical Exam Vital Signs (Past 24 Hours): Last Vital Signs Temp 36.7 C 12/17/18 15:44 Pulse 74 12/17/18 15:44 Resp 18 12/17/18 15:44 BP 132/81 12/17/18 15:44 Pulse Ox 94 12/17/18 15:44 Constitutional: no acute distress Respiratory: no respiratory distress Auscultation: lungs clear to auscultation bilaterally Cardiovascular: Rate/Rhythm: regular rate and regular rhythm Heart Sounds: no gallop, no murmur and no cardiac rub Vessels: no JVD Extremities: no calf tenderness and no edema Gastrointestinal (Abdomen): normal bowel sounds, soft, nontender, no hepatosplenomegaly Inspection/Auscultation: normal bowel sounds Skin: no rashes, warm and dry Psychiatric: Orientation: alert and oriented x 3 (1) Diverticulitis of large intestine with abscess Diverticulitis bleeding: without bleeding Qualified Code(s): K57.20 - Diverticulitis of large intestine with perforation and abscess without bleeding
--- NOTE | 2018-12-18 18:45 | Discharge Summary ---
Date of Service Date of admission: 12/04/18 Date of discharge: 12/17/18 Admission HPI Per Admitting Provider 63 y/o female with a PMH of diverticulosis, GERD and Schatzki ring who presented to the ED today with lower abdominal pain. Pt reports she woke up two days ago with generalized abdominal pain, nausea, vomiting and lightheadedness. Tried to drink a cup of tea but vomited. Rested most of the day and felt better by evening - was able to tolerate hot tea with crackers with peanut butter. Yesterday, woke up soaked in sweat but then went back to bed and woke up feeling fine. Was in usual state of health yesterday and ate normal diet. Woke up early this morning with lower abdominal pain (worse in LLQ), nausea, rigors, NAYAK and lightheadedness so came to ED for evaluation. Has not taken anything for pain. Did not eat anything this morning. Yesterday, she had a small amount of diarrhea but no BM today. No melena or hematochezia. Baseline bowel pattern is formed BM daily in AM without straining. No documented fevers. Last colonoscopy 03/07/13 - diverticulosis in sigmoid and descending colon but o/w normal. EGD done at same time revealed moderate Schatzki ring that was dilated and cut. There is a question of diverticulitis on her chart from 1999 but pt reports she has never had pain like this before. She did have a questionable diverticular bleed two years ago. Admission Exam Per Admitting Provider Constitutional: WD/WN, vitals as above Eyes: PERRL, conjunctivae normal, anicteric sclerae ENMT: external ear and nose normal, oropharynx normal Neck: trachea midline Respiratory: no respiratory distress and no labored breathing Auscultation: lungs clear to auscultation bilaterally; no rales, no rhonchi and no wheezes Cardiovascular: Rate/Rhythm: regular rate and regular rhythm Heart Sounds: no gallop, no murmur and no cardiac rub Vessels: no JVD and no carotid bruit Extremities: normal capillary refill; no calf tenderness and no edema Gastrointestinal (Abdomen): Inspection/Auscultation: normal bowel sounds; abdomen not distended Percussion/Palpation: + abdomen tender (to percussion and palpation in LLQ ), + guarding (voluntary guarding in LLQ), abdomen soft and + tympanic to percussion Moderate LLQ tenderness to light palpation, mild tenderness in LUQ and suprapubic area to light palpation. Musculoskeletal: no cyanosis or clubbing, extremities motor strength 5/5 Skin: no rashes, warm and dry normal turgor Neurologic: moves all extremities Cranial Nerves: tongue midline and able to elevate shoulders bilaterally Psychiatric: A+Ox3, euthymic affect Principal Diagnosis complicated sigmoid diverticulitis with peridiverticular abscess sepsis Discharge Data Allergies Allergy/AdvReac Type Severity Reaction Status Date / Time bee venom protein (honey bee) Allergy Mild ANAPHLYAXIS Verified 12/04/18 09:13 peppermint Allergy Unknown Unknown Verified 12/04/18 09:13 Consultations 12/04/18 10:17 ED Decision to Admit Stat 12/04/18 12:00 Consult General Surgery Routine Ordered Studies 12/04/18 07:47 CT abd pelvis IV con only Stat 12/07/18 09:27 CT abd pelvis oral and IV con Routine Hospital Course (1) Diverticulitis of large intestine with abscess: Presented with LLQ abdominal pain. CT demonstrated sigmoid diverticulitis complicated by abscess. Initial therapy consisted of bowel rest, IV antibiotics, analgesics. General Surgery consulted. 14 days course of antibiotics recommended. Repeat CT performed on 12/07/18 showed that the diverticular abscess decreased in size from 5.3 to 2.8 cm. Did not tolerate trial of oral therapy. Received IV piperacillin / tazobactam with improvement to complete 14 day course of therapy. Outpatient colonoscopy recommended in 6-8 weeks. (2) Sepsis: Met criteria for sepsis per current CMS critieria (tachycardia, leukocytosis). Source = diverticultitis. Blood cultures were obtained and broad-spectrum antibiotics were administered. Lactate 1.5. Sys BP's > 90. Improved. (3) DVT prophylaxis: Received SQ heparin. Ambulating. (4) Discharge planning issues: Discharge to home. Family Medicine follow-up with Dr. Castano. Total Time Total Time Spent Total Time Spent (In Minutes): 35 Discharge Plan Discharge Items Patient Disposition: Home - Self-Care Reason For Visit: ACUTE DIVERTICULITIS W/ ABSCESS Discharge Diagnosis: acute diverticulitis with abscess Condition: Good Discharge Goals: Decrease discomfort and Improve disease control Activity: Resume your previous activity Non-emergency contact: Primary Care Provider and Hospitalist Call non-emergency contact if: you have any medication questions, your symptoms worsen and your temperature is above 101 Follow-up/Referrals: Kenneth Castano [Primary Care Provider] - (Office will contact you with appointment.) Diet: Heart Healthy, Low Fiber and See below Diet Comment: low fiber diet until colonscopy, then high fiber Addtl Provider Instructions: APPOINTMENTS: FAMILY MEDICINE Dr. Castano. Office will contact you with appointment. OTHER INSTRUCTIONS: Seek medical attention if you have: * temperature above 101 * chest pain or trouble breathing * abdominal pain, nausea, vomiting * diarrhea, dark stools or bloody stools * any unanswered questions or concerns Call 222 if symptoms are severe. Call if you have any questions or problems. My cell # is [phone]. You can also reach a [facility] hospitalist on duty at [facility] 24 hours a day by calling [phone]. INSTRUCTIONS FROM GENERAL SURGERY If you have increasing or persistent abdominal pain please call office at [phone]. You may require further antibiotic therapy. Report to emergency room with severe abdominal pain, fever, chills, nausea, vomiting Follow-up in surgical office in 2 weeks, please call office at [phone] to make an appointment. You will need to schedule a colonoscopy in 6-8 weeks. Recommend low fiber diet up until your colonoscopy. Prescriptions: Continued No Known Home Medications RF: 0 Stand-Alone Forms: Call Back Authorization, My [facility] Discharge Orders: Discharge Order (Routine); Ordered 12/17/18 Ordered By: Kenneth Julien Admission Data Admit Date/Time: 12/04/18 10:55 Attending Provider: Kenneth Julien Admit Provider: Marilyn Ambrose Primary Care Provider: Kenneth Castano Other Providers: Marilyn Ambrose ; Osiel Broussard ; Isaias Hightower ; Esther Tompkins Service: Medical Other Interventions: Discharge Summary Assessment (RN) Last Done: 12/17/18 15:44 DC Date/Time DO NOT enter until pt leaves facility: 12/17/18 18:54
--- NOTE | 2018-12-26 06:58 | Coding Query ---
CODING QUERY To promote full compliance with coding requirements relating to patient care, provider participation is requested in all cases of burr grinder uncertainty. Please assist us with the question(s) below: Coding Question(s): Dr. Julien, Patient was admitted on 12/04, and sepsis is documented beginning on the 12/13/18 progress note. Please clarify if sepsis was: ( x ) POA ( ) Not POA ( ) Unable to determine Also, please specify causative organism of sepsis, if known: Physician's Response(s): Thank you for your time, GEORGE Mancera, [facility]
== END 2018-12-17 18:54 | disposition home or self-care (01) | DRG 871 ==
LOC: ED 07:30 → SUATTDRO 10:55 → 3N 10:55

== ENCOUNTER 2019-06-28 10:49 | Inpatient (IN) ==
--- NOTE | 2019-05-31 11:49 | Anesthesiology Consultation ---
Date of Service May 31, 2019 Assessment & Plan (1) Encounter for pre-operative examination: Chart Review Chart Review: Acceptable Risk for Surgery and Patient NOT seen in Pre Admission Testing Consults Requested none History Surgery Operation Date: 06/28/19 11:55 Proposed Procedures p Right Shoulder Conversion of Right Hemiarthroplasty to Reverse Total Shoulder Arthroplasty - Angel Pineda MD Height/Weight Height: 5 ft 2 in Weight: 77.111 kg Allergies Allergy/AdvReac Type Severity Reaction Status Date / Time bee venom protein (honey bee) Allergy Unknown ANAPHLYAXIS Verified 05/30/19 10:15 peppermint Allergy Unknown high fever Verified 05/30/19 10:15 Medications Home Medications Medication Instructions Recorded Confirmed Last Taken No Known Home Medications 08/21/18 05/30/19 Unknown Past Medical History Medical History Diverticulitis of large intestine with abscess (Acute) DECEMBER 2018 - HOSPITALIZED & ABX TX FOR - RESLOVED/ NO FURTHER ISSUES WITH Diverticulosis of colon (Chronic) Iron disorder (Chronic) HX OF "elevated Fe & ferritin; genetic testing for hemochromatosis negative 08/09/17" Psoriasis (Chronic) History of hysterectomy Past Family History Family History Father Alzheimer disease Mother Diabetes mellitus, type 2 Other Family history non-contributory Past Surgical History Surgical History History of colonoscopy History of hammer toe correction R History of tonsillectomy Status post right shoulder hemiarthroplasty 07/2018 due to fracture Biceps tenodesis done at same time Social History Smoking Status: Never smoker Do You Dip or Chew Tobacco: No Hx Alcohol Use: No Hx Substance Use: No substance use type: does not use Testing Laboratory Results Laboratory Tests 12/14/18 12/17/18 05/07/19 06:14 07:10 12:51 WBC 9.47 Hgb 14.7 Hct 43.6 Plt Count 293 PT INR APTT Sodium 138 Potassium 4.3 Chloride 106 Carbon Dioxide 26 BUN 18 Creatinine 0.93 Glucose 112 H Hemoglobin A1c 05/07/19 05/07/19 12:51 12:51 WBC Hgb Hct Plt Count PT 9.6 INR 0.9 APTT 26.6 Sodium Potassium Chloride Carbon Dioxide BUN Creatinine Glucose Hemoglobin A1c 6.1 H Electrocardiogram Date: 05/07/19 Findings: + NSR @ (71) Chest X-Ray Date: 05/07/19 Findings: + NAD Stress Test Date: 08/16/17 Findings: + WNL
--- NOTE | 2019-06-11 14:18 | History & Physical Report ---
Date of Service June 11, 2019 Assessment & Plan (1) Full thickness rotator cuff tear: Treatment options discussed with patient. As above she sustained right proximal humerus fracture and subsequently underwent right shoulder hemiarthroplasty in July of 2018. Post operatively she was progressing well. In November of 2018 she was hospitalized for flare of diverticulitis and sepsis. While in the hospital one of the nurses evidently pulled on her arm and patient felt a pop. She had increased pain and dysfunction of shoulder. Follow up x-rays demonstrated humeral head elevation and CT arthrogram was obtained demonstrating a full thickness rotator cuff tear. She was scheduled for revision surgery. Given history of recent infection labs were obtained. Sed rate and CRP were mildly elevated. Shoulder was aspirated and sent for analysis to r/o infection. Microgen analysis was negative, however culture was positive for Strep viridans. Will plan on frozen section with high powered field analysis intraoperatively. Based on these results plan will be for right shoulder conversion to reverse total shoulder arthroplasty vs excision of hemiarthroplasty and placement of antibiotic spacer. Risks, benefits and alternatives to surgery including but not limited to infection, DVT, pain, stiffness, non-union, need for revision surgery, failure to relieve all symptoms, progression of arthritis, damage to blood vessels, damage to nerves, risks of anesthesia were discussed with the patient and they wish to proceed. All questions answered. She will follow up in the office post operatively. Rotator cuff tear trauma status: unspecified whether traumatic Laterality: right Qualified Code(s): M75.121 - Complete rotator cuff tear or rupture of right shoulder, not specified as traumatic History of Present Illness Chief Complaint: Right shoulder pain Primary Care Provider: Kenneth Castano MD 63 year old female with PMHx significant for diverticulitis who sustained a right proximal humerus fracture and subsequently underwent right shoulder hemiarthroplasty in July of 2018. Post operatively she was progressing well. In November of 2018 she was hospitalized for flare of diverticulitis and sepsis. While in the hospital one of the nurses evidently pulled on her arm and patient felt a pop. She had increased pain and dysfunction of shoulder. Follow up x-rays demonstrated humeral head elevation and CT arthrogram was obtained demonstrating a full thickness rotator cuff tear. She was scheduled for revision surgery. Sed rate and CRP were mildly elevated. Shoulder was aspirated and sent for analysis to r/o infection. Microgen analysis was negative, however culture was positive for Strep viridans. Patient is scheduled for surgery on 06/28/19. Patient denies headaches, sweats, fevers, chills, double vision, blurred vision, cough, sore throat, dysphagia, chest pain, sob, wheezing, n/v/d/c, numbness, tingling, fatigue, urinary symptoms, mood disorders. ROS positive for Right shoulder pain and stiffness. Allergies Allergy/AdvReac Type Severity Reaction Status Date / Time bee venom protein (honey bee) Allergy Unknown ANAPHLYAXIS Verified 05/30/19 10:1 5 peppermint Allergy Unknown high fever Verified 05/30/19 10:15 Home Medications Home Medications Medication Instructions Recorded Confirmed Type No Known Home Medications 08/21/18 05/30/19 History Past Med/Surg History Medical History Diverticulitis of large intestine with abscess (Acute) DECEMBER 2018 - HOSPITALIZED & ABX TX FOR - RESLOVED/ NO FURTHER ISSUES WITH Diverticulosis of colon (Chronic) Iron disorder (Chronic) HX OF "elevated Fe & ferritin; genetic testing for hemochromatosis negative 08/09/17" Psoriasis (Chronic) History of hysterectomy Surgical History History of colonoscopy History of hammer toe correction R History of tonsillectomy Status post right shoulder hemiarthroplasty 07/2018 due to fracture Biceps tenodesis done at same time Family History Father Alzheimer disease Mother Diabetes mellitus, type 2 Other Family history non-contributory Social History Preferred Language: Qatari Communication Ability: Effective Property Claims Adjuster Required: No Beliefs That Will Affect Care: None marital status: Single Current Living Situation: Other Current Living Situation Comment: [facility] PATIENT Other Information That Helps Us Care for You: No Feels Safe at Home: Yes Smoking Status: Never smoker Do You Dip or Chew Tobacco: No ; Second Hand Expo sure: No ; Hx Alcohol Use: No Hx Substance Use: No Review of Systems All systems reviewed & are unremarkable except as noted in HPI & below Physical Exam Constitutional: well developed and well nourished; no acute distress Eyes: PERRL, conjunctivae normal, anicteric sclerae ENMT: external ear and nose normal, oropharynx normal Neck: trachea midline, no thyromegaly Respiratory: normal respiratory effort, lungs clear to auscultation Cardiovascular: RRR, no murmur, no edema Musculoskeletal: Right shoulder: Incision well healed. Strength decreased in all directions. 3/5 supraspinatus and infraspinatus. ROM 0-85 flexion, 0-60 abduction, 0-30 ER. Skin: no rashes, warm and dry Neurologic: patellar DTR's 2+ bilat, sensation intact Psychiatric: A+Ox3, euthymic affect Results & Data Diagnostic Findings CT arthrogram: Suspected full thickness tear of supraspinatus and infraspinatus with retraction, partial subscapularis tearing
[~2019-06-28 10:49] MED LIST changes: +ACETAMINOPHEN 500 MG TAB PO SCH; +CEFAZOLIN 1000MG 1,000 MG/7.5 ML SYR IV SCH; -CIPR-255 PO; +CeleBREX 200 MG CAP PO SCH; +DEXAMETHASONE SOD INJ 4 MG/ML VIAL ONE; +FAMOTIDINE 20 MG TAB PO SCH; +GABAPENTIN 300 MG CAP PO SCH; +GLYCOPYRROLATE 0.2 MG/ML VIAL ONE; +LIDOCAINE HCL 2% 2 ML VIAL/AMP(20MG/ML) INFIL ONE; +LR 15ML/HR IV SCH; -METR500T PO; +MIDAZOLAM HCL 1 MG/ML 2ML VIAL ONE; +NEOSTIGMINE METHYLSULFATE 5 MG/5 ML SYR ONE; +ONDANSETRON INJ 2 MG/ML 2 ML VIAL ONE; -OXYC-737 PO; +PROPOFOL IV EMULSION 10 MG/ML 20 ML VIAL IV ONE; +ROPIVACAINE 0.5% 5 MG/ML 30 ML VIAL ONE; +ROPIVACAINE 0.5% HCL/PF 150 MG, BUPIVACAINE 0.5% MPF 30 ML, EPINEPHrine 30MG/30ML (OR U... INFIL SCH; +TRANEXAMIC ACID 1,000 MG **IV Intra-op IV SCH; +TRANEXAMIC ACID 1,000 MG **IV Pre-op IV SCH; +dexAMETHasone 4 MG TAB PO SCH; +fentaNYL citrate 100 MCG/2 ML VIAL ONE
--- NOTE | 2019-06-28 11:15 | History & Physical Bridge Note ---
Date of Service June 28, 2019 History & Physical Bridge Note I have examined the patient, reviewed the History & Physical and in the interval since the performance of the History & Physical I have noted the following changes of clinical significance: no changes noted
[2019-06-28] MEDS ORDERED: VANCOMYCIN HCL 1000MG/20ML VIAL ONE (11:58)
[2019-06-28] MEDS ORDERED: BACITRACIN INJ 50,000 UNIT VIAL ONE (11:58)
[2019-06-28] MEDS ORDERED: dexAMETHasone 4 MG TAB PO ONE (12:04)
[2019-06-28] MEDS ORDERED: FAMOTIDINE 20 MG TAB ONE (12:04)
[2019-06-28] MEDS ORDERED: GABAPENTIN 300 MG CAP ONE (12:04)
[2019-06-28] MEDS ORDERED: CeleBREX 200 MG CAP ONE (12:04)
[2019-06-28] MEDS ORDERED: ONDANSETRON INJ 2 MG/ML 2 ML VIAL IV PRN ×2 (12:05→16:44)
[2019-06-28] MEDS ORDERED: ACETAMINOPHEN 500 MG TAB ONE (12:05)
[2019-06-28] MEDS ORDERED: fentaNYL citrate 100 MCG/2 ML VIAL IV PRN (12:05)
[2019-06-28] MEDS ORDERED: ePHEDrine sulfate 50 MG/ML AMP IV PRN (12:05)
[2019-06-28] MEDS ORDERED: ATROPINE SULFATE 0.1 MG/ML 10ML SYR IV PRN (12:05)
[2019-06-28] MEDS ORDERED: ePHEDrine sulfate 50 MG/ML SYR ONE (14:06)
[2019-06-28] MEDS ORDERED: GLYCOPYRROLATE 0.2 MG/ML VIAL ONE (15:03)
[2019-06-28] MEDS ORDERED: NEOSTIGMINE METHYLSULFATE 5 MG/5 ML SYR ONE (15:03)
--- NOTE | 2019-06-28 15:04 | Operative Report ---
Post Operative Report Pre & Post Diagnosis Operation Date: 06/28/19 13:25 Pre-Op Diagnosis: Full thickness rotator cuff tear status post right shoulder hemiarthroplasty Post-Op Diagnosis: Full thickness rotator cuff tear status post right shoulder hemiarthroplasty Procedure Operation Date: 06/28/19 13:25 Actual Procedures p Right Shoulder Conversion of Right Hemiarthroplasty to Reverse Total Shoulder Arthroplasty (Right) - Angel Pineda MD Surgeon Angel Pineda MD Radiator Mechanic Ovidio Burton PA-C Estimated Blood Loss 50 Findings Consistent with Post-Op Diagnosis Specimens Bone and tissue Cultures Specimen for white blood cells per high-power field Drains 1 Hemovac Anesthesia Type General Regional Complications none Disposition Accompanied Patient To Recovery: No Disposition: Recovery Room Indications Patient is a 63-year-old female who in July 2018 sustained a comminuted right proximal humerus fracture. I treated this with a hemiarthroplasty. She initially had done well postoperatively. She was subsequently hospitalized in 2019 for an abdominal abscess. During that admission she was pulled up out of bed by her right shoulder. She reports that she has had pain in that shoulder ever since. Imaging demonstrated significant humeral head elevation after this episode consistent with cuff failure. CT arthrogram demonstrated tearing of her rotator cuff. Preoperative labs demonstrated slight elevation to the sed rate as well as CRP. I aspirated the shoulder under fluoroscopy. It was a relatively dry tap but I injected some sterile saline into the joint in order to have enough fluid to send for specimen. It was sent for bacteria DNA PCR testing (micro GEN) which was negative. It was also sent for culture which grew Streptococcus viridans. We discussed that we are uncertain whether this was a secondarily infected shoulder from her abdominal infection or if this was a contaminant. We discussed the need for possible conversion to either a reverse total shoulder arthroplasty or removal and placement of antibiotic spacer depending on the specimens taken at the time of surgery. I also discussed with her that given the placement of the stent we may not be able to get the shoulder reduced with a reverse total shoulder without removing the stem and moving them distally. I discussed the concomitant risk of possible fracture of the humerus while removal of the stent was taking place. She voices understanding wishes to proceed. Description of Procedure Risks, benefits and alternatives to surgery including, but not limited to, infection DVT, pain, stiffness, need for revision surgery, failure to relieve all symptoms, damage to blood vessels, damage to nerves, risk of anesthesia were discussed with the patient and they wished to proceed. The patient was identified. Laterality was confirmed and marked. The patient received a preoperative antibiotic as well as an interscalene block. They were transferred to the operating room and placed in the supine position and induced into general endotracheal anesthesia per the anesthesia staff. The patient was then safely transferred to a slight beachchair position. The patient was secured in the Tenet positioner. All pressure points were well padded. The shoulder was prepped and draped in the usual sterile manner with ChloraPrep. The arm was secured in the Spider villarreal. I made a longitudinal incision just lateral to the coracoid, sharply incising through the skin and utilizing Bovie electrocautery to achieve hemostasis. I identified the Ethibond sutures that I used for previous closure of the deltopectoral interval and this helped us reidentify the deltopectoral interval. I identified the cephalic vein and mobilized it laterally with the deltoid. I mobilize the pectoralis and mobilize this medially releasing a small portion of the upper border of the pec tendon to improve visualization. I then identified and mobilized the conjoined tendon. I then identified the region of my previous subscapularis repair. I released the subscapularis tendon from the lesser tuberosity bone. Some of his bone had healed to the stem some of it. I am not completely healed to the stem into the jackson humeral bone. This unstable bone was removed with a right. The stem itself was rocksolid. I sent some tissue from underneath of the humeral head prosthesis right inspection under high-power field. This came back as no white blood cells seen. Cultures were also taken. I then removed the humeral head from the replicator plate. I took the torcula being screw out of the replicator plate. I had some difficulty getting the replicator plate stem off of the humeral stem due to cold welding. Finally mobilized and removed we need to torque the arm quite a bit and the humeral stem itself seem to be rocksolid while we are doing this. Then removed some surrounding scar from the stem. There was some scar tissue in the region where the supraspinatus and infraspinatus should be but there was really no rotator cuff tissue superiorly. There was some teres minor tissue that appeared to have healed. There is some bone that was from the greater tuberosity seem to be embedded and into this tissue. I elected to leave that there is felt trying to carve out that remaining bone would have released any external rotators that had healed for her. I placed retractors around the glenoid and then excised the residual biceps tendon stump and glenoid labrum. I elevated the soft tissues and the inferior aspect of the glenoid to improve exposure and released tissues circumferentially. There was some eccentric wear anteriorly. Used a reamer just on hand power to smooth this down. I then positioned and drilled for the central post for the glenoid plate. The glenoid plate was bone grafted with bone taken from the drill bit from the central posterior drilling. I impacted the definitive glenoid plate into position and then placed a total of 5 compression screws that were then locked into position with locking caps. I then placed the glenosphere onto the plate and secured it with a locking screw. I then trialed off of the definitive stem. The definitive components used were [employer] Equinox: The stem that she had previously was retained this was a Preserve short humeral press-fit stem: 12 The new components that were implanted were: Standard glenoid plate Glenosphere: 38 Humeral tray:+ 0 Humeral polyethylene liner: + 0 I thoroughly irrigated the wound. Deep tissues were anesthetized with an orthomix solution. I then locked my definitive humeral tray into position with a torque limiting screw. I then impacted the definitive humeral polyethylene liner into position. I then reduced the shoulder. There was good range of motion and good stability after the reduction. The wound was again thoroughly irrigated and a Betadine soak was performed. A deep drain was placed. The deltopectoral interval was closed with interrupted #1 Ethibond suture. The subcutaneous tissue was closed with interrupted 2-0 Vicryl suture. The skin was closed with francisco javier. A sterile dressing was applied. A sling was placed. All needle and sponge counts were correct at the end of the procedure. The patient was transferred to the PACU in stable condition without apparent complication. The PA-C was necessary for assistance with procedure for assistance in positioning, prepping, draping, retraction and closure. I attest to the content of the Intraoperative Record and any orders documented therein. Any exceptions are noted below.
--- NOTE | 2019-06-28 16:01 | XRay Report ---
XR shoulder RT min 2V routine CLINICAL HISTORY: Post shoulder surgery COMPARISON STUDY: Right shoulder 08/22/2018. FINDINGS: Status post reverse right total shoulder arthroplasty. The hardware is intact. No acute fra cture or dislocation. Skin francisco javier and surgical drains are placed. IMPRESSION: Status post reverse right total shoulder arthroplasty. No evidence for hardware complica tion. Electronically signed by: Bladimir Beckett M.D. 06/28/2019 4:00 PM
--- NOTE | 2019-06-28 16:01 | Anesthesiology Progress Note ---
Date of Service June 28, 2019 Anesthesia Post Procedure Vital Signs Vital Signs: Temp Pulse Resp BP Pulse Ox 06/28/19 15:55 67 16 150/57 H 97 06/28/19 15:45 82 17 128/69 100 06/28/19 15:35 71 23 115/56 L 100 06/28/19 15:29 36 C L 73 17 144/62 H 99 06/28/19 11:26 36.5 C 65 16 117/52 L 95 Transfer of Care Handoff Completed per policy Notes Mental Status: alert / awake / arousable Patient Amnestic to Procedure: Yes Nausea / Vomiting: adequately controlled Pain: adequately controlled Airway Patency, RR, SpO2: stable & adequate BP & HR: stable & adequate Hydration State: stable & adequate Anesthetic Complications: no major complications apparent
[2019-06-28] MEDS ORDERED: OXYCODONE HCL IR 5 MG TAB (IMMEDIATE RELEASE) PO PRN (16:44)
[2019-06-28] MEDS ORDERED: HYDROmorphone INJ 0.5 MG/0.5 ML SYR IV PRN (16:44)
[2019-06-28] MEDS ORDERED: NALOXONE HCL 0.4 MG/1 ML VIAL/CARP IV PRN (16:44)
[2019-06-28] MEDS: MISSING PHYSICIAN SIGNATURE ON ORDER SCH ×2 (16:48→16:49)
[2019-06-28] MEDS: KETOROLAC TROMETHAMINE 15 MG/ML VIAL IV SCH ×2 (18:20→23:33)
[2019-06-28] MEDS: CEFAZOLIN 2000MG 2,000 MG/15 ML SYR IV SCH (20:00)
[2019-06-28] MEDS: SODIUM CHLORIDE 0.9% 1000ML 1,000 ML IV SCH (20:00)
[2019-06-28] MEDS: DOCUSATE SODIUM 100 MG CAP PO SCH (20:00)
[2019-06-28] MEDS: ACETAMINOPHEN 500 MG TAB PO SCH ×2 (21:19)
[2019-06-29] MEDS: SODIUM CHLORIDE 0.9% 1000ML 1,000 ML IV SCH (02:58)
[2019-06-29] MEDS: ACETAMINOPHEN 500 MG TAB PO SCH (05:20)
[2019-06-29] MEDS: CEFAZOLIN 2000MG 2,000 MG/15 ML SYR IV SCH (05:20)
[2019-06-29] MEDS: KETOROLAC TROMETHAMINE 15 MG/ML VIAL IV SCH ×2 (05:20→11:49)
[2019-06-29 06:04] LABS: Basophils # (auto) 0.01 K/uL (0-0.2); Basophils % (auto) 0.1 %; Hematocrit (blood only) 37.8 % (37-47); Hemoglobin 12.6 g/dL (12.0-16.0); Immature Granulocytes # (auto) 0.03 K/uL (0.00-0.02); Immature Granulocytes % (auto) 0.2 %; Lymphocytes # (auto) 1.23 K/uL (1.2-3.4); Lymphocytes % (auto) 8.1 %; Mean Corpuscular Hemoglobin 31.1 pg (25-34); Mean Corpuscular Hgb Conc 33.3 g/dL (32-36); Mean Corpuscular Volume 93.3 fL (80-100); Mean Platelet Volume 10.2 fL (7.4-10.4); Monocytes # (auto) 0.25 K/uL (0.11-0.59); Monocytes % (auto) 1.6 %; Neutrophils # (auto) 13.64 K/uL (1.4-6.5); Platelet Count 230 K/uL (130-400); RDW Coefficient of Variation 13.6 % (11.5-14.5); RDW Standard Deviation 46.9 fL (36.4-46.3); Red Blood Count 4.05 M/uL (4.2-5.4); White Blood Count 15.16 K/uL (4.8-10.8)
[2019-06-29 06:32] LABS: BUN Creatinine Ratio 15.1 (10-20); Calcium 8.1 mg/dl (8.5-10.1); Creatinine Clr Calc Pharmacy 50.3 ml/min; Est GFR (African American) 61.7; Est GFR (Non-African American) 53.2; Potassium 4.3 mmol/L (3.5-5.1)
--- NOTE | 2019-06-29 06:44 | Orthopedic Progress Note ---
Date of Service June 29, 2019 Assessment & Plan (1) Full thickness rotator cuff tear: POD #1 right shoulder hemiarthroplasty conversion to reverse total shoulder arthroplasty -Pain management -DVT prophylaxisSCDs -PT/OT -A.m. labs hemoglobin 12.6 from 14.7 on preop labs -Discharge planningHome with outpatient therapy likely later today as long as therapy goes well. We will plan on sending home with prescription for cefadroxil for antibiotic prophylaxis. Subjective Patient is POD #1 right shoulder reverse total shoulder arthroplasty. Doing well this morning, pain well controlled. Does have some mild numbness of her thumb and index finger, is improving. No other complaints. Denies chest pain shortness of breath dizziness lightheadedness. Review of Systems Review of Systems: All systems reviewed & are unremarkable except as noted in HPI & below Physical Exam Physical Exam: Dressing is clean, dry, intact. Sling in place. Fingers are mobile, good bargeman strength. Distally neurovascular status and sensation intact. Constitutional: well developed and well nourished; no acute distress Results & Data Vital Signs (Past 12 Hours) Vital Signs Temp Pulse Resp BP Pulse Ox 06/29/19 03:13 36.6 C 86 14 95/59 L 93 06/28/19 22:54 36.5 C 90 14 105/69 93 06/28/19 20:04 95 H 06/28/19 19:49 36.6 C 104 H 18 112/71 93 (1) Full thickness rotator cuff tear Rotator cuff tear trauma status: unspecified whether traumatic Laterality: right Qualified Code(s): M75.121 - Complete rotator cuff tear or rupture of right shoulder, not specified as traumatic
--- NOTE | 2019-06-29 07:45 | Anesthesiology Progress Note ---
Date of Service June 29, 2019 Anesthesia Post Procedure Vital Signs Vital Signs: Temp Pulse Pulse Resp BP Pulse Ox 06/29/19 03:13 36.6 C 86 14 95/59 L 93 06/28/19 22:54 36.5 C 90 14 105/69 93 06/28/19 20:04 95 H 06/28/19 19:49 36.6 C 104 H 18 112/71 93 06/28/19 18:36 36.8 C 103 H 18 103/66 92 06/28/19 17:35 36.3 C L 75 12 119/65 99 06/28/19 17:08 35.8 C L 76 17 123/73 100 06/28/19 16:35 36.5 C 65 14 122/73 100 06/28/19 16:15 64 14 122/50 L 98 06/28/19 16:05 36.8 C 61 15 144/50 H 97 06/28/19 15:55 67 16 150/57 H 97 06/28/19 15:45 82 17 128/69 100 06/28/19 15:35 71 23 115/56 L 100 06/28/19 15:29 36 C L 73 17 144/62 H 99 06/28/19 11:26 36.5 C 65 16 117/52 L 95 Notes Mental Status: alert / awake / arousable and participated in evaluation Patient Amnestic to Procedure: Yes Nausea / Vomiting: adequately controlled Pain: adequately controlled Airway Patency, RR, SpO2: stable & adequate BP & HR: stable & adequate Hydration State: stable & adequate Neuraxial Anesthesia: sensory block is resolving Anesthetic Complications: Pt Satisfied with anesthetic care
[2019-06-29 08:11] VITALS: O2SAT 94
[2019-06-29] MEDS: DOCUSATE SODIUM 100 MG CAP PO SCH (08:37)
[2019-06-29] MEDS ORDERED: MULTIVITAMIN TAB PO SCH (09:00)
[2019-06-29] MEDS ORDERED: ASPIRIN 81 MG ECTAB PO SCH (09:00)
[2019-06-29 11:47] VITALS: BP 109/67; PULSE 68; TEMP 98.2
--- NOTE | 2019-07-02 11:33 | Discharge Summary ---
Date of Service July 02, 2019 Admission HPI Per Admitting Provider 63 year old female with PMHx significant for diverticulitis who sustained a right proximal humerus fracture and subsequently underwent right shoulder hemiarthroplasty in July of 2018. Post operatively she was progressing well. In November of 2018 she was hospitalized for flare of diverticulitis and sepsis. While in the hospital one of the nurses evidently pulled on her arm and patient felt a pop. She had increased pain and dysfunction of shoulder. Follow up x-rays demonstrated humeral head elevation and CT arthrogram was obtained demonstrating a full thickness rotator cuff tear. She was scheduled for revision surgery. Sed rate and CRP were mildly elevated. Shoulder was aspirated and sent for analysis to r/o infection. Microgen analysis was negative, however culture was positive for Strep viridans. Patient is scheduled for surgery on 06/28/19. Patient denies headaches, sweats, fevers, chills, double vision, blurred vision, cough, sore throat, dysphagia, chest pain, sob, wheezing, n/v/d/c, numbness, tingling, fatigue, urinary symptoms, mood disorders. ROS positive for Right shoulder pain and stiffness. Admission Exam Per Admitting Provider Physical Exam Constitutional: well developed and well nourished; no acute distress Eyes: PERRL, conjunctivae normal, anicteric sclerae ENMT: external ear and nose normal, oropharynx normal Neck: trachea midline, no thyromegaly Respiratory: normal respiratory effort, lungs clear to auscultation Cardiovascular: RRR, no murmur, no edema Musculoskeletal: Right shoulder: Incision well healed. Strength decreased in all directions. 3/5 supraspinatus and infraspinatus. ROM 0-85 flexion, 0-60 abduction, 0-30 ER. Skin: no rashes, warm and dry Neurologic: patellar DTR's 2+ bilat, sensation intact Psychiatric: A+Ox3, euthymic affect Principal Diagnosis Full thickness rotator cuff tear status post right shoulder hemiarthroplasty Discharge Exam Physical Exam: Dressing is clean, dry, intact. Sling in place. Fingers are mobile, good multigraph operator strength. Distally neurovascular status and sensation intact. Constitutional: well developed and well nourished; no acute distress Discharge Data Allergies Allergy/AdvReac Type Severity Reaction Status Date / Time bee venom protein (honey bee) Allergy Unknown ANAPHLYAXIS Verified 06/28/19 11:17 peppermint Allergy Unknown high fever Verified 05/30/19 10:15 Consultations 06/28/19 16:44 Consult Case Management - Discharge Planning Routine Procedures Performed Operation Date: 06/28/19 13:25 Actual Procedures p Right Shoulder Conversion of Right Hemiarthroplasty to Reverse Total Shoulder Arthroplasty (Right) - Angel Pineda MD Ordered Studies 06/28/19 05:00 US - OR guided needle placemen Routine Hospital Course (1) Full thickness rotator cuff tear: Patient was admitted on the above-noted date and had the above-noted surgery performed. 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 Patient tolerated procedure well. On her first postoperative day, she was remaining stable. Vital signs are stable and she was afebrile. Dressings remain intact. She had some residual numbness and tingling in the fingers from her nerve block for the surgery but otherwise had good hand strength and range of motion. She was progressing well and was felt to be discharged home. Total Time Total Time Spent Total Time Spent (In Minutes): 1 Discharge Plan Discharge Items Patient Disposition: Home - Self-Care Reason For Visit: Presence of Right Artificial Shoulder Joint Discharge Diagnosis: s/p right shoulder hemiarthroplasty Activity: Per Instructions section Non-emergency contact: Surgeon Call non-emergency contact if: you have any medication questions, your pain is not controlled, your pain is concerning for you, you have a fever, your temperature is above 101, your wound has increased redness and your wound has increased drainage Follow-up/Referrals: Kenneth Castano MD [Primary Care Provider] - Diet: Regular Addtl Attending Provider Instructions: ACTIVITY RECOMMENDATIONS: SELF CARE INSTRUCTIONS AFTER TOTAL SHOULDER ARTHROPLASTY REVERSE A. You may do daily exercises as taught in physical therapy while in hospital. No lifting with the operative arm. B. You are to wear your sling/immobilizer at all times EXCEPT when performing your daily exercises and for hygiene purposes. C. You may perform dry, daily dressing changes. Please keep your incision covered. You may shower 48 hours after surgery. Do not apply soap or any ointment/lotions directly over incision. Do not soak incision in bath tub/swimming pool. D. You may use ice as needed to operative shoulder. E. You should start physical therapy 2-3 days post discharge from hospital SPECIAL CARE INSTRUCTIONS: VERY IMPORTANT TO READ AND REVIEW A. There are a few signs you need to watch for after you are home. Call [facility] at [phone] if you experience any of the followin. Increased severe shoulder pain. Some pain is expected especially when you exercise. 2. Increased swelling in you shoulder or arm; pain or swelling in either upper extremity. 3. Any fluid drainage from the incision. 4. Shortness of breath or chest pain. B. Please call [facility] at [phone] if you have any questions or concerns about your operation or recovery. C. Call your physician if: 1. Temperature is greater than 101 degrees (F). 2. Pain is not relieved by prescribed pain medications. 3. Increase drainage or redness from incision. 4. Unanswered questions or concerns. FOLLOW UP VISIT: Please call [facility] at [phone] to schedule a follow up appointment with Dr. Pineda or his PA in 12-14 days from your surgery date. Pending Studies at Discharge: No Stand-Alone Forms: My [facility], Opioid Pain Management Medications and DC Order Prescriptions: New acetaminophen [Tylenol Extra Strength] 500 mg Tablet 1,000 mg PO Q8 Qty: 60 RF: 0 oxycodone 5 mg Tablet 5 - 10 mg PO .Q4H-6H MDD 6 PRN (Reason: pain) Qty: 30 RF: 0 celecoxib [Celebrex] 200 mg capsule 200 mg PO BID Qty: 60 RF: 0 cefadroxil 500 mg capsule 500 mg PO BID Qty: 60 RF: 0 No Action No Known Home Medications RF: 0 Discharge Orders: Discharge Order (Routine); Ordered 06/29/19 Ordered By: Kenneth Rapp Admission Data Admit Date/Time: 06/28/19 15:26 Attending Provider: Angel Pineda Admit Provider: Angel Pineda Primary Care Provider: Kenneth Castano Other Interventions: Discharge Summary Assessment (RN) Last Done: 06/29/19 11:54 DC Date/Time DO NOT enter until pt leaves facility: 06/29/19 12:32
== END 2019-06-29 12:32 | disposition home or self-care (01) | DRG 483 ==
LOC: ASU 10:49 → 3E 15:26

== ENCOUNTER 2023-11-06 02:20 | Observation (INO) ==
--- OUTSIDE RECORDS SUMMARY | 2023-11-06 02:26 | External Medical Summary ---
Author Name Unknown Address Unknown Organization [id number]:[facility] [place] [address] [facility] [address] Laboratory Report Ordering Provider Test Date Status JESÚS LLAMAS III 07/18/2023 07:09:38 Final Observation Date Value Abnormality Reference (Units ) Status HbA1C 07/18/2023 07:09:38 6.2 Above high normal 4. 0-5.6 (%) Final The use of HbA1c to monitor glycemic status is based on normal hemoglobin and HbA composition. This test should not be used in patients with abnormal hemoglobin that affects the half life of the red blood cell or the in vivo glycation rates. Glucose, estimated average 07/18/2023 07:09:38 131 Above high normal <126 (mg/dL) Lit lee Performing Location [facility] [place] [address] [facility] [address]
--- OUTSIDE RECORDS SUMMARY | 2023-11-06 02:26 | External Medical Summary | Summary of Care ---
Author Name Unknown Organization [facility] Address [address] [place] [address] Phone [phone] Care Team Providers Care Silviculture Professor Name Role Phone Omaira TY MD, John E Primary Care Provider [phone] Reason for Visit * Reason Onset Date Comments Health Maintenance 06/17/2023 Encounter Details Date Type Department Care Team Description 06/17/2023 Telephone Family Practice [facility] [place] [address] [facility] [place] [address] Kenneth Castano III, MD [address] [facility] [place] [address] Health Maintenance Allergies Active Allergy Reactions Severity Noted Date Comments Bee Venom Anaphylaxis High 02/16/2013 Food (See Comments) Fever 05/27/2011 peppermint documented as of this encounter (statuses as of 06/17/2023) Medications Medication Sig Dispensed Refills Start Date End Date Status Zoster Vac Recomb Adjuvanted 50 MCG/0.5ML Intramuscular Suspension Reconstituted (Shingrix) INJECT 0.5 ML INTO A LARGE MUSCLE NOW AND REPEAT DOSE IN 60 TO 180 DAYS 1 mL 0 12/28/2021 Active Rosuvastatin Calcium 5 MG Oral Tablet (Crestor) TAKE 1 TABLET BY MOUTH IN THE MORNING 90 Tablet 3 01/06/2023 01/06/2024 Active Dulaglutide 0.75 MG/0.5ML Subcutaneous Solution Pen-injector (Trulicity) INJECT 0.75 MG UNDER THE SKIN ONCE A WEEK 6 mL 3 12/29/2022 12/29/2023 Active documented as of this encounter (statuses as of 06/17/2023) Active Problems Problem Noted Date 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 12/29/2022 Chronic angle-closure glaucoma, right ey e, moderate stage 12/29/2022 Type 2 diabetes mellitus with stage 3a c hronic kidney disease 12/28/2021 Dyslipidemia 12/28/2021 Primary open-angle glaucoma, right eye, moderate stage 06/29/2021 Stage 3a chronic kidney disease 08/04/20 Overview: Per CKD protocol Schatzki's ring 03/08/2013 documented as of this encounter (statuses as of 06/17/2023) Resolved Problems Problem Noted Date Resolved Date Pre-operative general physical examination 01/2101/21/2023 Type 2 diabetes mellitus wit h stage 3a chronic kidney disease, without long-term current use of insulin 12/29/202212/25 Dyslipidemia, goal LDL below 70 08/24/2021 12/28/2021 Diabetes mellitus without complication 12/16/2022 Iron overload 02/22/2020 06/30/2022 Prediabetes 06/13/2019 12/28/2021 Kidney disease, chronic, stage III (GFR 30-59 ml /min) 01/01/2019 08/07/2020 Overview: Per CKD protocol #1 documented as of this encounter (statuses as of 06/17/2023) Immunizations Name Administration Dates Next Due Pneumococcal Conjugate Vacc, 13 Valent (Prevnar) 06/13/2019 Pneumococcal Polysaccharide PPV23 (Pneumovax) TDAP (age 10 and older)(Boostrix) 02/16/2013 Zoster Vaccine Recombinant (Shingrix) 12/28/2021 ,06/29/2021 documented as of this encounter Social History Tobacco Use Types Packs/Day Years Used Date Smoking Tobacco: Never Smokeless Tobacco: Never Alcohol Use Standard Drinks/Week Comments No 0 (1 standard drink = 0.6 oz pur e alcohol) Sex Assigned at Date Recorded Not on file Job Start Date Occupation Industry Not on file Not on file Not on file documented as of this encounter Miscellaneous Notes * Telephone Encounter - Maru Figueroa LPN - 06/17/2023 9:03 AM EDT Care Gaps Comprehensive Care Outreach Last Office/Telemedicine Visit: 04/05/2023 (in office), Visit date not found (telemedicine) Next Office Visit: 07/25/2023 Hemoglobin AIC Results: Lab Results Component Value Date/Time HEMOGLOBIN A1C - [facility] 7.0 (H) 12/21/2022 07:20 AM HEMOGLOBIN A1C - [facility] 6.3 (H) 06/28/2022 10:33 AM HEMOGLOBIN A1C - [facility] 6.6 (H) 12/10/2021 11:59 AM HEMOGLOBIN A1C - [facility] 6.6 (H) 07/02/2020 12:16 PM HEMOGLOBIN A1C - [facility] 6.3 (H) 02/22/2020 08:33 AM HEMOGLOBIN A1C - [facility] 6.4 06/28/2017 12:47 PM Reviewed Health Maintenance below: Health Maintenance Topic Date Due COVID-19 Vaccine (1) Never done Diabetic Foot Exam 12/28/2022 Depression Screening 12/28/2022 DTaP,Tdap,and Td Vaccines (2 - Td or Tdap) 02/16/2023 Influenza Vaccine (FLU shot) (1) Never done HbA1c 06/23/2023 CKD HGB USE SMARTSET 21046 06/28/2023 CKD PHOS USE SMARTSET 40267 06/28/2023 Albumin/Creatinine Ratio 07/29/2023 GFR 06/23/2023 Foot Labs Labs ordered and scheduled Care Gap Outreach Action Taken: Spoke to patient documented in this encounter Plan of Treatment Upcoming Encounters Date Type Specialty Care Team Description 07/18/2023 Laboratory Laboratory Mirna Soares [address] [place] [address] 07/25/2023 Office Visit Family Medicine Candler III, Kenneth Mays MD [address] [place] [address] Scheduled Orders Name Type Priority Associated Diagnoses Orde r Schedule CBC Lab Routine Chronic kidney disease, unspecified CKD stage Expected: 06/17/2023, Expires: 06/17/2024 PHOSPHORUS Lab Routine Chronic kidney disease, unspecified CKD stage Expected: 06/17/2023, Expires: 06/17/2024 Scheduled Procedures Name Priority Associated Diagnoses Date/Ti me COLONOSCOPY FLEXIBLE PROXIMA L DIAGNOSTIC Recall Encounter for screening colonoscopy Health Maintenance Due Date Last Done Comments COVID-19 Vaccine (#1) 01/25/1956 Cologuard 1998 Fecal Occult Blood Test 1998 Sigmoidoscopy 1998 Depression Screening 12/28/2022 12/28/2021 Diabetic Foot Exam 12/28/2022 12/28/2021 DTaP,Tdap,and Td Vaccines (2 - Td or Tdap) 02/16/2023 02/16/2013 Influenza Vaccine (FLU shot) (#1) 2023 GFR 06/23/2023 12/21/2022, 100 11/2021, 12/10/2021, Additional history exists HbA1c 06/23/2023 12/21/2022, 100 11/2021, 12/10/2021, Additional history exists CKD HGB USE SMARTSET 57501 06/28/202306/28, 06/09/2021, 07/02/2020, Additional history exists CKD PHOS USE SMARTSET 57478 06/28/20230 11/2021, 06/09/2021, 07/02/2020 Albumin/Creatinine Ratio 07/29/2023 022, 06/28/2022, 07/01/2021 Mammogram 12/30/2023 12/29/2022, 07/27, 06/15/2019, Additional history exists DXA Scan 06/18/2026 06/18/2019 Lipid Panel 06/28/2027 06/28/2022, 11/24, 02/22/2020, Additional history exists Colonoscopy 02/16/2029 02/16/2019, 01/25, 03/08/2013, Additional history exists Colorectal Cancer Screening 02/16/2029 Pneumococcal Vaccine: 65+ Years Completed 07/02/2020, 06/13/2019 Zoster Vaccines Completed 12/28/2021, 06/29/2021 GARDASIL-HPV IMMUNIZATION SERIES Aged Out No longer eligible based on patient's age to complete this topic Hepatitis B Aged Out No longer eligi ble based on patient's age to complete this topic MENINGOCOCCAL (MENACTRA/MENVEO) Aged Out No longer eligible based on patient's age to complete this topic documented as of this encounter Medical Devices Implanted Type Area Merchant Tailor Device Identifier Shelf Expiration Date Model / Serial / Lot Lens Intraoc 18.5 - [id number] - [id number] Implanted:Qty: 1 on 07/10/2020 by Arvind Singh MD at OR [facility] Right: Eye [employer] 12/24/2024 [id number] / [id number] / Lens Intraoc 23.0 - [id number] - [id number] Implanted:Qty: 1 on 07/24/2020 by Arvind Singh MD at OR [facility] Left: Eye [employer] 12/24/2024 [id number] / [id number] / [id number] documented as of this encounter Visit Diagnoses Diagnosis Chronic kidney disease, unspecified CKD stage- Primary documented in this encounter Care Teams Silviculture Professor Relationship Specialty Start Date End Date Kenneth Castano III, MD [address] [place] [address], [place] [address] PCP - General Family Medicine 02/16/13 documented as of this encounter
--- OUTSIDE RECORDS SUMMARY | 2023-11-06 02:26 | External Medical Summary ---
Author Name Unknown Address Unknown Organization [id number]:[facility] [place] [address] [place] [address] Laboratory Report Ordering Provider Test Date Status VERONICA ACOSTA 07/18/2023 07:09:38 Final Observation Date Value Abnormality Reference (Units ) Status Triglyceride 07/18/2023 07:09:38 172 <=174 ( mg/dL) Final Triglyceride Reference Range s (mg/dL):
<150 Acceptable
150-174 Borderline high
175-499 High
>=500 Very high Cholesterol 07/18/2023 07:09:38 138 <200 (mg /dL) Final Total Cholesterol Reference Ranges (mg/dL):
<200 Desirable
200-239 Borderline high
>=240 High HDL 07/18/2023 07:09:38 41 Below low normal >49 (mg/dL) Final HDL Cholesterol Reference Ra nges (mg/dL):
>=60 High (Desirable)
<50 Low (Undesirable) For Females
<40 Low (Undesirable) For Males NON-HDL CHOLESTEROL 07/18/2023 07:09:38 97 <=159 (mg/dL) Final Non-HDL Cholesterol Referenc e Range (mg/dL):
<100 Target level for high risk ASCVD patient
<130 Optimal for general population
130-159 Near optimal for general population
160-189 Borderline High
190-219 High
>=220 Very High Performing Location [facility] [place] [address] [place] [address]
--- OUTSIDE RECORDS SUMMARY | 2023-11-06 02:26 | External Medical Summary ---
Author Name Unknown Address Unknown Organization K09:[facility] [place] [address] [place] [address] Laboratory Report Ordering Provider Test Date Status VERONICA ACOSTA 07/18/2023 07:09:38 Final Observation Date Value Abnormality Reference (Units ) Status BUN 07/18/2023 07:09:38 18 6-20 (mg/dL) Final Creatinine 07/18/2023 07:09:38 1.2 Above high normal 0.5-1.0 (mg/dL) Final Glomerular filtration rate/1.73 sq M.predicted [Volume Rate/Area] in Serum, Plasma or Blood by Creatinine-based formula (CKD-EPI) 07/18/2023 07:09:38 51 Below low normal >=60 (mL/min) Final eGFR is calculated based on the CKD-EPI 2020 equation SODIUM 07/18/2023 07:09:38 143 135-146 (m mol/L) Final Potassium 07/18/2023 07:09:38 4.4 3.5-5.1 (m mol/L) Final Cl 07/18/2023 07:09:38 103 98-107 (mm ol/L) Final CO2 07/18/2023 07:09:38 26 22-32 (mmo l/L) Final Anion gap 07/18/2023 07:09:38 14 7-15 (mmol /L) Final Glucose 07/18/2023 07:09:38 120 70-120 (mg /dL) Final Albumin 07/18/2023 07:09:38 4.3 3.8-5.0 (g /dL) Final AST (Aspartate aminotransferase) 07/18/2023 07:09:38 28 10-35 (U/L) Final Alk Phos 07/18/2023 07:09:38 81 35-130 (U/ L) Final Bilirubin, Total 07/18/2023 07:09:38 0.4 <=1 .2 (mg/dL) Final Calcium 07/18/2023 07:09:38 9.2 8.4-10.2 ( mg/dL) Final Protein 07/18/2023 07:09:38 6.4 6.0-8.3 (g /dL) Final ALT (Alanine aminotransferase) 07/18/2023 07:09:38 29 10-35 (U/L) Final Performing Location [facility] [place] [facility] [place] [address]
--- OUTSIDE RECORDS SUMMARY | 2023-11-06 02:26 | External Medical Summary ---
Author Name Unknown Address Unknown Organization [id number]:[facility] - [address] [place] [id number] Laboratory Report Ordering Provider Test Date Status MANDOJD 07/19/2023 07:12:00 Final Normal: <30 mg/g creatinine< br/>High: 30-300 mg/g creatinine
Very High: >300 mg/g creatinine
Nephrotic: >2200 mg/g creatinine Observation Date Value Abnormality Reference (Units ) Status Albumin, Urine 07/19/2023 07:12:00 <1.20 (mg/d L) Final This testing was performed a s part of a [facility] fulfillment initiative Creatinine, Urine 07/19/2023 07:12:00 60 (m g/dL) Final Albumin/Creatinine [Mass Rat io] in Urine 07/19/2023 07:12:00 <20 <30 (mg/g Creat) Clare sylvester Performing Location [facility] - [address] [facility] [address]
--- OUTSIDE RECORDS SUMMARY | 2023-11-06 02:26 | External Medical Summary ---
Author Name Unknown Address Unknown Organization [id number][place] [place] [address] [place] [address] Laboratory Report Ordering Provider Test Date Status VERONICA ACOSTA 07/18/2023 07:09:38 Final Observation Date Value Abnormality Reference (Units ) Status LDL, (direct) 07/18/2023 07:09:38 71 <=129 (mg/dL) Final LDL Cholesterol Reference Ra nges (mg/dL):
<70 Target level for high risk ASCVD patient
<100 Optimal for general population
100-129 Near optimal for general population
130-159 Borderline high
160-189 High
>=190 Very high Performing Location LAB[facility]ATORY [facility] - [address] [place] [address]
--- OUTSIDE RECORDS SUMMARY | 2023-11-06 02:26 | External Medical Summary | Summary of Care ---
Author Name Unknown Organization [facility] Address [address] [place] [address] Phone [phone] Care Team Providers Care Credit Product Analyst Name Role Phone Omaira TY MD, John E Primary Care Provider [phone] Reason for Visit * Reason Comments Follow Up Encounter Details Date Type Department Care Team (Late st Contact Info) Description 07/25/2023 12:40 PM EDT Office Visit Family Practice [facility] [address] [place] [address] Kenneth Castano III, MD [address] [place] [address] Type 2 diabetes mellitus with stage 3a chronic kidney disease, without long-term current use of insulin ([facility])* Allergies Active Allergy Reactions Criticality Noted Date Comments Bee Venom Anaphylaxis High 02/16/2013 Food (See Comments) Fever 05/27/2011 peppermint documented as of this encounter (statuses as of 07/29/2023) Medications Medication Sig Dispensed Refills Start Date End Date Status Rosuvastatin Calcium 5 MG Oral Tablet (Crestor) TAKE 1 TABLET BY MOUTH IN THE MORNING 90 Tablet 3 01/06/2023 01/06/2024 Active Dulaglutide 0.75 MG/0.5ML Subcutaneous Solution Pen-injector (Trulicity) Inject 0.75 mg under the skin once a week. 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 12/29/2022 Chronic angle-closure glaucoma, right eye, moder ate stage 12/29/2022 Type 2 diabetes mellitus wit h stage 3a chronic kidney disease 12/28/2021 Dyslipidemia 12/28/2021 Primary open-angle glaucoma, right eye, moderate stage 06/29/2021 Stage 3a chronic kidney disease 08/04/2020 Overview: Per CKD protocol Schatzki's ring 03/08/2013 documented as of this encounter (statuses as of 07/29/2023) Resolved Problems Problem Noted Date Diagnosed Date Resolved Date Pre-operative general physical examination 01/21/2023 01/21/2023 Type 2 diabetes mellitus wit h stage 3a chronic kidney disease, without long-term current use of insulin 12/29/2022 01/06/2023 Dyslipidemia, goal LDL below 70 08/24/2021 12/28/2021 Diabetes mellitus without complication 06/29/2021 12/16/2022 Iron overload 02/22/2020 06/30/2022 Prediabetes 06/13/2019 12/28/2021 Kidney disease, chronic, sta ge III (GFR 30-59 ml/min) 01/01/2019 08/07/2020 Overview: Per CKD protocol #1 documented as of this encounter (statuses as of 07/29/2023) Immunizations Name Administration Dates Next Due Pneumococcal [...] drink = 0.6 oz pur e alcohol) PHQ-2 Answer Date Recorded PHQ Adult Total Score 0 12/28/2021 Sex and Gender Information Value Date Recorded Sex Assigned at Not on file Gender Identity Not on file Sexual Orientation Not on file Job Start Date Occupation Industry Not on file Not on file Not on file documented as of this encounter Last Filed Vital Signs Vital Sign Reading Time Taken Comments Blood Pressure 128/78 07/25/2023 1:01 PM EDT Pulse 73 07/25/2023 1:01 PM EDT Temperature 37 C (98.6 F) 07/25/2023 1:01 PM EDT Respiratory Rate 16 07/25/2023 1:01 PM EDT Oxygen Saturation 96% 07/25/2023 1:01 PM EDT Inhaled Oxygen Concentration - - Weight 76.1 kg (167 lb 12.8 oz) 07/25/2023 1:01 PM EDT Height 162.2 cm (5' 3.86") 07/25/2023 1:01 PM ED T Body Mass Index 28.93 07/25/2023 1:01 PM EDT documented in this encounter Progress Notes * Kenneth Castano III, MD - 07/25/2023 1:16 PM EDT Subjective: Jazmine Choudhary is a 67 year old female. 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 2 mL 3 No current facility-administered medications for this visit. Review of patient's allergies indicates: Allergen Reactions Bee Venom Anaphylaxis Food (See Comments) Fever peppermint Past Medical History: Diagnosis Date Diabetes mellitus without complication (HCC) 06/29/2021 Diverticulitis 1999 GERD (gastroesophageal reflux disease) Past Surgical History: Procedure Laterality Date COLONOSCOPY 1999 diverticulitis COLONOSCOPY, DIAGNOSTIC (RECTUM) 03/08/2013 COLONOSCOPY FLEXIBLE PROXIMAL DIAGNOSTIC performed by Gretta Ortiz MD at [facility] COLONOSCOPY, DIAGNOSTIC (RECTUM) N/A 02/16/2019 diverticulosis/COLONOSCOPY FLEXIBLE PROXIMAL DIAGNOSTIC performed by Jeannette Franco DO at ENDOSCOPY [facility] EGD, FLEXIBLE, DIAGNOSTIC 05/27/2011 bxs done, path shows normal tissue negative for celiacs disease and inflammation EGD, FLEXIBLE, DIAGNOSTIC 03/08/2013 UPPER GI ENDOSCOPY DIAGNOSTIC performed by Gretta Ortiz MD at [facility] MISCELLANEOUS ORDER ([facility] ONLY) 1978 Tubal pregancy RECONSTRUCT/REPLACE SHOULDER JOINT Right 08/22/2018 RELIEVE INNER EYE PRESSURE Right 07/10/2020 RIGHT GONIOTOMY performed by Arvind Singh MD at [facility] REMOVAL OF TONSILS, UNDER AGE 10 8 REMOVE CATARACT, INSERT LENS PROSTH Right 07/10/2020 RIGHT EXTRACAPSULAR CATARACT REMOVAL WITH INTRAOCULAR LENS performed by Arvind Singh MD at [facility] REMOVE CATARACT, INSERT LENS PROSTH Left 07/24/2020 LEFT EXTRACAPSULAR CATARACT REMOVAL WITH INTRAOCULAR LENS performed by Arvind Singh MD at [facility] TOTAL ABD HYSTERECTOMY W/WO REMOVAL OF TUBE(S) 1994 Fibroid tumor Objective: The patient is a 67 year old female BP 128/78 | Pulse 73 | Temp 37 C (98.6 F) (Tympanic) | Resp 16 | Ht 1.622 m (5' 3.86") | Wt 76.1 kg (167 lb 12.8 oz) | SpO2 96% | BMI 28.93 kg/m | BSA 1.85 m General: alert, healthy, and no distress Eye Exam: PERRLA, extraocular movements intact, conjunctiva are pink and non- injected, sclera clear Oropharynx: no exudate, no erythema, lips, buccal mucosa, and tongue normal, and mucous membranes are moist Heart: regular rate & rhythm, no murmur, and no gallops Lungs: lungs clear to auscultation Extremities: less than 2 second capillary refill, no joint deformities, effusion, or inflammation ASSESSMENT: E11.22,N18.31 Type 2 diabetes mellitus with stage 3a chronic kidney disease, without long-term current use of insulin (HCC) (primary encounter diagnosis) PLAN: Labs reviewed A1c down kidney function stable call if problems refuses flu vaccine RSV vaccine discussed Follow up in 6 month(s). Kenneth Castano III, MD documented in this encounter Nursing Notes * Lacy Powell LPN - 07/25/2023 1:01 PM EDT Patient presents today for a follow up. She denies any concerns documented in this encounter Plan of Treatment Upcoming Encounters Date Type Department Care Team (Late st Contact Info) Description 01/25/2024 3:20 PM EDT Office Visit Family Practice [address] [place] [address] [facility] III, MD [address] [facility] [address] Scheduled Orders Name Type Priority Associated Diagnoses Orde r Schedule HEMOGLOBIN A1C Lab Routine Type 2 diabetes mellitus with stage 3a chronic kidney disease, without long-term current use of insulin (HCC) Expected: 07/25/2023 (Approximate), Expires: 07/24/2024 BASIC METABOLIC PANEL Lab Routine Type 2 diabetes mellitus with stage 3a chronic kidney disease, without long-term current use of insulin (HCC) Expected: 07/25/2023 (Approximate), Expires: 07/24/2024 Scheduled Procedures Name Priority Associated Diagnoses Date/Ti me COLONOSCOPY FLEXIBLE PROXIMA L DIAGNOSTIC Recall Encounter for screening colonoscopy Health Maintenance Due Date Last Done Comments COVID-19 Vaccine (#1) 01/25/1956 Cologuard 1998 Fecal Occult Blood Test 1998 Sigmoidoscopy 1998 Hepatitis B (1 of 3 - Risk 3-dose series) 2013 Diabetic Eye Exam 08/26/2022 08/26/2021 Depression Screening 12/28/2022 12/28/2021 Diabetic Foot Exam 12/28/2022 12/28/2021 DTaP,Tdap,and Td Vaccines (2 - Td or Tdap) 02/16/2023 02/16/2013 Influenza Vaccine (FLU shot) (#1) 2023 Mammogram 12/30/2023 12/29/2022, 07/27, 06/15/2019, Additional history exists GFR 01/17/2024 07/18/2023, 11/25, 06/28/2022, Additional history exists HbA1c 01/17/2024 07/18/2023, 11/25, 06/28/2022, Additional history exists CKD HGB USE SMARTSET 08345 07/18/202407/18, 06/28/2022, 06/09/2021, Additional history exists CKD PHOS USE SMARTSET 11229 07/18/202406/27, 06/28/2022, 06/09/2021, Additional history exists Albumin/Creatinine Ratio 07/19/2024 023, 07/29/2022, 06/28/2022, Additional history exists DXA Scan 06/18/2026 06/18/2019 Lipid Panel 07/18/2028 07/18/2023, 11/2021, 12/10/2021, Additional history exists Colonoscopy 02/16/2029 02/16/2019, 01/25, [...] this encounter Medical Devices Implanted Type Area Accounts Collector Device Identifier Shelf Expiration Date Model / Serial / Lot Lens Intraoc 18.5 - [id number] - [id number] Implanted:Qty: 1 on 07/10/2020 by Arvind Singh MD at OR [facility] Right: Eye [employer] 12/24/2024 [id number] / [id number] / Lens Intraoc 23.0 - [id number] - [id number] Implanted:Qty: 1 on 07/24/2020 by Arvind Singh MD at OR [facility] Left: Eye [employer]OM[employer] 12/24/2024 [id number] / [id number] / [id number] documented as of this encounter Visit Diagnoses Diagnosis Type 2 diabetes mellitus with stage 3a chronic kidney disease, without long-term current use of insulin (HCC)- Primary documented in this encounter Care Teams Credit Product Analyst Relationship Specialty Start Date End Date Kenneth Castano III, MD [address] [place] [address] PCP - General Family Medicine 02/16/13 documented as of this encounter
--- OUTSIDE RECORDS SUMMARY | 2023-11-06 02:26 | External Medical Summary ---
Author Name Unknown Address Unknown Organization K09:[facility] [place] [address] Laboratory Report Ordering Provider Test Date Status JESÚS LLAMAS III 07/18/2023 07:09:38 Final Observation Date Value Abnormality Reference (Units ) Status WBC, Total 07/18/2023 07:09:38 10.94 Above high normal 4 .00-10.80 (K/uL) Final RBC 07/18/2023 07:09:38 4.67 3.85-5.15 (M/uL) Final Hemoglobin 07/18/2023 07:09:38 14.2 12.0-15.3 (g/dL) Final HCT 07/18/2023 07:09:38 44.1 36.0-45.2 (%) Final MCV 07/18/2023 07:09:38 94.4 81.5-97.5 (fL) Final MCH 07/18/2023 07:09:38 30.4 27.0-34.0 (pg) Final MCHC 07/18/2023 07:09:38 32.2 32.0-36.0 (g/dL) Final RDW 07/18/2023 07:09:38 13.9 11.5-15.5 (%) Final Platelets 07/18/2023 07:09:38 250 140-400 (K /uL) Final MPV 07/18/2023 07:09:38 10.7 6.6-11.1 ( fL) Final Performing Location [facility] [place] [address]
--- OUTSIDE RECORDS SUMMARY | 2023-11-06 02:26 | External Medical Summary | Summary of Care ---
Author Name Unknown Organization [facility] Address [address] [place] [address] Phone [phone] Care Team Providers Care Sand Car Worker Name Role Phone Omaira TY MD, John E Primary Care Provider [phone] Reason for Visit * Reason Onset Date Comments Medication Refill 09/01/2023 Encounter Details Date Type Department Care Team (Late st Contact Info) Description 09/01/2023 Refill Family Practice [facility] [address] [facility] [place] [address] Kenneth aCstano III, MD [address] [place] [address] Allergies Active Allergy Reactions Criticality Noted Date Comments Bee Venom Anaphylaxis High 02/16/2013 Food (See Comments) Fever 05/27/2011 peppermint documented as of this encounter (statuses as of 09/01/2023) Medications Medication Sig Dispensed Refills Start Date End Date Status Rosuvastatin Calcium 5 MG Oral Tablet (Crestor) TAKE 1 TABLET BY MOUTH IN THE MORNING 90 Tablet 3 01/06/2023 01/06/2024 Active Dulaglutide 0.75 MG/0.5ML Subcutaneous Solution Pen-injector (Trulicity) Inject 0.75 mg under the skin once a week. 2 mL 3 09/01/2023 Active Dulaglutide 0.75 MG/0.5ML Subcutaneous Solution Pen-injector (Trulicity) Inject 0.75 mg under the skin once a week. 2 mL 3 07/25/2023 09/01/2023 Discontinued (Refill) documented as of this encounter (statuses as of 09/01/2023) Active Problems Problem Noted Date Diagnosed Date [...] kidney disease 08/04/2020 Overview: Per CKD protocol Manki's ring 03/08/2013 documented as of this encounter (statuses as of 09/01/2023) Resolved Problems Problem Noted Date Diagnosed Date [...] as of this encounter (statuses as of 09/01/2023) Immunizations Name Administration Dates Next Due Pneumococcal [...] encounter Miscellaneous Notes * Telephone Encounter - Earlene Fonseca PA-C - 09/01/2023 1:44 PM ESTSigned Prescriptions: Disp Refills Dulaglutide 0.75 MG/0.5ML Subcutaneous Wilma*2 mL 3 Sig: Inject 0.75 mg under the skin once a week. Authorizing Provider: EARLENE FONSECA * Telephone Encounter - Lacy Powell LPN - 09/01/2023 12:52 PM EST Pending Prescriptions: Disp Refills Dulaglutide 0.75 MG/0.5ML Subcutaneous Wilma*2 mL 3 Sig: Inject 0.75 mg under the skin once a week. * Telephone Encounter - Chintan Lizarraga OSA - 09/01/2023 12:43 PM EST Did you pend patient's preferred pharmacy and medication before forwarding?yes Pharmacy: [facility] Pending Prescriptions: Disp Refills Dulaglutide 0.75 MG/0.5ML Subcutaneous So*2 mL 3 Sig: Inject 0.75 mg under the skin once a week. Last Visit: 07/25/2023 (in office), Visit date not found (telemedicine) Next Visit: 01/25/2024 If no future appointments scheduled, and last appointment is greater than a year ago, please schedule patient for a follow-up appointment Last date the medication was ordered: 07/25/2023 Is this request for a controlled substance?No Urine Drug Screen:No results found for this or any previous visit. Patient Phone Numbers Labs: Lab Results Component Value Date/Time CREAT 1.2 (H) 07/18/2023 07:09 AM CREAT 1.1 (H) 07/02/2020 12:16 PM POTASSIUM 4.4 07/18/2023 07:09 AM POTASSIUM 4.6 07/02/2020 12:16 PM LDLCALC 129 06/07/2017 09:01 AM LDLDIRECT 71 07/18/2023 07:09 AM LDLDIRECT 155 (H) 02/22/2020 08:33 AM ALT 29 07/18/2023 07:09 AM ALT 71 (H) 02/27/2018 11:12 AM HGBA1C 6.2 (H) 07/18/2023 07:09 AM HGBA1C 6.6 (H) 07/02/2020 12:16 PM documented in this encounter Plan of Treatment Upcoming Encounters Date Type Department Care Team (Late st Contact Info) Description 01/25/2024 3:20 PM EDT Office Visit Family Practice [facility] [address] [facility] [place] [address] Kenneth Castano III, MD [address] [facility] [place] [place] [address] Scheduled Procedures Name Priority Associated Diagnoses Date/Ti [...] Additional history exists CKD HGB USE SMARTSET 26923 07/18/202407/18, 06/28/2022, 06/09/2021, Additional history exists CKD PHOS USE SMARTSET 36569 07/18/202406/27, 06/28/2022, 06/09/2021, Additional history exists Albumin/Creatinine Ratio 07/19/2024 023, 07/29/2022, 06/28/2022, Additional history exists DXA Scan 06/18/2026 06/18/2019 Lipid Panel 07/18/2028 07/18/2023, 1011/2021, 12/10/2021, Additional history exists Colonoscopy 02/16/2029 02/16/2019, [...] this encounter Medical Devices Implanted Type Area Director Software Quality Assurance Device Identifier Shelf Expiration Date Model / Serial / Lot Lens Intraoc 18.5 - [id number] - [id number] Implanted:Qty: 1 on 07/10/2020 by Arvind Singh MD at OR [facility] Right: Eye [employer] 12/24/2024 [id number] / [id number] / Lens Intraoc 23.0 - [id number] - [id number] Implanted:Qty: 1 on 07/24/2020 by Arvind Singh MD at OR [facility] Left: Eye [employer] 12/24/2024 [id number] / [id number] / [id number] documented as of this encounter Care Teams Sand Car Worker Relationship Specialty Start Date End Date Kenneth Castano III, MD 200 [facility] [place] [address] PCP - General Family Medicine 02/16/13 documented as of this encounter
--- OUTSIDE RECORDS SUMMARY | 2023-11-06 02:26 | External Medical Summary | Summary of Care ---
Author Name Unknown Organization [facility] Address [address] [place] [address] Phone [phone] Care Team Providers Care Dewatering Filtering Supervisor Name Role Phone Omaira TY MD, Kenneth Mays Primary Care Provider [phone] Reason for Visit * Reason Comments Outpatient Testing Encounter Details Date Type Department Care Team (Latest Contact Info) Description 07/18/2023 7:10 AM EDT Laboratory Laboratory 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, unspecified whether rodent exterminator insulin use (HCC); Type 2 diabetes mellitus with stage 3a chronic kidney disease, without long-term current use of insulin (HCC); Type 2 diabetes mellitus with both eyes affected by mild nonproliferative retinopathy without macular edema, without long-term current use of insulin ([facility]); Dyslipidemia; Chronic kidney disease, unspecified CKD stage Allergies Active Allergy Reactions Criticality Noted Date Comments Bee Venom Anaphylaxis High 02/16/2013 Food (See Comments) Fever 05/27/2011 peppermint documented as of this encounter (statuses as of 07/18/2023) Medications Medication Sig Dispensed Refills Start Date End Date Status Rosuvastatin Calcium 5 MG Oral Tablet (Crestor) TAKE 1 TABLET BY MOUTH IN THE MORNING 90 Tablet 3 01/06/2023 01/06/2024 Active Dulaglutide 0.75 MG/0.5ML Subcutaneous Solution Pen-injector (Trulicity) INJECT 0.75 MG UNDER THE SKIN ONCE A WEEK 6 mL 3 12/29/2022 12/29/2023 Active documented as of this encounter (statuses as of 07/18/2023) Active Problems Problem Noted Date Diagnosed Date [...] as of this encounter (statuses as of 07/18/2023) Resolved Problems Problem Noted Date Diagnosed Date [...] as of this encounter (statuses as of 07/18/2023) Immunizations Name Administration Dates Next Due Pneumococcal [...] on file documented as of this encounter Plan of Treatment Upcoming Encounters Date Type Department Care Team (Late st Contact Info) Description 07/25/2023 12:40 PM EDT [facility] [place] [address] [facility] [place] [address] Kenneth Castano III, MD [address] [facility] [place] [address] Pending Results Name Type Priority Associated Diagnoses Date /Time HEMOGLOBIN A1C Lab Routine 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, unspecified whether penitentiary insulin use (HCC) 07/18/2023 7:09 AM EDT COMPREHENSIVE METABOLIC PANEL Lab Routine Type 2 diabetes mellitus with stage 3a chronic kidney disease, without long-term current use of insulin ([facility]) Type 2 diabetes mellitus with both eyes affected by mild nonproliferative retinopathy without macular edema, without long-term current use of insulin ([facility]) 07/18/2023 7:09 AM EDT LIPID PANEL WITH DIRECT LDL IF TG IS HIGH Lab Routine Type 2 diabetes mellitus with stage 3a chronic kidney disease, without long-term current use of insulin ([facility]) Type 2 diabetes mellitus with both eyes affected by mild nonproliferative retinopathy without macular edema, without long-term current use of insulin ([facility]) Dyslipidemia 07/18/2023 7:09 AM EDT CBC Lab Routine Chronic kidney disease, unspecified CKD stage 07/18/2023 7:09 AM EDT PHOSPHORUS Lab Routine Chronic kidney disease, unspecified CKD stage 07/18/2023 7:09 AM EDT Scheduled Procedures Name Priority Associated Diagnoses Date/Ti me COLONOSCOPY FLEXIBLE PROXIMA L DIAGNOSTIC Recall Encounter for screening colonoscopy Health Maintenance Due Date Last Done Comments COVID-19 Vaccine (#1) 01/25/1956 Cologuard 1998 Fecal Occult Blood Test 1998 Sigmoidoscopy 1998 Hepatitis B (1 of 3 - Risk 3-dose series) 2013 Depression Screening 12/28/2022 12/28/2021 Diabetic Foot Exam 12/28/2022 12/28/2021 DTaP,Tdap,and Td Vaccines (2 - Td or Tdap) 02/16/2023 02/16/2013 Influenza Vaccine (FLU shot) (#1) 2023 GFR 06/23/2023 12/21/2022, 11/2021, 12/10/2021, Additional history exists HbA1c 06/23/2023 12/21/2022, 11/2021, 12/10/2021, Additional history exists CKD HGB USE SMARTSET 27822 06/28/202306/28, 06/09/2021, 07/02/2020, Additional history exists CKD PHOS USE SMARTSET 10841 06/28/202311/2021, 06/09/2021, 07/02/2020 Albumin/Creatinine Ratio 07/29/2023 022, 06/28/2022, [...] this encounter Medical Devices Implanted Type Area Wet Milling Wheel Operator Device Identifier Shelf Expiration Date Model / Serial / Lot Lens Intraoc 18.5 - [id number] - [id number] Implanted:Qty: 1 on 07/10/2020 by Arvind Singh MD at OR [facility] Right: Eye [employer] 12/24/2024 [id number] / [id number] / Lens Intraoc 23.0 - [id number] - [id number] Implanted:Qty: 1 on 07/24/2020 by Arvind Singh MD at OR [facility] Left: Eye [employer] 12/24/2024 [id number] / [id number] documented as of this encounter Visit Diagnoses Diagnosis 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
--- OUTSIDE RECORDS SUMMARY | 2023-11-06 02:26 | External Medical Summary ---
Author Name Unknown Address Unknown Organization K09:[facility] [place] [address] Laboratory Report Ordering Provider Test Date Status JESÚS LLAMAS III 07/18/2023 07:09:38 Final Observation Date Value Abnormality Reference (Units ) Status Phosphate 07/18/2023 07:09:38 4.7 2.5-4.8 (m g/dL) Final Performing Location [facility] [place] [address]
--- NOTE | 2023-11-06 02:55 | Emergency Department Note ---
Impression & Plan Acute pain of left hip, Ambulatory dysfunction ED Provider Note Provider: Tyler Bowden MD DATE OF SERVICE: 11/06/2023 CHIEF COMPLAINT: Left hip pain HISTORY OF PRESENT ILLNESS: Patient is a 68-year-old female history of diverticulitis as well as right shoulder fracture presenting here today via ambulance from home. States she was well until this past evening when she bent over and picked up some soap that she dropped in the shower. After this was able to get out and drive within a difficulty using her left leg due to pain in left hip region. Denies any falls. Stepson helped lowered to the floor and she laid in the floor until she was unable to get up and eventually earlier this morning decided to call the ambulance. Denies any numbness or tingling extremities. Denies other pain. Denies again falling. Pain localized to left hip particularly with movement. Denies any other abdominal pain. States she did have a prior dislocation of her hips in the past but no prior surgeries. Denies feeling any pop. Denies any pain medication states she has had issues with abdominal abscesses before related to pain medicine and does not want any. Ate dinner around 5:30 PM. PAST MEDICAL HISTORY: As noted above MEDICATIONS: Reviewed home medications does not include any significant anticoagulants or aspirin SOCIAL HISTORY: Resides at home PHYSICAL EXAM: GENERAL: alert and oriented in no acute distress on stretcher appears somewhat uncomfortable Head: normocephalic and atraumatic EYES: No injection, discharge or icterus. NECK: Trachea midline. ENT: Mucous membranes pink and moist. LUNGS: Airway patent. No retractions or tachypnea HEART: Regular rate and rhythm. ABDOMEN: Soft and non-tender, without guarding or rebound. SKIN: Acyanotic, warm, dry, without rashes EXTREMITIES: Without swelling, tenderness or deformity except for some slight tenderness to left lateral hip and pain with any ROM of the left hip. No significant tenderness or swelling of the left knee, lower leg, ankle, or foot. Intact left DP pulse as well as intact sensation of left lower leg. Good movement of the lower joints central pain and limitations around left hip. Right lower extremity without issue. NEUROLOGICAL: No aphasia. No facial droop or slurred speech. Sensation to gross touch normal. CONTINUOUS CARDIAC MONITORING: was ordered and showed a heart rate of 70s to 80s bpm in normal sinus rhythm PDMP was checked without noted issue. 1 view pelvis as well as left hip x-ray without evidence of obvious hip fracture or dislocation. Some rotation but no clear pelvic fracture appreciated Patient's imaging reviewed. Differential includes Fracture, dislocation, neurovascular compromise, compartment syndrome, soft tissue injury, diverticulitis, hematoma, infection, as well as other pathologies. IMPRESSION/MEDICAL DECISION MAKING: Patient with pain in the left hip after bending to reach something over. No significant leg shortening. No other falls or trauma. No tenderness of the left lower leg or significant swelling. Doubt this represents DVT. Doubt cellulitis given the mechanisms. Difficulty even trying to walk. X-rays were obtained of the pelvis and hip without evidence of fracture or dislocation obviously on the imaging. Declined pain medication here initially. Will obtain a CT scan of the hip and pelvic region given her continued pain and basic labs will be obtained. Blood work without anemia. Slight leukocytes of 13.3. No significant electrolyte abnormality or signs of renal dysfunction. CT abdomen pelvis and hip were completed. After several reassessments the patient was finally willing to accept some Tylenol. Developed a bit of a headache but this improved with the Tylenol. Some delay on overnight radiology but CTs were only with some inflammation and trace fluid around the lesser trochanter. Likely inflammatory rather than infectious in my estimation. Patient still with fairly significant left hip pain. Given lidocaine patch and was accepting of some Toradol. Will need to come in in any event given her lack of ability to ambulate with the hip pain. Seems likely musculoskeletal. Again not having other infectious symptoms and urinalysis negative for signs of infection. DIAGNOSIS: Left hip pain, ambulatory dysfunction DISPOSITION: Hospitalist will evaluate Patient was agreeable with this plan. Past Med/Surg History Medical History Diverticulitis of large intestine with abscess DECEMBER 2018 - HOSPITALIZED & ABX TX FOR - RESLOVED/ NO FURTHER ISSUES WITH Diverticulosis of colon Iron disorder HX OF "elevated Fe & ferritin; genetic testing for hemochromatosis negative 08/09/17" Psoriasis Surgical History History of colonoscopy History of hammer toe correction R History of hysterectomy History of tonsillectomy Status post right shoulder hemiarthroplasty 07/2018 due to fracture Biceps tenodesis done at same time Family History Father Alzheimer disease Mother Diabetes mellitus, type 2 Other Family history non-contributory Social History Smoking Status: Never smoker Second Hand Exposure: No; Do You Dip or Chew Tobacco: No; Hx Alcohol Use: No Hx Substance Use: No Preferred Language: Tongan Communication Ability: Effective 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 Beliefs That Will Affect Care: None marital status: Single Current Living Situation: Family Current Living Situation Comment: lives with son Feels Safe at Home: Yes Assistive Devices: None Allergies Allergies Allergy/AdvReac Type Severity Reaction Status Date / Time bee venom protein (honey bee) Allergy Unknown ANAPHLYAXIS Verified 11/06/23 02:42 peppermint Allergy Unknown high fever Verified 11/06/23 02:42 oxycodone AdvReac Severe sick Verified 11/06/23 06:47 Home Meds Home Medications Medication Instructions Recorded Confirmed dulaglutide 0.75 mg/0.5 mL 0.75 mg subcut WK 11/06/23 11/06/23 subcutaneous pen injector (Trulicity) rosuvastatin 5 mg tablet 5 mg PO DAILY 11/06/23 11/06/23 Results & Data (ED) Vital Signs Vital Signs - 24 hr 11/06/23 02:07 11/06/23 02:07 11/06/23 04:00 Temperature 36.8 C Temperature Source Oral Pulse Rate 86 Pulse Rate [Finger] 84 Pulse Rate from SpO2 Sensor Respiratory Rate 14 16 Respiratory Effort / Characteristics Non-Labored Spontaneous Non-Labored Spontaneous Non-Labored Spontaneous Respiratory Depth Normal Normal Normal Blood Pressure 145/32 H Blood Pressure [Right Arm] 131/62 Blood Pressure Mean 69 Blood Pressure Mean [Right Arm] 85 Pulse Oximetry 97 98 Oxygen Delivery Method Room Air Room Air Sepsis New/Unexplained Change in Mental Status No Sepsis Action Taken by Nursing No Action Required 11/06/23 06:23 11/06/23 06:23 11/06/23 06:30 Temperature Temperature Source Pulse Rate 72 73 76 Pulse Rate [Finger] Pulse Rate from SpO2 Sensor 72 74 Respiratory Rate 19 17 Respiratory Effort / Characteristics Respiratory Depth Blood Pressure 118/57 L Blood Pressure [Right Arm] Blood Pressure Mean 77 Blood Pressure Mean [Right Arm] Pulse Oximetry 95 96 Oxygen Delivery Method Sepsis New/Unexplained Change in Mental Status Sepsis Action Taken by Nursing 11/06/23 07:00 11/06/23 07:30 Temperature Temperature Source Pulse Rate 67 70 Pulse Rate [Finger] Pulse Rate from SpO2 Sensor Respiratory Rate 14 15 Respiratory Effort / Characteristics Respiratory Depth Blood Pressure 121/62 127/59 L Blood Pressure [Right Arm] Blood Pressure Mean 81 81 Blood Pressure Mean [Right Arm] Pulse Oximetry 94 95 Oxygen Delivery Method Room Air Room Air Sepsis New/Unexplained Change in Mental Status Sepsis Action Taken by Nursing Laboratory Data 11/06/23 03:39 11/06/23 03:39 Lab Results 11/06/23 11/06/23 Range/Units 03:39 06:00 WBC 13.33 H (4.8-10.8) K/ul RBC 4.40 (4.20-5.40) M/uL Hgb 13.3 (12.0-16.0) g/dl Hct 39.8 (37.0-47.0) % MCV 90.5 (80.0-100.0) fL MCH 30.2 (25.0-34.0) pg MCHC 33.4 (32.0-36.0) g/dL RDW Std Deviation 42.3 (36.4-46.3) fL RDW Coeff of Destiny 12.7 (11.5-14.5) % Plt Count 221 (130-400) K/uL MPV 9.7 (9.4-12.4) fL Immature Gran % (Auto) 0.5 % Neut % (Auto) 78.7 % Lymph % (Auto) 13.2 % [place] % (Auto) 6.4 % Eos % (Auto) 0.8 % Baso % (Auto) 0.4 % Neut # (Auto) 10.49 H (1.40-6.50) K/uL Lymph # (Auto) 1.76 (1.20-3.40) K/uL [place] # (Auto) 0.85 H (0.11-0.59) K/uL Eos # (Auto) 0.11 (0.00-0.50) K/uL Baso # (Auto) 0.05 (0.00-0.20) K/uL Immature Gran # (Auto) 0.07 (0.01-0.20) K/uL Sodium 137 (136-145) mmol/L Potassium 4.0 (3.5-5.1) mmol/L Chloride 103 (98-107) mmol/L Carbon Dioxide 26 (21-32) mmol/L Anion Gap 8 (3-11) BUN 20 (6-23) mg/dl Creatinine 1.00 (0.6-1.2) mg/dl Est Cr Clr Drug Dosing 54.0 ml/min Est GFR ( Amer) 66.1 ml/min Est GFR (Non-Af Amer) 57.0 ml/min BUN/Creatinine Ratio 20.0 (10-20) Glucose 142 H (70-99(Fasting)) mg/dl Calcium 8.4 L (8.6-10.3) mg/dl Magnesium 1.8 (1.7-2.4) mg/dl Total Bilirubin 0.6 (0.2-1.0) mg/dl AST 17 (13-39) U/L ALT 14 (7-52) U/L Alkaline Phosphatase 59 (34-104) U/L Total Creatine Kinase 54 (26-192) U/L Total Protein 6.6 (6.0-8.3) gm/dl Albumin 4.1 (3.4-5.0) gm/dl Globulin 2.5 (2.5-4.0) gm/dl Albumin/Globulin Ratio 1.6 (0.9-2) Urine Color Yellow Urine Appearance Clear (Clear) Urine pH 6.0 (4.5-7.5) Ur Specific [place] 1.015 (1.000-1.030) Urine Protein Negative (Negative) Urine Glucose (UA) Negative (Negative) Urine Ketones Negative (Negative) Urine Blood Negative (Negative) Urine Nitrite Negative (Negative) Urine Bilirubin Negative (Negative) Urine Urobilinogen Negative (Negative) Ur Leukocyte Esterase Negative (Negative) Administered Medications Discontinued Medications Acetaminophen (Ofirmev) 1,000 mg in 100 mls @ 400 mls/hr IV NOW STA Stop: 11/06/23 05:13 Last Infusion: 11/06/23 05:44 Dose: Infused Documented By: Admin: 11/06/23 05:14 Dose: 400 mls/hr Documented By: JOS Sodium Chloride (Nss) 500 mls @ 999 mls/hr IV .Q31M ONE Stop: 11/06/23 06:19 Last Infusion: 11/06/23 06:34 Dose: Infused Documented By: Admin: 11/06/23 06:01 Dose: 999 mls/hr Documented By: JOS Calcium Gluconate () 1,000 mg in 60 mls @ 240 mls/hr IV NOW STA Stop: 11/06/23 06:15 Last Infusion: 11/06/23 06:34 Dose: Infused Documented By: Admin: 11/06/23 06:16 Dose: 240 mls/hr Documented By: JOS Ketorolac Tromethamine (Ketorolac Tromethamine 15 Mg/Ml Vial) 10 mg IV NOW ONE Stop: 11/06/23 05:46 Last Admin: 11/06/23 06:01 Dose: 10 mg Documented By: JOS Lidocaine (Lidocaine 5% 1 Patch) 1 patch TD NOW STA Stop: 11/06/23 05:46 Last Admin: 11/06/23 06:01 Dose: 1 patch Documented By: JOS Imaging Data Radiologist's Impression: Abdomen/Pelvis CT 11/06/23 03:16 CT OF THE ABDOMEN AND PELVIS WITHOUT CONTRAST CLINICAL HISTORY: Left lower quadrant pain. Left hip pain. COMPARISON STUDY: CT of the abdomen and pelvis March 30, 2023. TECHNIQUE: Axial images of the abdomen and pelvis were obtained without IV contrast. Images were reviewed in the axial, sagittal, and coronal planes. Automated exposure control was utilized for the study. A dose lowering technique was utilized adhering to the principles of ALARA. FINDINGS: Lung bases are unremarkable. There are no renal, ureteral or bladder calculi. There is no hydronephrosis or hydroureter. Evaluation of the remainder of the abdomen and pelvis is suboptimal on this unenhanced exam. Liver, adrenal glands and pancreas are unremarkable. Mild splenomegaly is unchanged. The spleen is lobulated. Colonic diverticulosis is present without evidence for acute diverticulitis. There is no evidence for a bowel obstruction. No bowel wall thickening is identified on unenhanced exam. No acute fracture within the visualized skeletal structures is present. Left hip CT will be reported separately. Note is made of a small amount of fluid as well as stranding adjacent to the lesser trochanter of the left femur. This was not evident on prior CT. This is at the insertion of the left gluteus minimus. IMPRESSION: 1. No urinary calculi or hydronephrosis. 2. Colonic diverticulosis. No evidence for acute diverticulitis. 3. No acute process within the abdomen or pelvis on unenhanced exam. 4. Small amount of fluid and stranding adjacent to the lesser trochanter of the left femur at the insertion of the left gluteus minimus, new since prior exam. This could reflect gluteal tendinosis/tear or trochanteric bursitis. ACT 112: Negative or not required by law. Electronically signed by: Ancelmo Dahl M.D. 11/06/2023 7:52 AM Discharge Plan Visit Data Chief Complaint: Hip Pain ED Provider: Tyler Bowden Discharge Problem: Acute pain of left hip, Ambulatory dysfunction Patient Disposition: Being Evaluated by Hospitalist Forms Stand Alone Forms: [employer] [facility] Prescriptions Prescriptions: No Action rosuvastatin 5 mg tablet 5 mg PO DAILY Trulicity 0.75 mg/0.5 mL pen injector 0.75 mg SUBCUT WK Referrals Referrals: Kenneth Castano MD [Primary Care Provider] -
[2023-11-06 04:01] LABS: Basophils # (auto) 0.05 K/uL (0.00-0.20); Basophils % (auto) 0.4 %; Eosinophils # (auto) 0.11 K/uL (0.00-0.50); Eosinophils % (auto) 0.8 %; Hematocrit (blood only) 39.8 % (37.0-47.0); Hemoglobin 13.3 g/dl (12.0-16.0); Immature Granulocytes # (auto) 0.07 K/uL (0.01-0.20); Immature Granulocytes % (auto) 0.5 %; Lymphocytes # (auto) 1.76 K/uL (1.20-3.40); Lymphocytes % (auto) 13.2 %; Mean Corpuscular Hemoglobin 30.2 pg (25.0-34.0); Mean Corpuscular Hgb Conc 33.4 g/dL (32.0-36.0); Mean Corpuscular Volume 90.5 fL (80.0-100.0); Mean Platelet Volume 9.7 fL (9.4-12.4); Monocytes # (auto) 0.85 K/uL (0.11-0.59); Monocytes % (auto) 6.4 %; Neutrophils # (auto) 10.49 K/uL (1.40-6.50); Neutrophils % (auto) 78.7 %; Platelet Count 221 K/uL (130-400); RDW Coefficient of Variation 12.7 % (11.5-14.5); RDW Standard Deviation 42.3 fL (36.4-46.3); White Blood Count 13.33 K/ul (4.8-10.8)
[2023-11-06 04:16] LABS: Albumin Globulin Ratio 1.6 (0.9-2); Albumin Level 4.1 gm/dl (3.4-5.0); Bilirubin,Total 0.6 mg/dl (0.2-1.0); Calcium 8.4 mg/dl (8.6-10.3); Est GFR (African American) 66.1 ml/min; Globulin 2.5 gm/dl (2.5-4.0); Magnesium 1.8 mg/dl (1.7-2.4); Total Protein 6.6 gm/dl (6.0-8.3)
[2023-11-06] MEDS: ACETAMINOPHEN 1,000 MG/100 ML VIAL IV STA (05:14)
[2023-11-06] MEDS: SODIUM CHLORIDE 0.9% 500 ML IV ONE (06:01)
[2023-11-06] MEDS: LIDOCAINE 5% 1 PATCH TD STA (06:01)
[2023-11-06] MEDS: KETOROLAC TROMETHAMINE 15 MG/ML VIAL IV ONE (06:01)
[2023-11-06] MEDS: CALCIUM GLUCONATE 1,000 MG/60 ML BAG IV STA (06:16)
[2023-11-06 06:18] LABS: Appearance Urine Clear (Clear); Bilirubin Urine Negative (Negative); Blood Urine Negative (Negative); Color Urine Yellow; Glucose Urine UA Negative (Negative); Ketones Urine Negative (Negative); Leukocyte Esterase Urine Negative (Negative); Nitrite Urine Negative (Negative); Protein Urine Negative (Negative); Specific Gravity Urine 1.015 (1.000-1.030); Urobilinogen Urine Negative (Negative)
--- NOTE | 2023-11-06 06:42 | History & Physical Report ---
Date of Service November 06, 2023 Assessment & Plan (1) Left hip pain: Plan: Possible strain following recent bending episode hyperlipidemia, on statin Rx DM 2 on Trulicity, well-controlled as of recent hemoglobin A1c of 6.2 last June [address] abdomen pelvis results May need Orthopedics consult ISS BG goal 1 10-1 40, carb count coverage DVT prophylaxis. SCDs until CT abdomen pelvis results known Full code Text document was generated using [employer] voice recognition software. It may contain grammatical or spelling errors. Kindly contact undersigned for clarification of any documentation item in question. History of Present Illness Chief Complaint: Left hip pain Primary Care Provider: Kenneth Castano MD History obtained from patient and records. Medical history significant for hyperlipidemia, DM 2 on Trulicity, GERD. Last confinement June 2019 under Orthopedics service for elective right shoulder surgery. Patient noted achy left hip pain worse on ambulation after bending over to reach for soap that fell to the ground. No fever, no chills, no recent falls. Patient requested stepson to take her to ER because she could not move from pain. Medical History as above Surgical History : Shoulder surgery, right eye glaucoma surgery, tonsillectomy, cataract surgeries, ANDRE Family History : Heart disease, DM, breast cancer Personal/Social history : Non-smoker, no EtOH intake, retired [employer] Allergies Allergy/AdvReac Type Severity Reaction Status Date / Time bee venom protein (honey bee) Allergy Unknown ANAPHLYAXIS Verified 11/06/23 02:42 peppermint Allergy Unknown high fever Verified 11/06/23 02:42 oxycodone AdvReac Severe sick Verified 11/06/23 06:47 Home Medications Medication Instructions Recorded Confirmed Type dulaglutide 0.75 mg/0.5 mL 0.75 mg subcut WK 11/06/23 11/06/23 History subcutaneous pen injector ([facility]) rosuvastatin 5 mg tablet 5 mg PO DAILY 11/06/23 11/06/23 History Past Med/Surg History Medical History Diverticulitis of large intestine with abscess DECEMBER 2018 - HOSPITALIZED & ABX TX FOR - RESLOVED/ NO FURTHER ISSUES WITH Diverticulosis of colon Iron disorder HX OF "elevated Fe & ferritin; genetic testing for hemochromatosis negative 08/09/17" Psoriasis Surgical History History of colonoscopy History of hammer toe correction R History of hysterectomy History of tonsillectomy Status post right shoulder hemiarthroplasty 07/2018 due to fracture Biceps tenodesis done at same time Family History Father Alzheimer disease Mother Diabetes mellitus, type 2 Other Family history non-contributory Social History Smoking Status: Never smoker Second Hand Exposure: No; Do You Dip or Chew Tobacco: No; Hx Alcohol Use: No Hx Substance Use: No Preferred Language: Macedonian Communication Ability: Effective Plate Conditioner Required: No Beliefs That Will Affect Care: None marital status: Single Current Living Situation: Family Current Living Situation Comment: lives with son Feels Safe at Home: Yes Assistive Devices: None Review of Systems Review of Systems: As per HPI, all other systems reviewed and negative Physical Exam Physical Exam: GENERAL: Slightly uncomfortable, obese, pleasant, no respiratory distress SKIN: Normal color, warm HEENT: Bespectacled, pink palpebral conjunctivae, no ptosis, dry buccal mucosa NECK : Supple, no tenderness CHEST : CTA, no tenderness HEART : RRR, no obvious murmurs ABDOMEN: Some distention, nontender EXTREMITIES : No LE swelling, left hip tenderness, no other conspicuous deformities noted NEUROLOGIC : Coherent, no facial asymmetry, no other gross focality Results & Data Results & Data Vital Signs (Past 12 Hours) Vital Signs Temp Pulse Pulse Resp BP BP Pulse Ox 11/06/23 06:30 76 17 118/57 L 96 11/06/23 06:23 73 19 95 11/06/23 06:23 72 11/06/23 04:00 84 16 131/62 98 11/06/23 02:07 36.8 C 86 14 145/32 H 97 O2 Del Method 11/06/23 06:30 11/06/23 06:23 11/06/23 06:23 11/06/23 04:00 Room Air 11/06/23 02:07 Room Air Laboratory Results Laboratory Results WBC 13.33 K/ul (4.8-10.8) H 11/06/23 03:39 RBC 4.40 M/uL (4.20-5.40) 11/06/23 03:39 Hgb 13.3 g/dl (12.0-16.0) 11/06/23 03:39 Hct 39.8 % (37.0-47.0) 11/06/23 03:39 MCV 90.5 fL (80.0-100.0) 11/06/23 03:39 MCH 30.2 pg (25.0-34.0) 11/06/23 03:39 MCHC 33.4 g/dL (32.0-36.0) 11/06/23 03:39 RDW Std Deviation 42.3 fL (36.4-46.3) 11/06/23 03:39 RDW Coeff of Destiny 12.7 % (11.5-14.5) 11/06/23 03:39 Plt Count 221 K/uL (130-400) 11/06/23 03:39 MPV 9.7 fL (9.4-12.4) 11/06/23 03:39 Immature Gran % (Auto) 0.5 % 11/06/23 03:39 Neut % (Auto) 78.7 % 11/06/23 03:39 Lymph % (Auto) 13.2 % 11/06/23 03:39 [place] % (Auto) 6.4 % 11/06/23 03:39 Eos % (Auto) 0.8 % 11/06/23 03:39 Baso % (Auto) 0.4 % 11/06/23 03:39 Neut # (Auto) 10.49 K/uL (1.40-6.50) H 11/06/23 03:39 Lymph # (Auto) 1.76 K/uL (1.20-3.40) 11/06/23 03:39 [place] # (Auto) 0.85 K/uL (0.11-0.59) H 11/06/23 03:39 Eos # (Auto) 0.11 K/uL (0.00-0.50) 11/06/23 03:39 Baso # (Auto) 0.05 K/uL (0.00-0.20) 11/06/23 03:39 Immature Gran # (Auto) 0.07 K/uL (0.01-0.20) 11/06/23 03:39 Sodium 137 mmol/L (136-145) 11/06/23 03:39 Potassium 4.0 mmol/L (3.5-5.1) 11/06/23 03:39 Chloride 103 mmol/L (98-107) 11/06/23 03:39 Carbon Dioxide 26 mmol/L (21-32) 11/06/23 03:39 Anion Gap 8 (3-11) 11/06/23 03:39 BUN 20 mg/dl (6-23) 11/06/23 03:39 Creatinine 1.00 mg/dl (0.6-1.2) 11/06/23 03:39 Est Cr Clr Drug Dosing 54.0 ml/min 11/06/23 03:39 Est GFR ( Amer) 66.1 ml/min 11/06/23 03:39 Est GFR (Non-Af Amer) 57.0 ml/min 11/06/23 03:39 BUN/Creatinine Ratio 20.0 (10-20) 11/06/23 03:39 Glucose 142 mg/dl (70-99(Fasting)) H 11/06/23 03:39 Calcium 8.4 mg/dl (8.6-10.3) L 11/06/23 03:39 Magnesium 1.8 mg/dl (1.7-2.4) 11/06/23 03:39 Total Bilirubin 0.6 mg/dl (0.2-1.0) 11/06/23 03:39 AST 17 U/L (13-39) 11/06/23 03:39 ALT 14 U/L (7-52) 11/06/23 03:39 Alkaline Phosphatase 59 U/L (34-104) 11/06/23 03:39 Total Protein 6.6 gm/dl (6.0-8.3) 11/06/23 03:39 Albumin 4.1 gm/dl (3.4-5.0) 11/06/23 03:39 Globulin 2.5 gm/dl (2.5-4.0) 11/06/23 03:39 Albumin/Globulin Ratio 1.6 (0.9-2) 11/06/23 03:39 Urine Color Yellow 11/06/23 06:00 Urine Appearance Clear (Clear) 11/06/23 06:00 Urine pH 6.0 (4.5-7.5) 11/06/23 06:00 Ur Specific [place] 1.015 (1.000-1.030) 11/06/23 06:00 Urine Protein Negative (Negative) 11/06/23 06:00 Urine Glucose (UA) Negative (Negative) 11/06/23 06:00 Urine Ketones Negative (Negative) 11/06/23 06:00 Urine Blood Negative (Negative) 11/06/23 06:00 Urine Nitrite Negative (Negative) 11/06/23 06:00 Urine Bilirubin Negative (Negative) 11/06/23 06:00 Urine Urobilinogen Negative (Negative) 11/06/23 06:00 Ur Leukocyte Esterase Negative (Negative) 11/06/23 06:00 Diagnostic Findings Pelvic x-ray as per my initial interpretation no obvious fractures
[2023-11-06] MEDS ORDERED: DEXTROSE 50% 50 ML SYRINGE IV PRN (06:46)
[2023-11-06] MEDS ORDERED: KETOROLAC TROMETHAMINE 15 MG/ML VIAL IV PRN (06:46)
[2023-11-06] MEDS ORDERED: GLUCOSE 40% GEL 15 GM TUBE PO PRN (06:46)
[2023-11-06] MEDS ORDERED: CARBOHYDRATES FOR HYPOGLYCEMIA PO PRN (06:46)
[2023-11-06] MEDS ORDERED: traMADol HCL 50 MG TABLET PO PRN (06:46)
[2023-11-06] MEDS ORDERED: PROMETHAZINE HCL 12.5 MG in SODIUM CHLORIDE 0.9% 50 ML IV PRN (06:46)
[2023-11-06] MEDS ORDERED: GLUCAGON FOR INJ 1 MG VIAL SQ PRN (06:46)
[2023-11-06] MEDS ORDERED: GLUCOSE 10 TAB/TUBE PO PRN (06:46)
--- NOTE | 2023-11-06 07:54 | CT Scan Report ---
CT OF THE ABDOMEN AND PELVIS WITHOUT CONTRAST CLINICAL HISTORY: Left lower quadrant pain. Left hip pain. COMPARISON STUDY: CT of the abdomen and pelvis March 30, 2023. TECHNIQUE: Axial images of the abdomen and pelvis were obtained without IV contrast. Images were revi ewed in the axial, sagittal, and coronal planes. Automated exposure control was utilized for the bharati dy. A dose lowering technique was utilized adhering to the principles of ALARA. FINDINGS: Lung bases are unremarkable. There are no renal, ureteral or bladder calculi. There is no h ydronephrosis or hydroureter. Evaluation of the remainder of the abdomen and pelvis is suboptimal on this unenhanced exam. Liver, adrenal glands and pancreas are unremarkable. Mild splenomegaly is uncha nged. The spleen is lobulated. Colonic diverticulosis is present without evidence for acute diverticu litis. There is no evidence for a bowel obstruction. No bowel wall thickening is identified on unenha nced exam. No acute fracture within the visualized skeletal structures is present. Left hip CT will b e reported separately. Note is made of a small amount of fluid as well as stranding adjacent to the l marie trochanter of the left femur. This was not evident on prior CT. This is at the insertion of the left gluteus minimus. IMPRESSION: 1. No urinary calculi or hydronephrosis. 2. Colonic diverticulosis. No evidence for acute diverticulitis. 3. No acute process within the abdomen or pelvis on unenhanced exam. 4. Small amount of fluid and stranding adjacent to the lesser trochanter of the left femur at the ins ertion of the left gluteus minimus, new since prior exam. This could reflect gluteal tendinosis/tear or trochanteric bursitis. ACT 112: Negative or not required by law. Electronically signed by: Ancelmo Dahl M.D. 11/06/2023 7:52 AM
--- NOTE | 2023-11-06 07:56 | CT Scan Report ---
CT hip LT wo con CLINICAL HISTORY: Left hip pain. COMPARISON STUDY: Pelvis and left hip radiographs performed earlier today. CT of the abdomen and pel vis March 30, 2023. TECHNIQUE: Axial images of the left hip were obtained without IV contrast. Sagittal and coronal recon structions were viewed. Automated exposure control was utilized for the study. A dose lowering techn ique was utilized adhering to the principles of ALARA. FINDINGS: Alignment of the left hip is anatomic. There is no acute fracture. There is no osseous lesi on. There is no evidence for avascular necrosis of the left femoral head. Mild left hip osteophytosis . Minimal joint space narrowing is present. Note is made of a small amount of fluid and stranding adj acent to the greater trochanter of the left femur at the insertion of the left gluteus minimus. IMPRESSION: 1. No fractures within the left hip. 2. Edema and stranding adjacent to the lesser trochanter of the left femur at the insertion of the le ft gluteus minimus. This could reflect left gluteus minimus tendinosis/tear or trochanteric bursitis. ACT 112: Negative or not required by law. Electronically signed by: Ancelmo Dahl M.D. 11/06/2023 7:54 AM
[2023-11-06] MEDS: INSULIN ASPART PER UNIT CHARGE SC SCH (08:51)
--- NOTE | 2023-11-06 08:52 | XRay Report ---
XR hip LT 2V w pelvis CLINICAL HISTORY: Left hip pain. COMPARISON: CT of the abdomen and pelvis March 30, 2023. FINDINGS: Sacroiliac joints and symphysis pubis are intact. There is no fracture within the pelvis o r hips. No osseous lesions are present. There is no evidence for avascular necrosis of the femoral he ads. There is mild bilateral hip osteophytosis. IMPRESSION: 1. No fractures within the pelvis or hips. 2. Mild bilateral hip osteoarthritis. ACT 112: Negative or not required by law. Electronically signed by: Ancelmo Dahl M.D. 11/06/2023 8:51 AM
--- NOTE | 2023-11-06 13:34 | Hospitalist Progress Note ---
Date of Service November 06, 2023 Assessment & Plan (1) Left hip pain: Plan: Left hip pain Likely secondary to left gluteus minimus tendinosis/tear or trochanteric bursitis --Left Hip CT:No fractures within the left hip.. Edema and stranding adjacent to the lesser trochanter of the left femur at the insertion of the left gluteus minimus. This could reflect left gluteus minimus tendinosis/tear or trochanteric bursitis. Fall precautions Pain control as needed Orthopedics consulted PT OT as able Hyperlipidemia on statin DM II Last HbA1C: 6.2Oct 2022 Continue insulin while hospitalized Monitor BGs DVT Px: Heparin SQ Code Status Full code Subjective Patient is seen and examined at bedside States having left hip pain and tenderness Reports difficulty with ambulation secondary to pain Denies any chest pain, dyspnea, dizziness, nausea, vomiting, abdominal pain No other complaints Review of Systems Review of Systems: All systems reviewed & are unremarkable except as noted in Subjective Physical Exam Physical Exam: Physical Exam: Vitals signs as noted above General Appearance:Obese, no apparent distress Head: normocephalic, Atraumatic Eyes: normal inspection, EOMI Neck: supple, Trachea midline Respiratory/Chest: Normal breath sounds, CTA, No accessory muscle use Cardiovascular: S1, S2, No murmur Abdomen/GI:Soft, Non tender, Bowel sounds present Extremities/Musculoskeletal:normal inspection, no edema, Left hip tender, decreased ROM Neurologic/Psych:AAOX3, grossly no focal neurological deficits Skin: normal color, warm Results & Data Results & Data Vital Signs (Past 12 Hours) Vital Signs Temp Pulse Pulse Resp BP BP Pulse Ox 11/06/23 10:55 74 14 131/58 L 93 11/06/23 08:00 74 20 111/62 94 11/06/23 07:30 70 15 127/59 L 95 11/06/23 07:00 67 14 121/62 94 11/06/23 06:30 76 17 118/57 L 96 11/06/23 06:23 73 19 95 11/06/23 06:23 72 11/06/23 04:00 84 16 131/62 98 11/06/23 02:07 36.8 C 86 14 145/32 H 97 O2 Del Method 11/06/23 10:55 Room Air 11/06/23 08:00 Room Air 11/06/23 07:30 Room Air 11/06/23 07:00 Room Air 11/06/23 06:30 11/06/23 06:23 11/06/23 06:23 11/06/23 04:00 Room Air 11/06/23 02:07 Room Air Laboratory Results Short CBC 11/06/23 Range/Units 03:39 WBC 13.33 H (4.8-10.8) K/ul Hgb 13.3 (12.0-16.0) g/dl Hct 39.8 (37.0-47.0) % Plt Count 221 (130-400) K/uL BMP 11/06/23 03:39 Sodium 137 Potassium 4.0 Chloride 103 Carbon Dioxide 26 BUN 20 Creatinine 1.00 Glucose 142 H Calcium 8.4 L Cardiac Enzymes 11/06/23 Range/Units 03:39 Total Creatine Kinase 54 (26-192) U/L Liver Function 11/06/23 Range/Units 03:39 Total Bilirubin 0.6 (0.2-1.0) mg/dl AST 17 (13-39) U/L ALT 14 (7-52) U/L Alkaline Phosphatase 59 (34-104) U/L Albumin 4.1 (3.4-5.0) gm/dl Urine 11/06/23 Range/Units 06:00 Urine Color Yellow Urine Appearance Clear (Clear) Urine pH 6.0 (4.5-7.5) Ur Specific Bruce 1.015 (1.000-1.030) Urine Protein Negative (Negative) Urine Glucose (UA) Negative (Negative)
[2023-11-06] MEDS: ACETAMINOPHEN 325 MG TAB PO PRN (14:53)
[2023-11-06] MEDS: ROSUVASTATIN CALCIUM 5 MG TAB PO SCH (17:18)
--- NOTE | 2023-11-06 18:32 | Orthopedic Consultation ---
Date of Service November 06, 2023 Assessment & Plan (1) Left hip pain: 68-year-old female admitted with acute onset of left hip pain consistent with muscle strain of the iliopsoas muscle and hip flexors. She does clinically have some tenderness palpation there and some swelling. There is no signs of underlying bony injury specifically a stress fracture. This that will likely resolve with time. Plan: At this time would recommend PT and OT. Weight-bear as tolerated. I just work on gait training and walking. Does not need any significant muscle exercises. As far as muscle treatment I did recommend maybe a Medrol Dosepak of some sort or a Toradol if her kidneys are such that they can tolerate that. Topically she could use some ice. No further imaging is needed at this time. Once again she can weight-bear as tolerated. Any orthopedic questions can be directly [phone] History of Present Illness Reason for Consultation: . Left hip pain. Requesting Physician: . Attending Physician: Sharif Davis MD . Patient is a 68-year-old female who lives with some family members who pres ents now with acute onset of left hip pain. She says this all started last night. She was in the bathroom got in the tub and bent over and got some soap. She got out of the tub and it was not till she was walking away that she developed acute onset of left hip pain. She describes this pain up in her ASIS and anterior hip and groin area. She has had difficulty walking. She is brought to emergency room and admitted for this. Denies any history of trauma. There was no fall. It really does not hurt her too much while she is just resting. Allergies Allergy/AdvReac Type Severity Reaction Status Date / Time bee venom protein (honey bee) Allergy Unknown ANAPHLYAXIS Verified 11/06/23 02:42 peppermint Allergy Unknown high fever Verified 11/06/23 02:42 oxycodone AdvReac Severe sick Verified 11/06/23 06:47 Home Medications Medication Instructions Recorded Confirmed Type dulaglutide 0.75 mg/0.5 mL 0.75 mg subcut WK 11/06/23 11/06/23 [facility] rosuvastatin 5 mg tablet 5 mg PO DAILY 11/06/23 11/06/23 History Past Med/Surg History Medical History Diverticulitis of large intestine with abscess DECEMBER 2018 - HOSPITALIZED & ABX TX FOR - RESLOVED/ NO FURTHER ISSUES WITH Psoriasis Iron disorder HX OF "elevated Fe & ferritin; genetic testing for hemochromatosis negative 08/09/17" Diverticulosis of colon Surgical History History of tonsillectomy History of hysterectomy History of hammer toe correction R History of colonoscopy Status post right shoulder hemiarthroplasty 07/2018 due to fracture Biceps tenodesis done at same time Family History Father Alzheimer disease Mother Diabetes mellitus, type 2 Other Family history non-contributory Social History Smoking Status: Never smoker Second Hand Exposure: No; Do You Dip or Chew Tobacco: No; Hx Alcohol Use: No Hx Substance Use: No Preferred Language: Malay Communication Ability: Effective Catheterization Laboratory Technician Required: No Beliefs That Will Affect Care: None marital status: Single Current Living Situation: Other Current Living Situation Comment: Step son stays at times- He works nights so she is home alone at night Other Information That Helps Us Care for You: No Feels Safe at Home: Yes Safety Concerns: Feels Safe At This Time Assistive Devices: Glasses Assistive Devices Comment: Intact Review of Systems All systems reviewed & are unremarkable except as noted in HPI & below. Physical Exam . Physical examination is a pleasant middle-age female. She is lying in bed and was talking on the phone when I went in today. Examination left hip reveals no visible deformity. She describes pain right over her ASIS and anterior hip area. There does appear to be some tenderness to palpation in this area as well as some mild swelling. She can do a straight leg raise but it is painful and takes quite a bit of effort. She has no particular pain with passive hip motion. She is neurologically intact and there is no bruising. Results & Data Results & Data Laboratory Results . White blood cell count slightly elevated 13.33. Diagnostic Findings . X-rays of the left hip and pelvis were reviewed. No signs of fracture. Mild arthritis. Mild osteopenia. CT scan was also reviewed. It shows little bit of fluid around her iliopsoas muscle and trochanter. No signs of fracture. PG Care Time/CCT Total # of Minutes Spent Total Time Spent with Patient: Total time spent is greater than 50% in coordination of care (as documented) at patient's floor/unit and/or counseling patient: Coding Level of Care Code 59894 IN/OBS CONSULT LVL 4,60M Diagnoses Left hip pain M25.552
[2023-11-06] MEDS: HEPARIN SOD 5,000 UNIT/0.5 ML VIAL SQ SCH (23:06)
[2023-11-07 07:33] LABS: Basophils # (auto) 0.03 K/uL (0.00-0.20); Basophils % (auto) 0.3 %; Eosinophils # (auto) 0.17 K/uL (0.00-0.50); Eosinophils % (auto) 1.8 %; Hematocrit (blood only) 38.5 % (37.0-47.0); Hemoglobin 12.9 g/dl (12.0-16.0); Immature Granulocytes # (auto) 0.04 K/uL (0.01-0.20); Immature Granulocytes % (auto) 0.4 %; Lymphocytes # (auto) 2.14 K/uL (1.20-3.40); Lymphocytes % (auto) 22.6 %; Mean Corpuscular Hemoglobin 30.5 pg (25.0-34.0); Mean Corpuscular Hgb Conc 33.5 g/dL (32.0-36.0); Mean Platelet Volume 10.1 fL (9.4-12.4); Monocytes # (auto) 0.66 K/uL (0.11-0.59); Neutrophils # (auto) 6.44 K/uL (1.40-6.50); Neutrophils % (auto) 67.9 %; Platelet Count 205 K/uL (130-400); RDW Coefficient of Variation 13.1 % (11.5-14.5); RDW Standard Deviation 43.9 fL (36.4-46.3); Red Blood Count 4.23 M/uL (4.20-5.40); White Blood Count 9.48 K/ul (4.8-10.8)
[2023-11-07 07:47] LABS: BUN Creatinine Ratio 16.4 (10-20); Calcium 8.6 mg/dl (8.6-10.3); Creatinine Clr Calc Pharmacy 49.1 ml/min; Est GFR (African American) 58.9 ml/min; Est GFR (Non-African American) 50.8 ml/min; Potassium 4.2 mmol/L (3.5-5.1)
[2023-11-07] MEDS ORDERED: methylPREDNISolone 4 MG TAB, 6 DAY TAPER PO SCH (09:45)
[2023-11-07] MEDS: methylPREDNISolone 4 MG TAB PO SCH ×2 (10:06→12:57)
[2023-11-07] MEDS: FAMOTIDINE 10 MG TABLET PO SCH (10:09)
--- NOTE | 2023-11-07 16:31 | Hospitalist Progress Note ---
Date of Service November 07, 2023 Assessment & Plan (1) Left hip pain: Plan: Left hip pain Likely secondary to muscle strain of iliopsoas and hip flexors. --Left Hip CT:No fractures within the left hip.. Edema and stranding adjacent to the lesser trochanter of the left femur at the insertion of the left gluteus minimus. This could reflect left gluteus minimus tendinosis/tear or trochanteric bursitis. Fall precautions Pain control as needed Appreciate orthopedics input Started on Medrol Dosepak Needs follow-up with orthopedics on discharge Continue PT OT May need rehab Hyperlipidemia on statin DM II Last HbA1C: 6.27 Jun 2023 Diet controlled Refused insulin DVT Px: Heparin SQ Code Status Full code Admission and Anticipated Discharge Date Admission Date: November 06, 2023 Subjective Patient is seen and examined at bedside Left hip pain is improving No new complaints Denies any chest pain, dyspnea, dizziness, nausea, vomiting, abdominal pain Review of Systems Review of Systems: All systems reviewed & are unremarkable except as noted in Subjective Physical Exam Physical Exam: Physical Exam: Vitals signs as noted above General Appearance:Obese, no apparent distress Head: normocephalic, Atraumatic Eyes: normal inspection, EOMI Neck: supple, Trachea midline Respiratory/Chest: Normal breath sounds, CTA, No accessory muscle use Cardiovascular: S1, S2, No murmur Abdomen/GI:Soft, Non tender, Bowel sounds present Extremities/Musculoskeletal:normal inspection, no edema, Left hip tender, decreased ROM Neurologic/Psych:AAOX3, grossly no focal neurological deficits Skin: normal color, warm Results & Data Results & Data Vital Signs (Past 12 Hours) Vital Signs Temp Pulse Pulse Resp BP Pulse Ox O2 Del Method 11/07/23 15:56 36.6 C 75 16 132/59 L 95 Room Air 11/07/23 11:19 36.7 C 70 14 138/64 94 Room Air 11/07/23 07:44 36.6 C 67 12 116/64 94 Room Air Laboratory Results Short CBC 11/07/23 Range/Units 06:54 WBC 9.48 (4.8-10.8) K/ul Hgb 12.9 (12.0-16.0) g/dl Hct 38.5 (37.0-47.0) % Plt Count 205 (130-400) K/uL BMP 11/07/23 06:54 Sodium 140 Potassium 4.2 Chloride 105 Carbon Dioxide 30 BUN 18 Creatinine 1.10 Glucose 115 H Calcium 8.6
[2023-11-08] MEDS: methylPREDNISolone 4 MG TAB PO SCH (06:21)
--- NOTE | 2023-11-08 12:17 | Hospitalist Progress Note ---
Date of Service November 08, 2023 Assessment & Plan (1) Left hip pain: Plan: Left hip pain Likely secondary to muscle strain of iliopsoas and hip flexors. --Left Hip CT:No fractures within the left hip.. Edema and stranding adjacent to the lesser trochanter of the left femur at the insertion of the left gluteus minimus. This could reflect left gluteus minimus tendinosis/tear or trochanteric bursitis. Fall precautions Pain control as needed Appreciate orthopedics input Started on Medrol Dosepak Needs follow-up with orthopedics on discharge Continue PT OT: Recommends to return home Advised to follow-up with orthopedics as outpatient if no resolution of symptoms Hyperlipidemia on statin DM II Last HbA1C: 6.27 Jun 2023 Diet controlled Refused insulin DVT Px: Heparin SQ Code Status Full code Disposition Home Admission and Anticipated Discharge Date Admission Date: November 06, 2023 Subjective Patient is seen and examined at bedside Left hip pain continues to improve Was able to ambulate in hallways with no issues Eager to get discharged Offers no other complaints Did well with physical therapy today Denies any chest pain, dyspnea, dizziness, nausea, vomiting, abdominal pain Review of Systems Review of Systems: All systems reviewed & are unremarkable except as noted in Subjective Physical Exam Physical Exam: Physical Exam: Vitals signs as noted above General Appearance:Obese, no apparent distress Head: normocephalic, Atraumatic Eyes: normal inspection, EOMI Neck: supple, Trachea midline Respiratory/Chest: Normal breath sounds, CTA, No accessory muscle use Cardiovascular: S1, S2, No murmur Abdomen/GI:Soft, Non tender, Bowel sounds present Extremities/Musculoskeletal:normal inspection, no edema, Left hip tender, decreased ROM Neurologic/Psych:AAOX3, grossly no focal neurological deficits Skin: normal color, warm Results & Data Results & Data Vital Signs (Past 12 Hours) Vital Signs Temp Pulse Resp BP Pulse Ox O2 Del Method 11/08/23 08:19 36.4 C L 69 18 147/79 H 97 Room Air
--- OUTSIDE RECORDS SUMMARY | 2023-11-08 12:19 | External Medical Summary | Summary of Care ---
Author Name Unknown Organization [facility] Address [address] [place] [address] Phone [phone] Care Team Providers Care Summer Analyst Name Role Phone Omaira TY MD, Kenneth Mays Primary Care Provider [phone] Reason for Visit * Reason Onset Date Comments Order Request 11/04/2023 Mammogram Encounter Details Date Type Department Care Team (Late st Contact Info) Description 11/04/2023 Telephone Radiology, [address] [address] Services, Scheduling [address] [place] [address] Order Request (Mammogram ) Allergies Active Allergy Reactions Criticality Noted Date Comments Bee Venom Anaphylaxis High 02/16/2013 Food (See Comments) Fever 05/27/2011 peppermint documented as of this encounter (statuses as of 11/07/2023) Medications Medication Sig Dispensed Refills Start Date End Date Status Rosuvastatin Calcium 5 MG Oral Tablet (Crestor) TAKE 1 TABLET BY MOUTH IN THE MORNING 90 Tablet 3 01/06/2023 01/27/2024 Active Dulaglutide 0.75 MG/0.5ML Subcutaneous Solution Pen-injector (Trulicity) Inject 0.75 mg under the skin once a week. 2 mL 3 09/01/2023 Active Dulaglutide 0.75 MG/0.5ML Subcutaneous Solution Pen-injector (Trulicity) Inject 0.75mg under the skin once a week. 2 mL 3 09/02/2023 Active documented as of this encounter (statuses as of 11/07/2023) Active Problems Problem Noted Date Diagnosed Date [...] as of this encounter (statuses as of 11/07/2023) Resolved Problems Problem Noted Date Diagnosed Date [...] as of this encounter (statuses as of 11/07/2023) Immunizations Name Administration Dates Next Due Pneumococcal [...] encounter Miscellaneous Notes * Telephone Encounter - Lacy Powell LPN - 11/04/2023 3:02 PM EST Mammogram ordered. * Telephone Encounter - Luna Garcia OSA - 11/04/2023 2:37 PM EST [place] patient is scheduled for a mammogram. Please place order. Thank you documented in this encounter Plan of Treatment Upcoming Encounters Date Type Department Care Team (Late st Contact Info) Description 01/03/2024 11:45 AM EDT Imaging Radiology [address] [facility] [place] [address] 01/25/2024 3:20 PM EDT Office Visit Family Practice [facility] [address] [facility] [place] [address] Kenneth Castano III, MD [address] [facility] [place] [address] Scheduled Orders Name Type Priority Associated Diagnoses Orde r Schedule MAMMOGRAM SCREENING RAOUL BILATERAL Medical Imaging Routine Breast cancer screening by mammogram Expected: 11/04/2023, Expires: 12/02/2024 Scheduled Procedures Name Priority Associated Diagnoses Date/Ti [...] 01/17/2024 07/18/2023, 11/25, 06/28/2022, Additional history exists Diabetic Eye Exam 03/07/2024 03/07/2023, , 08/26/2021, Additional history exists CKD HGB USE SMARTSET 14321 07/18/202407/18, 06/28/2022, 06/09/2021, Additional history exists CKD PHOS USE SMARTSET 49655 07/18/202406/27, 06/28/2022, 06/09/2021, Additional history exists Albumin/Creatinine Ratio 07/19/2024 023, 07/29/2022, 06/28/2022, Additional history exists DXA Scan 06/18/2026 06/18/2019 Lipid Panel 07/18/2028 07/18/2023, 10/0 11/2021, 12/10/2021, Additional history exists Colonoscopy 02/16/2029 [...] this encounter Medical Devices Implanted Type Area Parts Sales Associate Device Identifier Shelf Expiration Date Model / Serial / Lot Lens Intraoc 18.5 - [id number] - [id number] Implanted:Qty: 1 on 07/10/2020 by Arvind Singh MD at [facility] Right: Eye [employer] 12/24/2024 [id number] / [id number] / Lens Intraoc 23.0 - [id number] - [id number] Implanted:Qty: 1 on 07/24/2020 by Arvind Singh MD at [facility] Left: Eye [employer] 12/24/2024 [id number] / [id number] / [id number] documented as of this encounter Visit Diagnoses Diagnosis Breast cancer screening by mammogram- Primary documented in this encounter Care Teams Summer Analyst Relationship Specialty Start Date End Date Kenneth Castano III, MD [address] [place] [address] PCP - General Family Medicine 02/16/13 documented as of this encounter
--- NOTE | 2023-11-08 12:24 | Discharge Summary ---
Date of Service November 08, 2023 Admission HPI Per Admitting Provider History obtained from patient and records. Medical history significant for hyperlipidemia, DM 2 on Trulicity, GERD. Last confinement June 2019 under Orthopedics service for elective right shoulder surgery. Patient noted achy left hip pain worse on ambulation after bending over to reach for soap that fell to the ground. No fever, no chills, no recent falls. Patient requested stepson to take her to ER because she could not move from pain. Medical History as above Surgical History : Shoulder surgery, right eye glaucoma surgery, tonsillectomy, cataract surgeries, ANDRE Family History : Heart disease, DM, breast cancer Personal/Social history : Non-smoker, no EtOH intake, retired [employer] Admission Exam Per Admitting Provider GENERAL: Slightly uncomfortable, obese, pleasant, no respiratory distress SKIN: Normal color, warm HEENT: Bespectacled, pink palpebral conjunctivae, no ptosis, dry buccal mucosa NECK : Supple, no tenderness CHEST : CTA, no tenderness HEART : RRR, no obvious murmurs ABDOMEN: Some distention, nontender EXTREMITIES : No LE swelling, left hip tenderness, no other conspicuous deformities noted NEUROLOGIC : Coherent, no facial asymmetry, no other gross focality Principal Diagnosis Left hip pain Likely secondary to muscle strain of iliopsoas and hip flexors. Discharge Data Allergies Allergy/AdvReac Type Severity Reaction Status Date / Time bee venom protein (honey bee) Allergy Unknown ANAPHLYAXIS Verified 11/06/23 02:42 peppermint Allergy Unknown high fever Verified 11/06/23 02:42 oxycodone AdvReac Severe sick Verified 11/06/23 06:47 Consultations 11/06/23 05:58 ED Decision to Admit Stat 11/06/23 08:07 Consult Orthopedic Surgery Routine Procedures Performed Laboratory Results WBC 9.48 K/ul (4.8-10.8) 11/07/23 06:54 RBC 4.23 M/uL (4.20-5.40) 11/07/23 06:54 Hgb 12.9 g/dl (12.0-16.0) 11/07/23 06:54 Hct 38.5 % (37.0-47.0) 11/07/23 06:54 MCV 91.0 fL (80.0-100.0) 11/07/23 06:54 MCH 30.5 pg (25.0-34.0) 11/07/23 06:54 MCHC 33.5 g/dL (32.0-36.0) 11/07/23 06:54 RDW Std Deviation 43.9 fL (36.4-46.3) 11/07/23 06:54 RDW Coeff of Destiny 13.1 % (11.5-14.5) 11/07/23 06:54 Plt Count 205 K/uL (130-400) 11/07/23 06:54 MPV 10.1 fL (9.4-12.4) 11/07/23 06:54 Immature Gran % (Auto) 0.4 % 11/07/23 06:54 Neut % (Auto) 67.9 % 11/07/23 06:54 Lymph % (Auto) 22.6 % 11/07/23 06:54 [place] % (Auto) 7.0 % 11/07/23 06:54 Eos % (Auto) 1.8 % 11/07/23 06:54 Baso % (Auto) 0.3 % 11/07/23 06:54 Neut # (Auto) 6.44 K/uL (1.40-6.50) 11/07/23 06:54 Lymph # (Auto) 2.14 K/uL (1.20-3.40) 11/07/23 06:54 [place] # (Auto) 0.66 K/uL (0.11-0.59) H 11/07/23 06:54 Eos # (Auto) 0.17 K/uL (0.00-0.50) 11/07/23 06:54 Baso # (Auto) 0.03 K/uL (0.00-0.20) 11/07/23 06:54 Immature Gran # (Auto) 0.04 K/uL (0.01-0.20) 11/07/23 06:54 Sodium 140 mmol/L (136-145) 11/07/23 06:54 Potassium 4.2 mmol/L (3.5-5.1) 11/07/23 06:54 Chloride 105 mmol/L (98-107) 11/07/23 06:54 Carbon Dioxide 30 mmol/L (21-32) 11/07/23 06:54 Anion Gap 5 (3-11) 11/07/23 06:54 BUN 18 mg/dl (6-23) 11/07/23 06:54 Creatinine 1.10 mg/dl (0.6-1.2) 11/07/23 06:54 Est Cr Clr Drug Dosing 49.1 ml/min 11/07/23 06:54 Est GFR ( Amer) 58.9 ml/min 11/07/23 06:54 Est GFR (Non-Af Amer) 50.8 ml/min 11/07/23 06:54 BUN/Creatinine Ratio 16.4 (10-20) 11/07/23 06:54 Glucose 115 mg/dl (70-99(Fasting)) H 11/07/23 06:54 POC Glucose 122 mg/dl (70-99) H 11/06/23 12:51 Calcium 8.6 mg/dl (8.6-10.3) 11/07/23 06:54 Magnesium 1.8 mg/dl (1.7-2.4) 11/06/23 03:39 Total Bilirubin 0.6 mg/dl (0.2-1.0) 11/06/23 03:39 AST 17 U/L (13-39) 11/06/23 03:39 ALT 14 U/L (7-52) 11/06/23 03:39 Alkaline Phosphatase 59 U/L (34-104) 11/06/23 03:39 Total Creatine Kinase 54 U/L (26-192) 11/06/23 03:39 Total Protein 6.6 gm/dl (6.0-8.3) 11/06/23 03:39 Albumin 4.1 gm/dl (3.4-5.0) 11/06/23 03:39 Globulin 2.5 gm/dl (2.5-4.0) 11/06/23 03:39 Albumin/Globulin Ratio 1.6 (0.9-2) 11/06/23 03:39 Urine Color Yellow 11/06/23 06:00 Urine Appearance Clear (Clear) 11/06/23 06:00 Urine pH 6.0 (4.5-7.5) 11/06/23 06:00 Ur Specific Cut Off 1.015 (1.000-1.030) 11/06/23 06:00 Urine Protein Negative (Negative) 11/06/23 06:00 Urine Glucose (UA) Negative (Negative) 11/06/23 06:00 Urine Ketones Negative (Negative) 11/06/23 06:00 Urine Blood Negative (Negative) 11/06/23 06:00 Urine Nitrite Negative (Negative) 11/06/23 06:00 Urine Bilirubin Negative (Negative) 11/06/23 06:00 Urine Urobilinogen Negative (Negative) 11/06/23 06:00 Ur Leukocyte Esterase Negative (Negative) 11/06/23 06:00 Impressions Hip/Pelvis X-Ray 11/06/23 02:29 XR hip LT 2V w pelvis CLINICAL HISTORY: Left hip pain. COMPARISON: CT of the abdomen and pelvis March 30, 2023. FINDINGS: Sacroiliac joints and symphysis pubis are intact. There is no fracture within the pelvis or hips. No osseous lesions are present. There is no evidence for avascular necrosis of the femoral heads. There is mild bilateral hip osteophytosis. IMPRESSION: 1. No fractures within the pelvis or hips. 2. Mild bilateral hip osteoarthritis. ACT 112: Negative or not required by law. Electronically signed by: Ancelmo Dahl M.D. 11/06/2023 8:51 AM Abdomen/Pelvis CT 11/06/23 03:16 CT OF THE ABDOMEN AND PELVIS WITHOUT CONTRAST CLINICAL HISTORY: Left lower quadrant pain. Left hip pain. COMPARISON STUDY: CT of the abdomen and pelvis March 30, 2023. TECHNIQUE: Axial images of the abdomen and pelvis were obtained without IV contrast. Images were reviewed in the axial, sagittal, and coronal planes. Automated exposure control was utilized for the study. A dose lowering technique was utilized adhering to the principles of ALARA. FINDINGS: Lung bases are unremarkable. There are no renal, ureteral or bladder calculi. There is no hydronephrosis or hydroureter. Evaluation of the remainder of the abdomen and pelvis is suboptimal on this unenhanced exam. Liver, adrenal glands and pancreas are unremarkable. Mild splenomegaly is unchanged. The spleen is lobulated. Colonic diverticulosis is present without evidence for acute diverticulitis. There is no evidence for a bowel obstruction. No bowel wall thickening is identified on unenhanced exam. No acute fracture within the visualized skeletal structures is present. Left hip CT will be reported separately. Note is made of a small amount of fluid as well as stranding adjacent to the lesser trochanter of the left femur. This was not evident on prior CT. This is at the insertion of the left gluteus minimus. IMPRESSION: 1. No urinary calculi or hydronephrosis. 2. Colonic diverticulosis. No evidence for acute diverticulitis. 3. No acute process within the abdomen or pelvis on unenhanced exam. 4. Small amount of fluid and stranding adjacent to the lesser trochanter of the left femur at the insertion of the left gluteus minimus, new since prior exam. This could reflect gluteal tendinosis/tear or trochanteric bursitis. ACT 112: Negative or not required by law. Electronically signed by: Ancelmo Dahl M.D. 11/06/2023 7:[address] 11/06/23 03:16 CT hip LT wo con CLINICAL HISTORY: Left hip pain. COMPARISON STUDY: Pelvis and left hip radiographs performed earlier today. CT of the abdomen and pelvis March 30, 2023. TECHNIQUE: Axial images of the left hip were obtained without IV contrast. Sagittal and coronal reconstructions were viewed. Automated exposure control was utilized for the study. A dose lowering technique was utilized adhering to the principles of ALARA. FINDINGS: Alignment of the left hip is anatomic. There is no acute fracture. There is no osseous lesion. There is no evidence for avascular necrosis of the left femoral head. Mild left hip osteophytosis. Minimal joint space narrowing is present. Note is made of a small amount of fluid and stranding adjacent to the greater trochanter of the left femur at the insertion of the left gluteus minimus. IMPRESSION: 1. No fractures within the left hip. 2. Edema and stranding adjacent to the lesser trochanter of the left femur at the insertion of the left gluteus minimus. This could reflect left gluteus minimus tendinosis/tear or trochanteric bursitis. ACT 112: Negative or not required by law. Electronically signed by: Ancelmo Dahl M.D. 11/06/2023 7:54 AM Ordered Studies 11/06/23 03:16 CT abd pelvis wo con Stat CT hip LT wo con Stat Hospital Course (1) Left hip pain: Left hip pain Likely secondary to muscle strain of iliopsoas and hip flexors. --Left Hip CT:No fractures within the left hip.. Edema and stranding adjacent to the lesser trochanter of the left femur at the insertion of the left gluteus minimus. This could reflect left gluteus minimus tendinosis/tear or trochanteric bursitis. Fall precautions Pain control as needed Appreciate orthopedics input Started on Medrol Dosepak Needs follow-up with orthopedics on discharge Continue PT OT: Recommends to return home Advised to follow-up with orthopedics as outpatient if no resolution of symptoms Hyperlipidemia on statin DM II Last HbA1C: 6.27 Jun 2023 Diet controlled Refused insulin DVT Px: Heparin SQ Code Status Full code Disposition Home Total Time Total Time Spent Total Time Spent (In Minutes): 54 minutes Discharge Plan Discharge Items Patient Disposition: Home - Self-Care Reason For Visit: L HIP PAIN Discharge Diagnosis: Left hip pain Activity: Per Instructions section Exercise/Sports: Gradually increase as tolerated Non-emergency contact: Primary Care Provider and Surgeon Call non-emergency contact if: you have any medication questions, your symptoms worsen, your pain is concerning for you and you have a fever Follow-up/Referrals: Kenneth Castano MD [Primary Care Provider] - Diet: Carb Consistent or DM2 and Heart Healthy Addtl Attending Provider Instructions: Follow-up with your primary care physician Dr. Castano in 1 week Follow-up with your orthopedic surgeon Dr. Moise as needed --Complete the Medrol dose pack as advised. Seek immediate medical attention if your symptoms reoccur or worsen Please take all medications as instructed on discharge list below. Please call if you have any questions or problems. You can reach a [facility] hospitalist on duty at [facility] 24 hours a day by calling [phone] Pending Studies at Discharge: No Stand-Alone Forms: My [facility], Smoking Cessation Medications and DC Order Prescriptions: New methylprednisolone [Medrol (Zhao)] 4 mg tablets,dose pack 4 mg PO UD Qty: 21 0RF Rx Instructions: As directed Continued rosuvastatin 5 mg tablet 5 mg PO DAILY Trulicity 0.75 mg/0.5 mL pen injector 0.75 mg SUBCUT WK Discharge Orders: Discharge Order (Routine); Ordered 11/08/23 Ordered By: Sharif Davis Admission Data Admit Date/Time: 11/06/23 06:45 Attending Provider: Sharif Davis Admit Provider: Rick Galicia Primary Care Provider: Kenton,Kenneth E. Other Providers: Rick Galicia; Morgan Bell; Ovidio Burton; Braxton Bangura; Angie Beal; Isaac Upton; Sandra Lara; Kevin Davidson; Jose Raul Harman; Osiel Mendosa; Tyler Mejia; Jose Raul Greco; Duane Lynn; Helder Tsai; Cabrera Bains; Thierno Palomo; Sandra Lawson; Po Churchill; Zaid Montalvo; Noah Marquez; Clari Whiteside; Kenneth Rapp; Sen Ng; Nakia Durant; Chirs Riley; Hoda Loyola
[2023-11-08] MEDS ORDERED: methylPREDNISolone 4 MG TAB PO SCH (21:00)
[2023-11-09] MEDS ORDERED: methylPREDNISolone 4 MG TAB PO SCH (07:00)
[2023-11-10] MEDS ORDERED: methylPREDNISolone 4 MG TAB PO SCH (07:00)
[2023-11-11] MEDS ORDERED: methylPREDNISolone 4 MG TAB PO SCH (07:00)
[2023-11-12] MEDS ORDERED: methylPREDNISolone 4 MG TAB PO SCH (07:00)
== END 2023-11-08 13:26 | disposition home or self-care (01) ==
LOC: 3N 02:20 → EDINP 02:20 → ED 02:20 → 3N 16:52